=== PATIENT | male | born 1945 | race Caucasian/White ===

== ENCOUNTER → 2017-03-01 | Outpatient (CLI) | payer MEDICARE, BC ==
--- NOTE | 2017-03-01 10:22 | XR ---
EXAMINATION TYPE: XR chest 2V DATE OF EXAM: 03/01/2017 COMPARISON: NONE TECHNIQUE: PA and lateral views submitted. HISTORY: Preop for knee replacement FINDINGS: The lungs are clear and there is no pneumothorax, pleural effusion, or focal pneumonia. Hypertrophi c and degenerative change of the spine. Arthropathy of the shoulders. Chronic deformity of the right clavicle. Bilateral pleural-based thickening. Subsegmental linear atelectasis noted. IMPRESSION: 1. No acute process.
== END | disposition home or self-care (01) ==
LOC: RADXRMAIN 09:49
PROVIDERS: ATTEND Family Medicine
DX: R06.09 Other forms of dyspnea (principal); I10 Essential (primary) hypertension
CPT/HCPCS: 71020; 93005

== ENCOUNTER 2017-03-08 05:57 | Inpatient (IN) | payer MEDICARE, BC ==
[2017-03-04 14:18] VITALS: BMI 38.3
[~2017-03-08 05:57] MED LIST: DEXAMETHASONE SOD PHOSPHATE 10 MG/ML 1 ML VIAL IV ONE; HYDROmorphone 0.5 MG/0.5 ML SYRINGE IVP PRN; MIDAZOLAM 2 MG/2 ML VIAL IV PRN; ONDANSETRON 4 MG/2 ML VIAL IVP ONE
[2017-03-08] MEDS: LACTATED RINGERS 1,000 ML IV SCH ×3 (06:40→17:05)
[2017-03-08] MEDS ORDERED: LIDOCAINE 1% 20 ML VIAL (10MG/ML) FOR IV START INTRADERMA ONE (06:40)
[2017-03-08] MEDS ORDERED: MIDAZOLAM 2 MG/2 ML VIAL ONE (07:00)
[2017-03-08] MEDS ORDERED: LIDOCAINE 1% INJ 10MG/ML (20 ML MDV) ONE (07:00)
[2017-03-08] MEDS ORDERED: PROPOFOL 10 MG/ML 20 ML VIAL IV ONE (07:00)
[2017-03-08] MEDS ORDERED: fentaNYL (PF) 50 MCG/ML 2 ML AMP ONE (07:00)
[2017-03-08] MEDS ORDERED: SODIUM CHLORIDE 0.9% 150 ML with ceFAZolin 3,000 MG IV ONE ×2 (07:16)
[2017-03-08] MEDS ORDERED: ceFAZolin 3,000 MG in SODIUM CHLORIDE 0.9% IRRIGATIO 3,000 ML IRRIGATION ONE (07:34)
[2017-03-08] MEDS ORDERED: LACTATED RINGERS 1,000 ML IV ONE ×2 (07:47)
[2017-03-08] MEDS ORDERED: ONDANSETRON 4 MG/2 ML VIAL IVP PRN (09:41)
[2017-03-08] MEDS ORDERED: HYDROcodone/APAP 5-325MG 1 EACH TAB PO PRN (09:41)
[2017-03-08] MEDS ORDERED: NALOXONE 0.4 MG/ML 1 ML VIAL IV PRN (09:41)
[2017-03-08] MEDS ORDERED: TEMAZEPAM 15 MG CAP PO PRN (09:41)
[2017-03-08] MEDS ORDERED: NA PHOS,M-B/NA PHOS,DI-BA 133 ML ENEMA RECTAL PRN (09:41)
[2017-03-08] MEDS ORDERED: BISACODYL 10 MG SUPP RECTAL PRN (09:41)
[2017-03-08] MEDS ORDERED: HYDROmorphone 0.5 MG/0.5 ML SYRINGE IVP PRN ×3 (09:41)
[2017-03-08] MEDS ORDERED: MAGNESIUM HYDROXIDE 2,400 MG/10 ML CUP PO PRN (09:41)
[2017-03-08] MEDS ORDERED: hydrOXYzine PAMOATE 25 MG CAP PO PRN (09:41)
--- NOTE | 2017-03-08 10:22 | XR ---
EXAMINATION TYPE: XR knee limited RT DATE OF EXAM: 03/08/2017 CLINICAL HISTORY: Postoperative evaluation Two views of the right knee are submitted. Identified are changes of total knee arthroplasty with femoral and tibial components appearing well seated. Postsurgical soft tissue changes are noted. Alignment is anatomic.
[2017-03-08] MEDS: HYDROcodone/APAP 5-325MG 1 EACH TAB PO PRN ×3 (10:47→23:28)
[2017-03-08] MEDS: ceFAZolin 3 GM in SODIUM CHLORIDE 0.9% 100 ML IVPB SCH ×2 (15:24→23:28)
[2017-03-08] MEDS ORDERED: WARFARIN 5 MG TAB PO ONE (18:00)
[2017-03-08] MEDS: SENNOSIDES-DOCUSATE SODIUM 1 EACH TAB PO SCH (20:42)
--- NOTE | 2017-03-08 21:34 | CONS ---
CONSULTATION DATE OF CONSULTATION: March 08, 2017. REASON FOR CONSULTATION: Medical management requested by Dr. Ham. CONSULTATION: This is a 71-year-old patient of Dr. Shukla. Chronic stable medical conditions include hypertension, osteoarthritis. The patient has undergone a right total knee arthroplasty. Having some pain there. No nausea, vomiting. Denies any cardiac history. Lying in bed. at the bedside. Did tolerate some lunch. REVIEW OF SYSTEMS: CONSTITUTIONAL: None. HEENT none. Respiratory none. Cardiovascular none. Gastrointestinal none. Genitourinary: None. Musculoskeletal pain in different joints. Dermatological and hematologic, lymphatic none. Psychiatry none. Neurological none. PAST HISTORY: Of hypertension, osteoarthritis, macular degeneration, necrotizing infection of the left leg over 20 years ago. PAST SURGICAL HISTORY: Bariatric surgery, left clavicle fracture fixed with pins, screws, gastric bypass, right shoulder surgery. 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 The patient stopped smoking 17 years ago. He lives alone. The patient started smoking at age of 14, stopped smoking in 2002. smoked a pack a day. FAMILY HISTORY: None. HOME MEDICATIONS: Hyzaar 100/25 1 tab p.o. daily, Motrin 400 mg q.6h p.r.n., aspirin 81 mg a day. ALLERGIES: None. PHYSICAL EXAMINATION: Temperature 97.7, pulse 70 respiration 16, blood pressure 120/49, pulse ox 95% on room air. General appearance: Well built, BMI 38.4, lying in bed, not in distress. Eyes pupils equal. Conjunctivae normal. HEENT: Oral cavity normal. Neck JVD not raised. Mass not palpable. Respiratory effort lungs are clear. Cardiovascular first and second sounds no edema. ABDOMEN: Soft, nontender. Liver and spleen not palpable. Lymphatics: No lymph nodes palpable in the neck and axillae. Psychiatry alert x3. Mood and affect normal. Neurological pupils equal. Cranial nerves grossly intact. Power and sensation grossly intact. EXTREMITIES: Right knee in a dressing. INVESTIGATIONS: ASSESSMENT: 1. Right total knee arthroplasty. 2. Obesity; BMI 38.4. 3. Essential hypertension. 4. Primary osteoarthritis. PLAN: Home medications were resumed. The patient on Coumadin for DVT prophylaxis per Dr. Ham. Care was discussed with the patient and family at the bedside. Questions were answered. Thank you Dr. Ham. Copy to Dr. Shukla. MMODL / IJN: [id number] /
[2017-03-09] MEDS: LACTATED RINGERS 1,000 ML IV SCH ×3 (05:38→17:17)
[2017-03-09] MEDS: HYDROcodone/APAP 5-325MG 1 EACH TAB PO PRN ×4 (06:00→22:43)
[2017-03-09 06:56] LABS: Basophils % (A) 0 %; CH 27.5; CHCM 32.1; Eosinophils # (A) 0.1 k/uL (0-0.7); Eosinophils % (A) 1 %; HCT 36.3 % (39.0-53.0); HDW 2.61; HGB 11.3 gm/dL (13.0-17.5); Luc # (Auto) 0.16; Luc % (Auto) 1; Lymphocytes # (A) 1.1 k/uL (1.0-4.8); Lymphocytes % (A) 9 %; MCH 26.8 pg (25.0-35.0); MCHC 31.3 g/dL (31.0-37.0); MCV 85.9 fL (80.0-100.0); Mean Platelet Volume 7.9; Monocytes % (A) 9 %; Neutrophils # (A) 9.4 k/uL (1.3-7.7); Neutrophils % (A) 80 %; RBC 4.23 m/uL (4.30-5.90); WBC 11.8 k/uL (3.8-10.6); WBC (Perox) 11.95
[2017-03-09 07:05] LABS: INR 1.3 (<1.2)
[2017-03-09 07:06] LABS: Prothrombin Time 12.7 sec (9.0-12.0)
[2017-03-09] MEDS: LOSARTAN-HCTZ 50-12.5 MG 1 EACH TAB PO SCH (08:01)
--- NOTE | 2017-03-09 08:35 | P.PN ---
Subjective Progress Note Date: 03/09/17 Principal diagnosis: Status post right total knee arthroplasty This is a 71 year-old male post right total knee arthroplasty. This is post-op day 1. The patient was evaluated at the bedside today. The patient denies nausea, vomiting, abdominal pain, shortness of breath, and chest pain this morning. He states his pain is controlled at this time. The patient has not been up with physical therapy. Objective - Vital Signs Vital signs: Vital Signs Temp 98.7 F 03/09/17 07:00 Pulse 97 03/09/17 07:00 Resp 18 03/09/17 07:00 BP 161/76 03/09/17 07:00 Pulse Ox 94 L 03/09/17 07:00 Intake & Output 03/08/17 03/09/17 03/09/17 18:59 06:59 18:59 Intake Total 1971 1440 240 Output Total 200 1350 Balance 1771 90 240 Intake: IV 1551 Intake, IV Titration 960 Amount Lactated Ringers 1,000 ml 800 @ 100 mls/hr IV .Q10H [facility] Rx#:[id number] Lactated Ringers 1,000 ml 160 @ 20 mls/hr IV .Q24H [facility] Rx#:[id number] Oral 420 240 Other 480 Output: Urine 150 1350 Uretheral ([place]) 1350 Estimated Blood Loss 50 Other: Voiding Method Indwelling Catheter Indwelling Catheter - Exam The patient does not appear in acute distress. Alert and orientated x3. Dressing is clean dry and intact. Incision appears fine with no erythema or active drainage. Calf is soft and nontender. Good foot and ankle motion without difficulty. Sensation and circulatory status is intact. - Labs CBC & Chem 7: 03/09/17 06:30 Labs: Abnormal Lab Results - Last 24 Hours (Table) 03/09/17 03/09/17 Range/Units 06:30 06:30 WBC 11.8 H (3.8-10.6) k/uL RBC 4.23 L (4.30-5.90) m/uL Hgb 11.3 L (13.0-17.5) gm/dL Hct 36.3 L (39.0-53.0) % Neutrophils # 9.4 H (1.3-7.7) k/uL PT 12.7 H (9.0-12.0) sec INR 1.3 H (<1.2) Assessment and Plan (1) Primary localized osteoarthritis of right knee Current Visit: Yes Status: Acute Code(s): M17.11 - UNILATERAL PRIMARY OSTEOARTHRITIS, RIGHT KNEE SNOMED Code(s): 540601624 (2) Status post total left knee replacement Current Visit: Yes Status: Acute Code(s): Z96.652 - PRESENCE OF LEFT ARTIFICIAL KNEE JOINT SNOMED Code(s): 3668990893255 Plan: 1. Continue pain control 2. Anticoagulation with Coumadin per protocol 3. Continue physical therapy, CPM and ambulation 4. Anticipate discharge home later today or tomorrow with home care.
[2017-03-09] MEDS: MULTIVITAMINS, THERA 1 EACH TAB PO SCH (17:39)
[2017-03-09] MEDS ORDERED: WARFARIN 7.5 MG TAB PO ONE (18:00)
--- NOTE | 2017-03-09 19:08 | P.PN ---
Progress Note - Text Progress Note Date: 03/09/17 DATE OF SERVICE: 03/09/2017 PRESENTING COMPLAINT: Osteoarthritis of the right knee HISTORY OF PRESENT ILLNESS: 71-year-old male status post right total knee arthroplasty. INTERVAL HISTORY: 03/09/2017: Patient seen in follow-up today complains of right knee pain, agreeable to work with physical therapy. Tolerating his diet 8 between 50 and 75% of his breakfast, ambulatory with a walker and assistance. Last BM prior to admission REVIEW OF SYSTEMS: Done for constitutional ,cardiovascular, GI, pulmonary with relevant findings as above. CURRENT MEDICATIONS [place], Dulcolax, Hyzaar 50 /12.5 mg 2 tablets by mouth daily, Vistaril 25 mg by mouth every 4 hours when necessary, Restoril 15 mg by mouth at bedtime. PHYSICAL EXAM VITAL SIGNS: Temperature 98.7, pulse 97, respiratory rate 18, blood pressure 161/76, oxygen saturation 94% on room air. GENERAL APPEARANCE:. Lying in bed, not in distress. EYES: Pupils equal. Conjunctiva normal. NECK: JVD not raised. Mass not palpable. RESPIRATORY: Respiratory effort normal. Lungs clear to auscultation. CARDIOVASCULAR: First and second sounds normal. No edema. ABDOMEN: Soft. Liver and spleen not palpable. No tenderness. No mass palpable. PSYCHIATRY: Alert and oriented x3. Mood and affect normal. MUSCULOSKELETAL: Right knee surgical dressing in place no drainage noted mild swelling noted. INVESTIGATIONS: White blood cell count 11.8, hemoglobin 11.3, INR 1.3. ASSESSMENT: -Right total knee arthroplasty. -Leukocytosis, likely reactive to surgery. -Obesity BMI 38.4. -Essential hypertension. -Primary osteoarthritis of multiple joints bilateral. PLAN: Continue Coumadin for DVT prophylaxis, pain medications per orthopedic surgery, continue to work with PT and OT for gait training and strengthening. We will continue to monitor closely, plan of care discussed with the patient at the bedside he is in agreement. INTERVENTION SPECIALIST statement: Patient was seen and examined by nurse practitioner Alcira Lea and all elements of the case discussed with attending Dr. Brannon
[2017-03-09] MEDS: SENNOSIDES-DOCUSATE SODIUM 1 EACH TAB PO SCH (19:59)
--- NOTE | 2017-03-10 04:41 | PN ---
PROGRESS NOTE DATE OF SERVICE: 03/09/17. ATTENDING NOTE: This patient is seen and examined by me. I discussed with my nurse practitioner, Ms. Lea. The patient is status post right knee surgery, comfortable, tolerating a diet. No new issues. No chest pain or shortness of breath. PHYSICAL EXAMINATION: On examination, afebrile, pulse 79, respiratory rate 18, blood pressure 158/75. ASSESSMENT: 1. Right total knee arthroplasty. 2. Essential hypertension. PLAN: Patient is stable. Continue medication and treatment plan. MMODL / IJN: [id number] /
[2017-03-10] MEDS: HYDROcodone/APAP 5-325MG 1 EACH TAB PO PRN ×2 (06:18→14:04)
[2017-03-10 07:29] LABS: INR 1.4 (<1.2); Prothrombin Time 14.1 sec (9.0-12.0)
[2017-03-10] MEDS: LOSARTAN-HCTZ 50-12.5 MG 1 EACH TAB PO SCH (08:08)
[2017-03-10] MEDS: MULTIVITAMINS, THERA 1 EACH TAB PO SCH (08:08)
[2017-03-10 08:14] VITALS: BP 152/70; RESP 14; TEMP 98.4
--- NOTE | 2017-03-10 08:55 | P.DS ---
Providers Date of admission: 03/08/17 05:57 Expected date of discharge: 03/10/17 Attending physician: Kulwant Ham Consults: 03/08/17 09:41 Consult Physician Routine Consulting Provider: Alexis Brannon Consult Reason/Comments: medical management Do you want consulting provider notified?: Yes Primary care physician: Harshad Shukla - Discharge Diagnosis(es) (1) Primary localized osteoarthritis of right knee Current Visit: Yes Status: Acute (2) Status post total left knee replacement Current Visit: Yes Status: Acute Hospital Course: This is a pleasant 71-year-old male last seen in our office with complaints of right knee pain. Patient has known history of degenerative arthritis of the right knee and presented to discuss options. After discussion and consideration , patient elected to proceed with a total knee arthroplasty of the right knee. The patient was seen preoperatively and medically cleared for surgery by Dr. Shukla. The patient was admitted to [facility] and underwent right total knee arthroplasty on 03/08/[address] Ham. The procedure was performed without complications or sequelae. The patient has done well postoperatively. The patient was seen and evaluated at bedside today and denies any new complaints. Pain is reasonably controlled. Dressing is clean dry and intact. Incision looks fine with no erythema or active drainage. Calf is soft and nontender. The patient has full foot and ankle motion without difficulty. Patient's right lower extremity is neurovascular intact. Patient is orthopedically stable for discharge to home today. Pertinent Studies: Laboratory Tests 03/09/17 03/09/17 03/10/17 06:30 06:30 06:57 WBC 11.8 H RBC 4.23 L Hgb 11.3 L Hct 36.3 L PT 12.7 H 14.1 H INR 1.3 H 1.4 H Patient Condition at Discharge: Stable Plan - Discharge Summary Discharge Rx Participant: Yes New Discharge Prescriptions: New Aspirin 325 mg PO DAILY #30 tab HYDROcodone/APAP 5-325MG [[place] 5] 1 - 2 each PO Q4-6H PRN #90 tab PRN Reason: Pain Sennosides-Docusate Sodium [Senokot-S] 2 tab PO DAILY #30 tablet Warfarin [Coumadin] 2.5 mg PO DIRECTED #30 tab No Action Aspirin 81 mg PO DAILY Multivitamin [Men's Multi-Vitamin] 1 tab PO DAILY Ibuprofen [Motrin] 400 mg PO Q6HR PRN PRN Reason: Pain Losartan/Hydrochlorothiazide [Hyzaar 100-25 Tablet] 1 tab PO DAILY Discharge Medication List Aspirin 81 mg PO DAILY 12/26/13 [History] Multivitamin [Men's Multi-Vitamin] 1 tab PO DAILY 12/26/13 [History] Ibuprofen [Motrin] 400 mg PO Q6HR PRN 07/08/15 [History] Losartan/Hydrochlorothiazide [Hyzaar 100-25 Tablet] 1 tab PO DAILY 03/04/17 [ History] Aspirin 325 mg PO DAILY #30 tab 03/09/17 [Rx] HYDROcodone/APAP 5-325MG [[place] 5] 1 - 2 each PO Q4-6H PRN #90 tab 03/09/17 [Rx] Sennosides-Docusate Sodium [Senokot-S] 2 tab PO DAILY #30 tablet 03/09/17 [Rx] Warfarin [Coumadin] 2.5 mg PO DIRECTED #30 tab 03/09/17 [Rx] Follow up Appointment(s)/Referral(s): Kulwant Ham DO [Doctor of Osteopathic Medicine] - 03/23/17 8:50 am [facility], [NON-STAFF] - Harshad Shukla DO [Primary Care Provider] - 03/16/17 10:30 am Ambulatory/Diagnostic Orders: Continuous Passive Motion (CPM) Machine [DME.AMB1] Time Frame: 3 Weeks, Location : Determined By Patient Activity/Diet/Wound Care/Special Instructions: Weightbearing as tolerated with a walker Coumadin 2.5 mg 1 by mouth every other day for 7 days then take Aspirin 325mg daily for 1 month CPM 5-6 hours daily May shower in 3 days if no drainage from incision Keep incision clean and dry Call [facility] [phone] with questions or concerns CPM through [facility], please call when you arrive home [phone] Discharge Disposition: HOME WITH HOME HEALTH SERVICES
[2017-03-10 12:47] VITALS: PULSE 60
--- NOTE | 2017-03-10 19:12 | P.PN ---
Progress Note - Text Progress Note Date: 03/10/17 DATE OF SERVICE: 03/10/2017 PRESENTING COMPLAINT: Osteoarthritis of the right knee HISTORY OF PRESENT ILLNESS: 71-year-old male status post right total knee arthroplasty. INTERVAL HISTORY: 03/09/2017: Patient seen in follow-up today complains of right knee pain, agreeable to work with physical therapy. Tolerating his diet 8 between 50 and 75% of his breakfast, ambulatory with a walker and assistance. Last BM prior to admission REVIEW OF SYSTEMS: Done for constitutional ,cardiovascular, GI, pulmonary with relevant findings as above. CURRENT MEDICATIONS [place], Dulcolax, Hyzaar 50 /12.5 mg 2 tablets by mouth daily, Vistaril 25 mg by mouth every 4 hours when necessary, Restoril 15 mg by mouth at bedtime. PHYSICAL EXAM VITAL SIGNS: Temperature 98.4, pulse 91, respiratory rate 14, blood pressure 152/70, oxygen saturation 94% on room air GENERAL APPEARANCE:. Lying in bed, not in distress. EYES: Pupils equal. Conjunctiva normal. NECK: JVD not raised. Mass not palpable. RESPIRATORY: Respiratory effort normal. Lungs clear to auscultation. CARDIOVASCULAR: First and second sounds normal. No edema. ABDOMEN: Soft. Liver and spleen not palpable. No tenderness. No mass palpable. PSYCHIATRY: Alert and oriented x3. Mood and affect normal. MUSCULOSKELETAL: Right knee incision and ecchymotic edges well approximated, surgical dressing replaced no drainage noted mild swelling noted. INVESTIGATIONS: Labs: INR 1.4 ASSESSMENT: -Right total knee arthroplasty. -Leukocytosis, likely reactive to surgery. -Obesity BMI 38.4. -Essential hypertension. -Primary osteoarthritis of multiple joints bilateral. PLAN: Continue Coumadin for DVT prophylaxis, pain medications per orthopedic surgery, continue to work with PT and OT for gait training and strengthening. Patient will be discharging per orthopedic surgery today. VIOLIN MECHANIC statement: Patient was seen and examined by nurse practitioner Alcira Lea and all elements of the case discussed with attending Dr. Brannon
--- NOTE | 2017-03-11 05:36 | PN ---
PROGRESS NOTE DATE OF SERVICE: 03/10/2017 ATTENDING NOTE: This patient was seen and examined by me. I discussed with my nurse practitioner, Ms. Lea. The patient is status post right knee surgery, doing well, up and about with therapy, very keen to go home. No chest pain or short of breath. ON EXAM: Lungs are clear. CARDIOVASCULAR: First and second sounds normal. Afebrile, pulse 91, blood pressure 152/70. ASSESSMENT: 1. Status post right total knee arthroplasty. 2. Medical condition, stable. After discharge should follow with the family doctor. MMODL / IJN: [id number] /
--- NOTE | 2017-03-15 22:13 | OP ---
OPERATIVE REPORT DATE OF SERVICE: 03/08/17 SURGEON: Kulwant Ham Do SOAP GRINDER: Daisy Puga NP PREOPERATIVE DIAGNOSIS: Degenerative joint disease of the right knee. POSTOPERATIVE DIAGNOSIS: Degenerative joint disease of the right knee. PROCEDURE PERFORMED: Right total knee replacement arthroplasty utilizing Awa Press-Fit component. DESCRIPTION OF PROCEDURE: The patient was taken to the operative suite and placed in supine position. Spinal anesthesia was performed by the Department of Anesthesiology. Betadine prep was carried out over the right knee, mid thigh and mid calf. Sterile drapes were applied in the usual manner. Pneumatic tourniquet was inflated 350 mmHg. A medial parapatellar incision was developed. Medial retinaculum was incised. The patella was everted and dislocated laterally. The knee was brought into flexion and held in a leg pollard. The intramedullary cutting guide and jig was utilized in preparation for a size 10 right femoral component. Appropriate cuts were developed. Provisionary femoral component size 10 was impacted into position and alignment and stability noted. The tibial cutting guide was aligned and the wafer cut was performed. The menisci, both medial and lateral were excised. A size 7 tibial plate was then selected. The plate and 10 mm spacer was inserted and alignment and stability noted. The tibial tray was marked for position, held and appropriate peg holes were drilled in preparation for tibial tray. The patella was then shaped with a shelving planer and a size 38 patellar component was selected and appropriate peg holes initiated and trial component was prepared for a final component. Pulsavac and antibiotic solution was utilized in preparation for final component. There was a final size 7 trabecular metal three hole peg was inserted into the pre- drilled hole and impacted. The final size 10 femoral component was impacted into position. The final patellar component, a 38 component was placed and impacted. A final size 10 mm polyethylene tray was inserted into tibial plate and showed alignment. With the knee in slight flexion position, pneumatic tourniquet was deflated. The knee was irrigated with Pulsavac antibiotic solution. The superficial bleeding controlled with electrocauterizing. Medial retinaculum was approximated with #3 Vicryl suture in a horizontal mattress fashion. A #2 quill suture was utilized in reinforcing retinaculum. 2-0 Vicryl was utilized for the subcutaneous closure in an interrupted fashion. 3-0 quill suture was utilized and subcuticular closure. Dermabond was utilized to seal the wound. Betadine, Adaptic, sterile pressure dressing was applied. The patient was transferred to the recovery room in satisfactory postop condition. GROSS PATHOLOGY: There was evidence of tricompartment degenerative joint disease of the right knee with medial compartment varus valgus. MMNITISHL / IJN: [id number] / MTDD
--- NOTE | 2017-04-18 17:51 | PN ---
PROGRESS NOTE ADDENDUM TO PROGRESS NOTE: DATE OF SERVICE: 03/09/2017. ADDENDUM: On examination, lungs are clear. CARDIOVASCULAR: First and second sounds normal. PSYCH: Alert and oriented x3. MMODL / IJN: [id number] /
== END 2017-03-10 15:35 | disposition home health service (06) | DRG 470 ==
LOC: 2ORMAIN 05:57 → 3SUR 09:58
PROVIDERS: ADMIT Orthopaedic Surgery; ATTEND Orthopaedic Surgery
PROC: 0SRC06A Replacement of Right Knee Joint with Oxidized Zirconium on Polyethylene Synthetic Substitute, Uncemented, Open Approach (ICD-10-PCS; principal; 2017-03-08 07:00)
DX: M17.11 Unilateral primary osteoarthritis, right knee (principal); I10 Essential (primary) hypertension; H35.30 Unspecified macular degeneration; E66.9 Obesity, unspecified; Z98.84 Bariatric surgery status; Z87.891 Personal history of nicotine dependence; Z79.82 Long term (current) use of aspirin; Z79.1 Long term (current) use of non-steroidal anti-inflammatories (NSAID); Z68.38 Body mass index [BMI] 38.0-38.9, adult; Z79.899 Other long term (current) drug therapy; Z83.3 Family history of diabetes mellitus; Z82.49 Family history of ischemic heart disease and other diseases of the circulatory system; Z96.652 Presence of left artificial knee joint
CPT/HCPCS: 85025; 85610; 88300

== ENCOUNTER 2019-03-26 11:47 | Inpatient (IN) | payer MEDICARE, BC ==
[2019-03-26] MEDS ORDERED: ASPIRIN 81 MG PO STA (12:17)
[2019-03-26] MEDS ORDERED: DILTIAZEM DRIP BOLUS FROM BAG 1 MG SOLN IV ONE ×2 (12:17→14:35)
--- NOTE | 2019-03-26 12:30 | ED ---
Extremity Problem HPI - General Chief complaint: Extremity Problem,Nontraumatic Stated complaint: abnormal EKG Time Seen by Provider: 03/26/19 12:11 Source: patient, RN notes reviewed Mode of arrival: ambulatory Limitations: no limitations - History of Present Illness Initial comments: This is a 73-year-old male who was sent by his doctor for evaluation for tachycardia as well as left calf pain. Patient complaining of increased pain and swelling to left lower extremity he does not notice any palpitations he does have some exertional dyspnea no fevers chills nausea times sweats or other symptoms he does relate that in the remote past she did have a irregular heartbeat he does not recall what was done and apparently had resolved itself. No other modifying factors this time the patient is on Coumadin MD Complaint: extremity pain, extremity swelling, other - Related Data Home Medications Medication Instructions Recorded Confirmed Multivitamin [Men's Multi-Vitamin] 1 tab PO DAILY 12/26/13 03/26/19 Aspirin EC [Ecotrin Low Dose] 81 mg PO DAILY 03/26/19 03/26/19 Vit C/E/Zn/Coppr/Lutein/Zeaxan 1 cap PO DAILY 03/26/19 03/26/19 [Preservision Areds 2 Softgel] Allergies Allergy/AdvReac Type Severity Reaction Status Date / Time No Known Allergies Allergy Verified 03/26/19 14:09 Review of Systems ROS Statement: Those systems with pertinent positive or pertinent negative responses have been documented in the HPI. ROS Other: All systems not noted in ROS Statement are negative. Past Medical History Past Medical History: Eye Disorder, Hypertension, Osteoarthritis (OA) Additional Past Medical History / Comment(s): MACULAR DEGENERATION, streptococcal infection of the left leg with necrotizing infection and sepsis 20 years ago, left lower extremity cellulitis and ascending lymphangitis with chronic lymphedema History of Any Multi-Drug Resistant Organisms: Other MDRO Date of last positivie culture/infection: 1995 MDRO Source:: l leg Past Surgical History: Bariatric Surgery, Joint Replacement, Orthopedic Surgery Additional Past Surgical History / Comment(s): LEFT TOTAL KNEE, clavicle fracture fixed with pins and screws/ SCREW REMOVED RIGHT CLAVICLE. gastric bypass, RIGHT SHOULDER SURGERY Past Anesthesia/Blood Transfusion Reactions: No Reported Reaction Past Psychological History: No Psychological Hx Reported Smoking Status: Former smoker Past Alcohol Use History: Rare Past Drug Use History: None Reported - Past Family History Mother Family Medical History: No Reported History Father Family Medical History: Diabetes Mellitus General Exam - General Exam Comments Initial Comments: This is a well-developed well-nourished awake alert oriented times 3 male Limitations: no limitations General appearance: alert, in no apparent distress Head exam: Present: atraumatic, normocephalic, normal inspection Eye exam: Present: normal appearance, PERRL, EOMI. Absent: scleral icterus, conjunctival injection, periorbital swelling ENT exam: Present: normal exam, mucous membranes moist Neck exam: Present: normal inspection. Absent: tenderness, meningismus, lymphadenopathy Respiratory exam: Present: normal lung sounds bilaterally. Absent: respiratory distress, wheezes, rales, rhonchi, stridor Cardiovascular Exam: Present: tachycardia, irregular rhythm. Absent: systolic murmur, diastolic murmur, rubs, gallop, clicks GI/Abdominal exam: Present: soft, normal bowel sounds. Absent: distended, tenderness, guarding, rebound, rigid Extremities exam: Present: full ROM, tenderness, normal capillary refill, calf tenderness (Tenderness to the left calf with some peripheral edema.), other. Absent: pedal edema, joint swelling Back exam: Present: normal inspection Neurological exam: Present: alert, oriented X3, CN II-XII intact Psychiatric exam: Present: normal affect, normal mood Skin exam: Present: warm, dry, intact, normal color. Absent: rash Course Vital Signs 03/26/19 03/26/19 03/26/19 11:58 12:22 12:23 Temperature 97.8 F Pulse Rate 150 H 142 H Pulse Rate [ 145 H Supine Motor And Controls Tester] Respiratory 19 16 Rate Blood Pressure 145/79 117/94 O2 Sat by Pulse 98 100 Oximetry - Reevaluation(s) Reevaluation #1: 03/26/19 15:22 Patient did not initially respond to the Cardizem was given he did have have increased dosing. Reevaluation #2: 03/26/19 15:22 After repeat dosing the patient did have some improvement in his rate Medical Decision Making - Medical Decision Making I did discuss findings with the patient the ultrasound shows a nonocclusive DVT in the left leg. Patient does have atrial flutter with rapid ventricular response. Patient will be admitted with cardiology consultation the case was discussed with patient as well as with Dr. Rodriguez. The patient currently is not on any Coumadin he will be started on heparin - Lab Data Result diagrams: 03/26/19 12:12 03/26/19 12:12 Lab Results 03/26/19 03/26/19 03/26/19 Range/Units 12:12 12:12 12:12 WBC 8.9 (3.8-10.6) k/uL RBC 5.23 (4.30-5.90) m/uL Hgb 14.1 (13.0-17.5) gm/dL Hct 43.6 (39.0-53.0) % MCV 83.3 (80.0-100.0) fL MCH 27.0 (25.0-35.0) pg MCHC 32.4 (31.0-37.0) g/dL RDW 14.4 (11.5-15.5) % Plt Count 308 (150-450) k/uL Neutrophils % 63 % Lymphocytes % 23 % Monocytes % 7 % Eosinophils % 5 % Basophils % 1 % Neutrophils # 5.6 (1.3-7.7) k/uL Lymphocytes # 2.0 (1.0-4.8) k/uL Monocytes # 0.6 (0-1.0) k/uL Eosinophils # 0.4 (0-0.7) k/uL Basophils # 0.1 (0-0.2) k/uL PT 10.0 (9.0-12.0) sec INR 0.9 (<1.2) APTT 24.0 (22.0-30.0) sec D-Dimer 0.36 (<0.60) mg/L FEU Sodium 140 (137-145) mmol/L Potassium 4.8 (3.5-5.1) mmol/L Chloride 104 (98-107) mmol/L Carbon Dioxide 26 (22-30) mmol/L Anion Gap 10 mmol/L BUN 9 (9-20) mg/dL Creatinine 0.95 (0.66-1.25) mg/dL Est GFR (CKD-EPI)AfAm >90 (>60 ml/min/1.73 sqM) Est GFR (CKD-EPI)NonAf 78 (>60 ml/min/1.73 sqM) Glucose 101 H (74-99) mg/dL Calcium 9.3 (8.4-10.2) mg/dL Magnesium 2.1 (1.6-2.3) mg/dL Total Bilirubin 0.7 (0.2-1.3) mg/dL AST 23 (17-59) U/L ALT 27 (21-72) U/L Alkaline Phosphatase 61 (38-126) U/L Creatine Kinase 90 (55-170) U/L Troponin I (0.000-0.034) ng/mL Total Protein 7.4 (6.3-8.2) g/dL Albumin 4.4 (3.5-5.0) g/dL TSH 0.981 (0.465-4.680) mIU/L 03/26/19 Range/Units 12:12 WBC (3.8-10.6) k/uL RBC (4.30-5.90) m/uL Hgb (13.0-17.5) gm/dL Hct (39.0-53.0) % MCV (80.0-100.0) fL MCH (25.0-35.0) pg MCHC (31.0-37.0) g/dL RDW (11.5-15.5) % Plt Count (150-450) k/uL Neutrophils % % Lymphocytes % % Monocytes % % Eosinophils % % Basophils % % Neutrophils # (1.3-7.7) k/uL Lymphocytes # (1.0-4.8) k/uL Monocytes # (0-1.0) k/uL Eosinophils # (0-0.7) k/uL Basophils # (0-0.2) k/uL PT (9.0-12.0) sec INR (<1.2) APTT (22.0-30.0) sec D-Dimer (<0.60) mg/L FEU Sodium (137-145) mmol/L Potassium (3.5-5.1) mmol/L Chloride (98-107) mmol/L Carbon Dioxide (22-30) mmol/L Anion Gap mmol/L BUN (9-20) mg/dL Creatinine (0.66-1.25) mg/dL Est GFR (CKD-EPI)AfAm (>60 ml/min/1.73 sqM) Est GFR (CKD-EPI)NonAf (>60 ml/min/1.73 sqM) Glucose (74-99) mg/dL Calcium (8.4-10.2) mg/dL Magnesium (1.6-2.3) mg/dL Total Bilirubin (0.2-1.3) mg/dL AST (17-59) U/L ALT (21-72) U/L Alkaline Phosphatase (38-126) U/L Creatine Kinase (55-170) U/L Troponin I 0.034 (0.000-0.034) ng/mL Total Protein (6.3-8.2) g/dL Albumin (3.5-5.0) g/dL TSH (0.465-4.680) mIU/L - EKG Data -: EKG Interpreted by Me EKG Comments: Atrial flutter with a variable AV block QRS 102 QT since QTC 334/518. With that submitted from the office which showed a tachycardia of unclear etiology was also compared with an EKG dated 03/01/2017 which showed sinus rhythm with PACs - Radiology Data Radiology results: report reviewed (I did review the imaging and report no acute findings x-ray there is evidence of a nonocclusive DVT in the left leg.), image reviewed Critical Care Time Critical Care Time: Yes Critical Care Time: 42 minutes of critical care time which includes initial presentation with history physical labs x-rays multiple reevaluation the patient response to therapy discuss with the patient regarding findings discussed with the main physician admission orders and documentation of the above Disposition Clinical Impression: Atrial flutter, Tachycardia, DVT (deep venous thrombosis) Disposition: ADMITTED IP TO THIS [facility] Condition: Fair Referrals: Harshad Shukla DO [Primary Care Provider] - 1-2 days
[2019-03-26 12:46] LABS: Basophils # (A) 0.1 k/uL (0-0.2); Basophils % (A) 1 %; Eosinophils # (A) 0.4 k/uL (0-0.7); Eosinophils % (A) 5 %; HCT 43.6 % (39.0-53.0); HGB 14.1 gm/dL (13.0-17.5); Lymphocytes % (A) 23 %; MCHC 32.4 g/dL (31.0-37.0); MCV 83.3 fL (80.0-100.0); Mean Platelet Volume 7.1; Monocytes # (A) 0.6 k/uL (0-1.0); Monocytes % (A) 7 %; Neutrophils # (A) 5.6 k/uL (1.3-7.7); Neutrophils % (A) 63 %; Platelet Count 308 k/uL (150-450); RBC 5.23 m/uL (4.30-5.90); RDW 14.4 % (11.5-15.5); WBC 8.9 k/uL (3.8-10.6)
[2019-03-26] MEDS: DILTIAZEM 125 MG in SODIUM CHLORIDE 0.9% 100 ML IV SCH ×2 (12:49→23:37)
[2019-03-26 13:06] LABS: D-Dimer 0.36 mg/L FEU (<0.60); INR 0.9 (<1.2)
--- NOTE | 2019-03-26 13:06 | XR ---
EXAMINATION TYPE: XR chest 2V DATE OF EXAM: 03/26/2019 COMPARISON: 03/01/2017 HISTORY: Dysrhythmia. Lower extremity swelling. TECHNIQUE: Frontal and lateral views of the chest are obtained. FINDINGS: There is no focal air space opacity, pleural effusion, or pneumothorax seen. The cardiac silhouette size is upper limits of normal. The osseous structures are intact. Bridging anterior ost eophytes are seen of the thoracic spine. IMPRESSION: No acute cardiopulmonary process.
[2019-03-26 13:13] LABS: ALT 27 U/L (21-72); AST 23 U/L (17-59); African American GFR (CKD) >90 (>60 ml/min/1.73 sqM); Albumin 4.4 g/dL (3.5-5.0); Alkaline Phosphatase 61 U/L (38-126); Anion Gap 10 mmol/L; Blood Urea Nitrogen 9 mg/dL (9-20); Calcium 9.3 mg/dL (8.4-10.2); Carbon Dioxide 26 mmol/L (22-30); Chloride 104 mmol/L (98-107); Creatine Kinase 90 U/L (55-170); Glucose 101 mg/dL (74-99); Magnesium 2.1 mg/dL (1.6-2.3); Potassium 4.8 mmol/L (3.5-5.1); Sodium 140 mmol/L (137-145); Total Bilirubin 0.7 mg/dL (0.2-1.3); Total Protein 7.4 g/dL (6.3-8.2)
--- NOTE | 2019-03-26 14:11 | US ---
EXAMINATION TYPE: US venous doppler duplex LE LT DATE OF EXAM: 03/26/2019 1:55 PM COMPARISON: NONE CLINICAL HISTORY: Left leg pain with a flutter. Prior enlarged lymph node was resected per patient. L eft lower leg swelling x 1 week; elevated heart rate. SIDE PERFORMED: Left TECHNIQUE: The lower extremity deep venous system is examined utilizing real time linear array sonog isaiah with graded compression, Doppler sonography and color-flow sonography. VESSELS IMAGED: Common Femoral Vein Deep Femoral Vein Greater Saphenous Vein * Femoral Vein/ Dual Femoral Vein noted mid Popliteal Vein Small Saphenous Vein * Proximal Calf Veins (* superficial vessels) Enlarged lymph node seen in left groin = 5.5 x 1.4 x 1.8 cm. Left Leg: Possible non occluding DVT in smaller of 2 calf veins left upper calf, as minimal color fl ow is seen and vein compresses to wall echoes, otherwise, is negative for DVT more superiorly. IMPRESSION: 1. Nonocclusive DVT below the knee. 2. Adenopathy left inguinal region.
[2019-03-26] MEDS ORDERED: NALOXONE 0.4 MG/ML 1 ML VIAL IV PRN (15:26)
[2019-03-26] MEDS ORDERED: HEPARIN SODIUM,PORCINE 5,000 UNIT/ML 1 ML VIAL IV PRN (15:29)
[2019-03-26] MEDS ORDERED: HEPARIN SODIUM,PORCINE 5,000 UNIT/ML 1 ML VIAL IV ONE (15:29)
[2019-03-26] MEDS ORDERED: HEPARIN SOD,PORK IN 0.45% NACL 25,000 UNIT in 0.45% NACL 1 250ML.BAG IV SCH (15:30)
[2019-03-26] MEDS: SODIUM CHLORIDE 0.9% 1,000 ML IV SCH (15:59)
[2019-03-26] MEDS ORDERED: INFLUENZA VACCINE (6 MOS+) 60 MCG/0.5 ML SYRINGE IM ONE (16:18)
[2019-03-27 05:42] LABS: Basophils # (A) 0.1 k/uL (0-0.2); Basophils % (A) 1 %; Eosinophils # (A) 0.5 k/uL (0-0.7); Eosinophils % (A) 7 %; HCT 37.8 % (39.0-53.0); HGB 12.3 gm/dL (13.0-17.5); Lymphocytes # (A) 1.6 k/uL (1.0-4.8); Lymphocytes % (A) 24 %; MCH 27.6 pg (25.0-35.0); MCHC 32.6 g/dL (31.0-37.0); MCV 84.6 fL (80.0-100.0); Mean Platelet Volume 6.6; Monocytes # (A) 0.6 k/uL (0-1.0); Monocytes % (A) 9 %; Neutrophils # (A) 3.7 k/uL (1.3-7.7); Neutrophils % (A) 55 %; Platelet Count 259 k/uL (150-450); RBC 4.47 m/uL (4.30-5.90); RDW 14.1 % (11.5-15.5); WBC 6.7 k/uL (3.8-10.6)
[2019-03-27] MEDS ORDERED: ASPIRIN 81 MG PO SCH (09:00)
[2019-03-27] MEDS: VIT A,C & E-LUTEIN-MINERALS 1 EACH TAB PO SCH (09:03)
[2019-03-27] MEDS: MULTIVITAMINS, THERA 1 EACH TAB PO SCH (09:03)
--- NOTE | 2019-03-27 10:21 | P.HPIM ---
History of Present Illness This is a pleasant 73 years old male with past medical history of hypertension, osteoarthritis, left leg lymphedema and cellulitis, gastric bypass surgery, necrotizing fasciitis, coronary artery disease status post CABG. Patient was complaining of from left leg swelling and tingling about 2 weeks, he went to see his PCP Dr. Shukla and her vital check was noticed to be tachycardic and he was sent to the hospital. Patient denies chest pain or dyspnea. No nausea vomiting. No change in urine or bowel habits. No fever. Vitas looks stable, however on the presentation his heart rate was 150. Labs show an unremarkable CBC, BMP and liver enzymes. Troponin is 0.03. EKG showing atrial fibrillation's with heart rate of 145. No significant ST-T changes and QTC is 5.8 Doppler showing nonoccluding DVT on the left side, with a large lymph nodes and the groin about 5.5 cm. (patient states that he has enlarged lymph nodes in his left groin mass was taken off about 20-25% ago as per patient no further workup needed after that) Chest x-ray showing no acute cardiopulmonary process, per Radiologist. In the emergency room patient was started on heparin drip and Cardizem drip at 10 mg per hour. Also she is on aspirin. Review of Systems CONSTITUTIONAL: No fever, no malaise, no fatigue. HEENT: No recent visual problems or hearing problems. Denied any sore throat. CARDIOVASCULAR: No orthopnea, PND, no palpitations, no syncope. PULMONARY: No shortness of breath, no cough, no hemoptysis. GASTROINTESTINAL: No diarrhea, no nausea, no vomiting, no abdominal pain. Normoactive bowel sounds. NEUROLOGICAL: No headaches, no weakness, no numbness. HEMATOLOGICAL: Denies any bleeding or petechiae. GENITOURINARY: Denies any burning micturition, frequency, or urgency. MUSCULOSKELETAL/RHEUMATOLOGICAL: Denies any joint pain, swelling, or any muscle pain. ENDOCRINE: Denies any polyuria or polydipsia. 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 History of Any Multi-Drug Resistant Organisms: Other MDRO Date of last positivie culture/infection: 1995 MDRO Source:: l leg Past Surgical History: Bariatric Surgery, Coronary Bypass/CABG, Joint Replacement, Orthopedic Surgery Additional Past Surgical History / Comment(s): Gastric bypass, bilateral total knee arhtroplasties, R clavicle fracture with screw which was removed when he had R shoulder dislocation/surgery, L groin lymph node removed d/t lymphadenopathy then surgery for L groin hematoma, colonoscopy. Past Anesthesia/Blood Transfusion Reactions: No Reported Reaction Smoking Status: Former smoker - Past Family History Mother Family Medical History: Diabetes Mellitus Father Family Medical History: Diabetes Mellitus Medications and Allergies Home Medications Medication Instructions Recorded Confirmed Type Multivitamin [Men's Multi-Vitamin] 1 tab PO DAILY 12/26/13 03/26/19 History Aspirin EC [Ecotrin Low Dose] 81 mg PO DAILY 03/26/19 03/26/19 History Vit C/E/Zn/Coppr/Lutein/Zeaxan 1 cap PO DAILY 03/26/19 03/26/19 History [Preservision Areds 2 Softgel] Allergies Allergy/AdvReac Type Severity Reaction Status Date / Time No Known Allergies Allergy Verified 03/26/19 14:09 Physical Exam Vitals: Vital Signs Temp Pulse Pulse Pulse Resp BP BP 03/27/19 08:00 98.1 F 77 18 145/92 03/27/19 04:00 97.7 F 72 16 131/63 03/26/19 23:15 98.0 F 63 16 149/82 03/26/19 20:00 97.9 F 76 18 126/69 03/26/19 16:02 20 03/26/19 16:01 20 03/26/19 16:00 97.5 F L 85 20 155/81 03/26/19 15:41 97.6 F 100 20 129/87 03/26/19 12:23 145 H 03/26/19 12:22 142 H 16 117/94 03/26/19 11:58 97.8 F 150 H 19 145/79 Pulse Ox 03/27/19 08:00 98 03/27/19 04:00 99 03/26/19 23:15 98 03/26/19 20:00 99 03/26/19 16:02 03/26/19 16:01 03/26/19 16:00 98 03/26/19 15:41 99 03/26/19 12:23 03/26/19 12:22 100 03/26/19 11:58 98 Intake and Output 03/26/19 03/27/19 03/27/19 22:59 06:59 14:59 Intake Total 220.498 0 Balance 220.498 0 Intake: Intake, IV Titration 220.498 Amount Diltiazem 125 mg In 54 Sodium Chloride 0.9% 100 ml @ 10 MG/HR 10 mls/hr IV .[id number] [facility] Rx#: [id number] Heparin Sod,Pork in 0.45% 166.498 NaCl 25,000 unit In 0.45 % NaCl 1 250ml.bag @ 7.9 UNITS/KG/HR 10.033 mls/hr IV .Q24H [facility] Rx#: [id number] Oral 0 Other: Voiding Method Toilet Toilet # Voids 2 1 Weight 126.4 kg GENERAL: The patient is alert and oriented x3, not in any acute distress. Well developed, well nourished. HEENT: Pupils are round and equally reacting to light. EOMI. No scleral icterus. No conjunctival pallor. Normocephalic, atraumatic. No pharyngeal erythema. No thyromegaly. CARDIOVASCULAR: S1 and S2 present. No murmurs, rubs, or gallops. PULMONARY: Chest is clear to auscultation, no wheezing or crackles. -ABDOMEN: Soft, nontender, nondistended, normoactive bowel sounds. No palpable organomegaly. Scar in the left groin from previous lymph node removal about 25% ago as per patient. MUSCULOSKELETAL: No joint swelling or deformity. -EXTREMITIES: No cyanosis, clubbing,. Left leg is swollen, warm and indurated NEUROLOGICAL: Gross neurological examination did not reveal any focal deficits. SKIN: No rashes. No petechiae Results CBC & Chem 7: 03/27/19 05:01 03/26/19 12:12 Labs: Abnormal Lab Results - Last 24 Hours (Table) 03/26/19 03/26/19 03/27/19 Range/Units 12:12 22:13 05:01 Hgb 12.3 L (13.0-17.5) gm/dL Hct 37.8 L (39.0-53.0) % APTT 32.2 H (22.0-30.0) sec Glucose 101 H (74-99) mg/dL 03/27/19 Range/Units 05:01 Hgb (13.0-17.5) gm/dL Hct (39.0-53.0) % APTT 40.9 H (22.0-30.0) sec Glucose (74-99) mg/dL Thrombosis Risk Factor Assmnt - Choose All That Apply Any of the Below Risk Factors Present?: Yes Each Factor Represents 1 point: Obesity (BMI >25) Other Risk Factors: Yes Each Risk Factor Represents 3 Points: Age 75 years or older, History of DVT/PE Other congenital or acquired thrombophilia - If yes, enter type in comment: No Thrombosis Risk Factor Assessment Total Risk Factor Score: 7 Thrombosis Risk Factor Assessment Level: High Risk Assessment and Plan Assessment: A. fib with RVR acute left DVT Acute left nonobstructive DVT left groin lymphadenopathy Prolonged QT interval History of coronary artery disease status post CABG Hypertension Primary osteoarthritis Chronic left leg lymphedema Status post Bariatric and gastric bypass surgery History of necrotizing fasciitis Exit smoker Plan: This is a pleasant 73 years old male who presents with A. fib and RVR and left DVT follow-up recommendation by composition roll maker and cutter already evaluated the patient. Continue with heparin drip and Cardizem drip and switched to oral medication when appropriate. We'll consult heavy lift rigger for DVT and left groin lymphadenopathy. Labs and medication were reviewed.. Continue same treatment. Continue with symptomatic treatment. Resume home medication. Monitor lytes and vitals. DVT and GI prophylaxis. Further recommendations of the clinical course of the patient DVT prophylaxis: heparin GI Prophylaxis: Pepcid PT/OT: Pending Prognosis is guarded
--- NOTE | 2019-03-27 10:28 | P.CRDCN ---
History of Present Illness Consult date: 03/27/19 Requesting physician: Gene Rodriguez Consult reason: atrial flutter Chief complaint: Left lower extremity edema History of present illness: This is a pleasant 73-year-old gentleman with no prior documented history of hypertension, no diabetes, no hyperlipidemia, no prior CVA, no hist ory of congestive heart failure, he is a nonsmoker, rarely drinks alcohol. He does have a history of necrotizing fasciitis several years ago the left lower extremity. Patient has noticed recently some swelling in that left leg, and for this reason went to see his primary care doctor he checked his heart rate and blood pressure while in the office, noted his heart rate to be significantly elevated and the patient was referred to come to the hospital for admission. He also states that 15 years ago or so he may have been told to have an irregular heartbeat, he even more monitor at that time, but was not placed on any blood thinners. EKG on presentation here showed atrial flutter with rapid ventricular response, nonspecific ST-T wave changes. Venous duplex study was also performed which revealed a nonocclusive DVT below the knee on the left leg. Adenopathy of the left inguinal region. Chest x-ray did not reveal any acute cardiopulmonary process. Blood pressure 144/90 with a heart rate in the 70s, 98% on room air. White blood cell count 6.7, hemoglobin 12.3, platelet count 259. D-dimer 0.3. Sodium 140, potassium 4.8, BUN 9 and creatinine 0.9. Troponin 0.034. TSH 0.981. 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 History of Any Multi-Drug Resistant Organisms: Other MDRO Date of last positivie culture/infection: 1995 MDRO Source:: l leg Past Surgical History: Bariatric Surgery, Coronary Bypass/CABG, Joint Replacement, Orthopedic Surgery Additional Past Surgical History / Comment(s): Gastric bypass, bilateral total knee arhtroplasties, R clavicle fracture with screw which was removed when he had R shoulder dislocation/surgery, L groin lymph node removed d/t ly mphadenopathy then surgery for L groin hematoma, colonoscopy. Past Anesthesia/Blood Transfusion Reactions: No Reported Reaction Smoking Status: Former smoker - Past Family History Mother Family Medical History: Diabetes Mellitus Father Family Medical History: Diabetes Mellitus Medications and Allergies Home Medications Medication Instructions Recorded Confirmed Type Multivitamin [Men's Multi-Vitamin] 1 tab PO DAILY 12/26/13 03/26/19 History Aspirin EC [Ecotrin Low Dose] 81 mg PO DAILY 03/26/19 03/26/19 History Vit C/E/Zn/Coppr/Lutein/Zeaxan 1 cap PO DAILY 03/26/19 03/26/19 History [Preservision Areds 2 Softgel] Allergies Allergy/AdvReac Type Severity Reaction Status Date / Time No Known Allergies Allergy Verified 03/26/19 14:09 Physical Exam Vitals: Vital Signs Temp Pulse Pulse Pulse Resp BP BP 03/27/19 08:00 98.1 F 77 18 145/92 03/27/19 04:00 97.7 F 72 16 131/63 03/26/19 23:15 98.0 F 63 16 149/82 03/26/19 20:00 97.9 F 76 18 126/69 03/26/19 16:02 20 03/26/19 16:01 20 03/26/19 16:00 97.5 F L 85 20 155/81 03/26/19 15:41 97.6 F 100 20 129/87 03/26/19 12:23 145 H 03/26/19 12:22 142 H 16 117/94 03/26/19 11:58 97.8 F 150 H 19 145/79 Pulse Ox 03/27/19 08:00 98 03/27/19 04:00 99 03/26/19 23:15 98 03/26/19 20:00 99 03/26/19 16:02 03/26/19 16:01 03/26/19 16:00 98 03/26/19 15:41 99 03/26/19 12:23 03/26/19 12:22 100 03/26/19 11:58 98 Intake and Output 03/26/19 03/27/19 03/27/19 22:59 06:59 14:59 Intake Total 220.498 0 Balance 220.498 0 Intake: Intake, IV Titration 220.498 Amount Diltiazem 125 mg In 54 Sodium Chloride 0.9% 100 ml @ 10 MG/HR 10 mls/hr IV .[id number] [facility] Rx#: [id number] Heparin Sod,Pork in 0.45% 166.498 NaCl 25,000 unit In 0.45 % NaCl 1 250ml.bag @ 7.9 UNITS/KG/HR 10.033 mls/hr IV .Q24H [facility] Rx#: [id number] Oral 0 Other: Voiding Method Toilet Toilet # Voids 2 1 Weight 126.4 kg PHYSICAL EXAMINATION: GENERAL: 73-year-old gentleman in no acute distress at the time of my examination HEENT: Head is atraumatic, normocephalic. Pupils equal, round. Sclera anicteric. Conjunctiva are clear. Mucous membranes of the mouth are moist. Neck is supple. There is no elevated jugular venous pressure. No carotid bruit is heard. HEART EXAMINATION: S1 and S2 irregularly irregular CHEST EXAMINATION: Lungs are clear to auscultation and precussion. No chest wall tenderness is noted on palpation or with deep breathing. ABDOMEN: Soft, nontender. Bowel sounds are heard. No organomegaly noted. EXTREMITIES: 2+ peripheral pulses with 1-2+ edema of the left lower extremity with evidence of erythema and 2 open ulcerated areas. NEUROLOGIC patient is awake, alert and oriented 3. . Results 03/27/19 05:01 03/26/19 12:12 Cardiac Enzymes 03/26/19 03/26/19 Range/Units 12:12 12:12 AST 23 (17-59) U/L Troponin I 0.034 (0.000-0.034) ng/mL Coagulation 03/26/19 03/26/19 03/27/19 Range/Units 12:12 22:13 05:01 PT 10.0 (9.0-12.0) sec APTT 24.0 32.2 H 40.9 H (22.0-30.0) sec CBC 03/26/19 03/27/19 Range/Units 12:12 05:01 WBC 8.9 6.7 (3.8-10.6) k/uL RBC 5.23 4.47 (4.30-5.90) m/uL Hgb 14.1 12.3 L (13.0-17.5) gm/dL Hct 43.6 37.8 L (39.0-53.0) % Plt Count 308 259 (150-450) k/uL Comprehensive Metabolic Panel 03/26/19 Range/Units 12:12 Sodium 140 (137-145) mmol/L Potassium 4.8 (3.5-5.1) mmol/L Chloride 104 (98-107) mmol/L Carbon Dioxide 26 (22-30) mmol/L BUN 9 (9-20) mg/dL Creatinine 0.95 (0.66-1.25) mg/dL Glucose 101 H (74-99) mg/dL Calcium 9.3 (8.4-10.2) mg/dL AST 23 (17-59) U/L ALT 27 (21-72) U/L Alkaline Phosphatase 61 (38-126) U/L Total Protein 7.4 (6.3-8.2) g/dL Albumin 4.4 (3.5-5.0) g/dL Current Medications Generic Name Dose Route Start Last Admin Trade Name Freq PRN Reason Stop Dose Admin Aspirin 81 mg 03/27/19 09:00 03/27/19 09:03 Aspirin PO 81 mg DAILY TOMASA Administration Heparin Sodium (Porcine) 0 unit 03/26/19 15:29 Heparin IV PER PROTOCOL PRN Low PTT Protocol Diltiazem HCl 125 mg/ Sodium 125 mls @ 10 mls/hr 03/26/19 12:30 03/26/19 23:37 Chloride IV 5 mg/hr .[id number] TOMASA 5 mls/hr Administration 10 MG/HR Sodium Chloride 1,000 mls @ 20 mls/hr 03/26/19 15:30 03/26/19 15:59 Saline 0.9% IV 20 mls/hr .Q24H [facility]A Administration Heparin Sodium/Sodium Chloride 250 mls @ 10.033 mls/hr 03/26/19 15:30 03/27/19 05:59 25,000 unit/ Sodium Chloride IV 12.9 units/kg/hr .Q24H TOMASA 16.384 mls/hr Titration Protocol 7.9 UNITS/KG/HR Multivitamins 1 each 03/27/19 09:00 03/27/19 09:03 Theragran PO 1 each DAILY [facility]OMASA Administration Multivitamins/Minerals 1 each 03/27/19 09:00 03/27/19 09:03 Ivite PO 1 each DAILY [facility]OMASA Administration Naloxone HCl 0.2 mg 03/26/19 15:26 Narcan IV Q2M PRN Opioid Reversal Intake and Output 03/26/19 03/27/19 03/27/19 22:59 06:59 14:59 Intake Total 220.498 0 Balance 220.498 0 Intake: Intake, IV Titration 220.498 Amount Diltiazem 125 mg In 54 Sodium Chloride 0.9% 100 ml @ 10 MG/HR 10 mls/hr IV .[id number] [facility] Rx#: [id number] Heparin Sod,Pork in 0.45% 166.498 NaCl 25,000 unit In 0.45 % NaCl 1 250ml.bag @ 7.9 UNITS/KG/HR 10.033 mls/hr IV .Q24H [facility] Rx#: [id number] Oral 0 Other: Voiding Method Toilet Toilet # Voids 2 1 Weight 126.4 kg 03/27/19 05:01 03/26/19 12:12 EKG Interpretations (text) EKG shows atrial flutter with rapid ventricular response Assessment and Plan Plan: Assessment and plan #1 atrial flutter, atypical, with rapid ventricular response, currently in normal sinus rhythm #2 left lower extremity edema and redness, venous duplex study shows a nonocclusive DVT below the knee #3 history of necrotizing fasciitis several years ago Plan TSH level is normal. We will obtain an echocardiogram with Doppler study. Discontinue Cardizem drip. We will also check to see if the patient has coverage for [employer], he has been educated regarding the importance of anticoagulation for stroke prevention. Further recommendations to follow. DNP note has been reviewed, I agree with a documented findings and plan of care. Patient was seen and examined.
[2019-03-27] MEDS: APIXABAN 5 MG TAB PO SCH ×2 (11:24→21:38)
--- NOTE | 2019-03-27 12:40 | CT ---
EXAMINATION TYPE: CT angio chest DATE OF EXAM: 03/27/2019 COMPARISON: NONE HISTORY: arrythmia, DVT. Concern for pulmonary embolus. CT DLP: 1053.8 mGycm. Automated Exposure Control for Dose Reduction was Utilized. CONTRAST: CTA scan of the thorax is performed with IV Contrast, patient injected with 100 mL of Isovue 300, pul monary embolism protocol. MIP Images are created on CT scanner and reviewed. FINDINGS: LUNGS: Punctate calcified benign granuloma in the anterior right upper lobe on image 90. Additional s cattered subcentimeter benign granulomas are seen. The lungs are grossly clear, there is no concernin g parenchymal mass or nodule identified. Minimal bibasilar subsegmental atelectasis. There is no ple ural effusion or pneumothorax seen. The tracheobronchial tree is patent. MEDIASTINUM: There is suboptimal enhancement of the pulmonary artery and its branches, there is no ce ntral pulmonary embolism. There are no greater than 1 cm hilar or mediastinal lymph nodes. No card iomegaly or pericardial effusion is seen. Moderate coronary calcifications. OTHER: Diffuse thickening of the distal esophagus is seen with small hiatal hernia and partial gastre ctomy change. There is mild symmetric retroareolar gynecomastia present. Extensive and advanced degen erative change of the shoulders with osseous remodeling. Moderate multilevel degenerative disc diseas e of the spine. IMPRESSION: 1. Suboptimal enhancement of the main pulmonary artery with no central pulmonary embolus seen. Equivo ken evaluation of the subsegmental branches. 2. Diffuse thickening of the distal esophagus and small hiatal hernia. Esophagitis one of the most co mmon considerations for circumferential mucosal thickening. 3. Moderate coronary calcifications, marker of coronary artery disease.
--- NOTE | 2019-03-27 15:39 | ECHOF ---
Referral Reason:atrial flutter MEASUREMENTS -------- HEIGHT: 180.3 cm WEIGHT: 126.1 kg BP: IVSd: 1.8 cm (0.6 - 1.1) LVIDd: 4.6 cm (3.9 - 5.3) LVPWd: 1.7 cm (0.6 - 1.1) IVSs: 2.3 cm LVIDs: 3.5 cm LVPWs: 1.7 cm RVIDd: 2.4 cm (< 3.3) LAESV Index (A-L): 31.36 ml/m Ao Diam: 3.2 cm (2.0 - 3.7) LA Diam: 4.5 cm (2.7 - 3.8) AV Cusp: 1.8 cm (1.5 - 2.6) EPSS: 1.0 cm MV E Manny: 0.73 m/s MV DecT: 176 ms MV A Manny: 0.72 m/s MV E/A Ratio: 1.01 RAP: 5.00 mmHg RVSP: 20.86 mmHg MV EF SLOPE: 91.49 mm/s (70 - 150) MV EXCURSION: 19.13 mm (> 18.000) TAPSE: 24.73 mm FINDINGS -------- The rhythm appears to be atrial flutter. This was a technically difficult study with suboptimal views. The left ventricular size is normal. There is severe concentric left ventricular hypertrophy. Ove rall left ventricular systolic function is mild-moderately impaired with, an EF between 40 - 45 %. Basal inferoseptal LV wall motion is hypokinetic. Mid inferoseptal LV wall motion is hypokinetic. Mid to basal inferiorlateral is hypokinetic The right ventricle is normal in size. The right ventricular systolic function is normal. LA is midly dilated 29-33ml/m2. The right atrial size is normal. 5.0mg of Lumason was utilized for enhancement of images The aortic valve is trileaflet and appears structurally normal. The mitral valve is normal. The mitral valve leaflets are mildly thickened. Mild mitral regurgita tion is present. The tricuspid valve appears structurally normal. Mild tricuspid regurgitation present. Right vent ricular systolic pressure is normal at < 35 mmHg. There is no pulmonic regurgitation present. The aortic root size is normal. IVC Not well visulized. There is no pericardial effusion. CONCLUSIONS -------- 1. The rhythm appears to be atrial flutter. 2. This was a technically difficult study with suboptimal views. 3. The left ventricular size is normal. 4. There is severe concentric left ventricular hypertrophy. 5. Overall left ventricular systolic function is mild-moderately impaired with, an EF between 40 - 45 %. 6. Basal inferoseptal LV wall motion is hypokinetic. 7. Mid inferoseptal LV wall motion is hypokinetic. 8. Mid to basal inferiorlateral is hypokinetic 9. The right ventricle is normal in size. 10. The right ventricular systolic function is normal. 11. LA is midly dilated 29-33ml/m2. 12. The right atrial size is normal. 13. 5.0mg of Lumason was utilized for enhancement of images 14. The aortic valve is trileaflet and appears structurally normal. 15. The mitral valve is normal. 16. The mitral valve leaflets are mildly thickened. 17. Mild mitral regurgitation is present. 18. The tricuspid valve appears structurally normal. 19. Mild tricuspid regurgitation present. 20. Right ventricular systolic pressure is normal at < 35 mmHg. 21. There is no pulmonic regurgitation present. 22. The aortic root size is normal. 23. IVC Not well visulized. 24. There is no pericardial effusion. FOOD SERVICE ATTENDANT: Milla Ramirez RDCS
--- NOTE | 2019-03-27 17:44 | P.CONS ---
History of Present Illness - Reason for Consult Consult date: 03/27/19 LLE DVT, unprovoked, lymphadenopathy Requesting physician: Cristobal E Sheet - Chief Complaint LLE swelling - History of Present Illness Mr. Bledsoe is a very pleasant 73-year-old male who has a very active lifestyle, continues to work, does quite a bit of traveling riding motorcycles, though none recently. Patient noticed over the last 1-2 weeks increased swelli ng in his left lower extremity. Had some mild swelling before but, this was worse, he was seen by his PCP who recommended that he be evaluated due to swelling and an irregular heart rate. On admission patient was found to be in atrial fibrillation with rapid ventricular rate, he was found to have a left lower extremity DVT, CT of the chest was negative for pulmonary embolism. When asked patient has no family history of blood disorders, clots, cancers, he has no personal history of DVT or cancer. He was diagnosed with necrotizing fasciitis in the left lower extremity 25 years ago that "wiped out lymph system". Patient had lymph node removed from the left groin 15 years ago, this was benign. Patient has had bilateral knee replacements, gastric bypass in 2002, and cholecystectomy. Patient was not able to identify any provoking factors for this blood clot including recent travel, injury, immobility, steroid or hormone usage. Patient states he feels fine otherwise, no complaints, he previously took no medications other than an aspirin and a vitamin, he does know that he is going to have medications for arrhythmia and blood clot. 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 History of Any Multi-Drug Resistant Organisms: Other MDRO Year Discovered:: 1995 MDRO Source:: l leg Past Surgical History: Bariatric Surgery, Coronary Bypass/CABG, Joint Replacement, Orthopedic Surgery Additional Past Surgical History / Comment(s): Gastric bypass, bilateral total knee arhtroplasties, R clavicle fracture with screw which was removed when he had R shoulder dislocation/surgery, L groin lymph node removed d/t lymphadenopathy then surgery for L groin hematoma, colonoscopy. Past Anesthesia/Blood Transfusion Reactions: No Reported Reaction Past Psychological History: No Psychological Hx Reported Smoking Status: Former smoker Past Alcohol Use History: Unable to Obtain Past Drug Use History: None Reported - Past Family History Mother Family Medical History: Diabetes Mellitus Father Family Medical History: Diabetes Mellitus Medications and Allergies Home Medications Medication Instructions Recorded Confirmed Type Multivitamin [Men's Multi-Vitamin] 1 tab PO DAILY 12/26/13 03/26/19 History Aspirin EC [Ecotrin Low Dose] 81 mg PO DAILY 03/26/19 03/26/19 History Vit C/E/Zn/Coppr/Lutein/Zeaxan 1 cap PO DAILY 03/26/19 03/26/19 History [Preservision Areds 2 Softgel] Allergies Allergy/AdvReac Type Severity Reaction Status Date / Time No Known Allergies Allergy Verified 03/26/19 14:09 Physical Exam Vitals: Vital Signs Temp Pulse Resp BP Pulse Ox 03/27/19 11:29 97.6 F 82 18 127/86 98 03/27/19 08:00 98.1 F 77 18 145/92 98 03/27/19 04:00 97.7 F 72 16 131/63 99 03/26/19 23:15 98.0 F 63 16 149/82 98 03/26/19 20:00 97.9 F 76 18 126/69 99 Intake and Output 03/27/19 03/27/19 03/27/19 06:59 14:59 22:59 Intake Total 220.498 240 Balance 220.498 240 Intake: Intake, IV Titration 220.498 Amount Diltiazem 125 mg In 54 Sodium Chloride 0.9% 100 ml @ 10 MG/HR 10 mls/hr IV .[id number] [facility] Rx#: [id number] Heparin Sod,Pork in 0.45% 166.498 NaCl 25,000 unit In 0.45 % NaCl 1 250ml.bag @ 7.9 UNITS/KG/HR 10.033 mls/hr IV .Q24H [facility] Rx#: [id number] Oral 240 Other: Voiding Method Toilet # Voids 2 1 Weight 126.4 kg - Constitutional General appearance: cooperative, no acute distress, obese - EENT Eyes: anicteric sclerae, EOMI ENT: hearing grossly normal, normal oropharynx - Neck left groin palpate rubbery scar tissue Neck: no lymphadenopathy - Respiratory Respiratory: bilateral: CTA - Cardiovascular Rhythm: regular Heart sounds: normal: S1, S2 Abnormal Heart Sounds: no systolic murmur, no diastolic murmur, no rub, no S3 Gallop, no S4 Gallop, no click, no other leg Peripheral Edema: right: None, bilateral: 2+ - Gastrointestinal General gastrointestinal: no absent bowel sounds, no decreased bowel sounds, no distended, no hepatomegaly, no hyperactive bowel sounds, normal bowel sounds, no organomegaly, no rigid, no scaphoid, soft, no splenomegaly, no tenderness, no umbilical hernia, no ventral hernia - Integumentary LLE posterior calf redness, scars on the lateral calf - Neurologic Neurologic: CNII-XII intact - Musculoskeletal Bilateral knee scars from replacements Musculoskeletal: strength equal bilaterally - Psychiatric Psychiatric: A&O x's 3, appropriate affect, intact judgment & insight Results CBC & Chem 7: 03/27/19 05:01 03/26/19 12:12 Labs: Abnormal Lab Results - Last 24 Hours (Table) 03/26/19 03/27/19 03/27/19 Range/Units 22:13 05:01 05:01 Hgb 12.3 L (13.0-17.5) gm/dL Hct 37.8 L (39.0-53.0) % APTT 32.2 H 40.9 H (22.0-30.0) sec CT scan - chest: report reviewed Venous US: report reviewed Assessment and Plan (1) DVT (deep venous thrombosis) Narrative/Plan: Unprovoked DVT, CT of the chest ordered, no pulmonary embolism. Recommendation at this time is for patient to be on a minimum 6 months anticoagulation, recommend Doppler to reevaluate prior to discontinuing anticoagulation. Patient is current on prostate cancer screening but, he is not sure of the last time he had colonoscopy, he is also not had an EGD since the 70s (this was done due to gastrointestinal complaints, ended up being he needed his gallbladder removed). Would recommend following up on these screening exams in about 3 months time as patient has a new blood clot and holding anticoagulation is not recommended at this time. Patient verbalized understanding. Will review the case with Dr. Bains to see if there are any further examinations he would like done. Patient was educated on bleeding precautions, ensuring that he has medical alert bracelet and to consider compression stockings that are tolerable to wear (he still does not wear any of his scripted compression stockings as they cause pain and are difficult to get on) Current Visit: Yes Status: Acute Priority: High Code(s): I82.409 - ACUTE EMBOLISM AND THOMBOS UNSP DEEP VN UNSP LOWER EXTREMITY SNOMED Code(s): 273289654
[2019-03-28 06:19] LABS: Basophils # (A) 0.1 k/uL (0-0.2); Basophils % (A) 1 %; Eosinophils # (A) 0.4 k/uL (0-0.7); Eosinophils % (A) 8 %; HCT 36.8 % (39.0-53.0); HGB 11.8 gm/dL (13.0-17.5); Lymphocytes # (A) 1.1 k/uL (1.0-4.8); Lymphocytes % (A) 23 %; MCH 27.1 pg (25.0-35.0); MCHC 32.1 g/dL (31.0-37.0); MCV 84.3 fL (80.0-100.0); Mean Platelet Volume 7.4; Monocytes # (A) 0.4 k/uL (0-1.0); Monocytes % (A) 9 %; Neutrophils # (A) 2.8 k/uL (1.3-7.7); Neutrophils % (A) 57 %; Platelet Count 226 k/uL (150-450); RBC 4.37 m/uL (4.30-5.90); RDW 14.4 % (11.5-15.5); WBC 4.8 k/uL (3.8-10.6)
[2019-03-28] MEDS: APIXABAN 5 MG TAB PO SCH ×2 (09:01→21:28)
[2019-03-28] MEDS: MULTIVITAMINS, THERA 1 EACH TAB PO SCH (09:01)
[2019-03-28] MEDS: VIT A,C & E-LUTEIN-MINERALS 1 EACH TAB PO SCH (09:01)
[2019-03-28] MEDS: SODIUM CHLORIDE 0.9% 1,000 ML IV SCH ×2 (09:04→17:17)
--- NOTE | 2019-03-28 09:55 | P.PN ---
Subjective Progress Note Date: 03/28/19 Principal diagnosis: LLE swelling In f/u pt has no c/o, the tightness and tingling in his LLE is better, no bleeding to report. No other c/o Objective - Vital Signs Vital signs: Vital Signs Temp 98 F 03/28/19 08:00 Pulse 77 03/28/19 08:00 Resp 18 03/28/19 08:00 BP 154/89 03/28/19 08:00 Pulse Ox 97 03/28/19 08:00 Intake & Output 03/27/19 03/28/19 03/28/19 18:59 06:59 18:59 Intake Total 240 480 Balance 240 480 Weight 126.6 kg Intake: Oral 240 480 Other: Voiding Method Toilet # Voids 1 2 2 - Constitutional General appearance: Present: cooperative, no acute distress, obese - EENT Eyes: Present: anicteric sclerae, EOMI ENT: Present: hearing grossly normal - Neck Details: lt groin 1-1.5 cm node palpated, does not feel pathologic Neck: Present: lymphadenopathy - Respiratory Details: respirations are even and unlabored - Peripheral edema leg Peripheral Edema: right: None, left: 1+ - Gastrointestinal General gastrointestinal: Present: soft - Genitourinary Male genitourinary: left inguinal lymphadenopathy - Integumentary Integumentary Comment(s): LLE lateral calf bronzing of the skin - Neurologic Neurologic: Present: CNII-XII intact - Musculoskeletal Musculoskeletal: Present: strength equal bilaterally - Psychiatric Psychiatric: Present: A&O x's 3, appropriate affect, intact judgment & insight - Labs CBC & Chem 7: 03/28/19 05:04 03/26/19 12:12 Labs: Abnormal Lab Results - Last 24 Hours (Table) 03/28/19 Range/Units 05:04 Hgb 11.8 L (13.0-17.5) gm/dL Hct 36.8 L (39.0-53.0) % Assessment and Plan (1) DVT (deep venous thrombosis) Narrative/Plan: Possible calf vein DVT reported, Dr. Bains has requested repeat doppler to see if the diagnosis of DVT can be more definitive. If definitely/highly suspicious for clot 3 months anticoagulation was recommended but, since pt is going to be travelling for about 5 months (driving, motorcycle) it was felt that staying on anticoagulation until back home was not unreasonable. Pt verbalized understanding. Provoking risk factor for DVT is chronic lymphedema from Hx of necrotizing fascitis. Patient previously was educated on bleeding precautions, ensuring that he has medical alert bracelet and to consider compression stockings Current Visit: Yes Status: Acute Priority: High Code(s): I82.409 - ACUTE EMBOLISM AND THOMBOS UNSP DEEP VN UNSP LOWER EXTREMITY SNOMED Code(s): 053641087 (2) Lymphadenopathy Narrative/Plan: Lt groin, Dr. Bains has requested dedicated US of the left groin for complete evaluation. Current Visit: Yes Status: Acute Priority: Medium Code(s): R59.1 - GENERALIZED ENLARGED LYMPH NODES SNOMED Code(s): 07650757 Plan: Doctor attests: I performed a history and physical examination of this patient, developed impression and plan of care, discussed with dictator. I agree with dictators note, documented as a scribe.
[2019-03-28 10:39] LABS: Cholesterol 182 mg/dL (<200); HDL Cholesterol 35 mg/dL (40-60); LDL Cholesterol,Calculated 110 mg/dL (0-99); Triglycerides 183 mg/dL (<150)
--- NOTE | 2019-03-28 11:19 | US ---
EXAMINATION TYPE: US groin LT DATE OF EXAM: 03/28/2019 COMPARISON: Prior ultrasound 12/26/2013 CLINICAL HISTORY: Lt groin node evaluation. reassess enlarged lymph node, h/o enlarged node removal f rom left groin 30 years ago, swelling in leg ever since, recent study showed enlarged node, 5.0cm, an d doctor ordered second look since he felt smaller node on palpation Left groin enlarged node = 4.8 x 1.8 x 1.8cm, fatty hilum seen with central vascularity noted. 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
--- NOTE | 2019-03-28 11:21 | US ---
EXAMINATION TYPE: US venous doppler duplex LE LT DATE OF EXAM: 03/28/2019 10:29 AM COMPARISON: Prior ultrasound 03/26/2019 CLINICAL HISTORY: Probable/suspicious for DVT . reassess possible calf vein thrombosis on patient wit h chronic left leg swelling due to removal of enlarged left groin node in SIDE PERFORMED: Left TECHNIQUE: The lower extremity deep venous system is examined utilizing real time linear array sonog isaiah with graded compression, doppler sonography and color-flow sonography. VESSELS IMAGED: External Iliac Vein (EIV) Common Femoral Vein Deep Femoral Vein Greater Saphenous Vein * Femoral Vein Popliteal Vein Small Saphenous Vein * Proximal Calf Veins (* superficial vessels) Left Leg: On today's assessment, no obvious signs of DVT seen throughout leg, additional imaging don e at prx calf v's down through mid calf vein level and including PTV's There is normal flow, compressibility, vascular waveforms. IMPRESSION: No evident deep venous arthrosis in the visualized veins of the left lower extremity. Fol low-up as indicated.
[2019-03-28 12:06] LABS: Glucose,Whole Blood 96 mg/dL (75-99)
--- NOTE | 2019-03-28 14:23 | P.PN ---
Subjective Progress Note Date: 03/28/19 This is a pleasant 73-year-old gentleman with no prior documented history of hypertension, no diabetes, no hyperlipidemia, no prior CVA, no history of congestive heart failure, he is a nonsmoker, rarely drinks alcohol. He does have a history of necrotizing fasciitis several years ago the left lower extremity. Patient has noticed recently some swelling in that left leg, and for this reason went to see his primary care doctor he checked his heart rate and blood pressure while in the office, noted his heart rate to be significantly elevated and the patient was referred to come to the hospital for admission. He also states that 15 years ago or so he may have been told to have an irregular heartbeat, he even more monitor at that time, but was not placed on any blood thinners. EKG on presentation here showed atrial flutter with rapid ventricular response, nonspecific ST-T wave changes. Venous duplex study was also performed which revealed a nonocclusive DVT below the knee on the left leg. Adenopathy of the left inguinal region. Chest x-ray did not reveal any acute cardiopulmonary process. Blood pressure 144/90 with a heart rate in the 70s, 98% on room air. White blood cell count 6.7, hemoglobin 12.3, platelet count 259. D-dimer 0.3. Sodium 140, potassium 4.8, BUN 9 and creatinine 0.9. Troponin 0.034. TSH 0.981. 03/28/2019 Patient was seen and examined this morning, currently in a normal sinus rhythm. Echocardiogram with Doppler study was performed which revealed an ejection fraction of 40-45%, basal inferior septal and mid inferior septal hypokinesia noted. Patient overall feels well today. I did have a lengthy discussion with the patient regarding the need for cardiac catheterization, based on this fact that his LV function is reduced. The reduction in LV function could be secondary to his rapid atrial flutter on admission here, however we need to rule out any underlying coronary artery patient from our perspective may be able to be discharged home today, we will schedule an outpatient cardiac catheterization within the next 7-10 days. Blood pressure 140/70 with a heart rate in the 70s, 96% on room air. Objective - Vital Signs Vital signs: Vital Signs Temp 98 F 03/28/19 08:00 Pulse 77 03/28/19 08:00 Resp 18 03/28/19 08:00 BP 154/89 03/28/19 08:00 Pulse Ox 97 03/28/19 08:00 Intake & Output 03/27/19 03/28/19 03/28/19 18:59 06:59 18:59 Intake Total 240 480 Balance 240 480 Weight 126.6 kg Intake: Oral 240 480 Other: Voiding Method Toilet # Voids 1 2 2 - Exam PHYSICAL EXAMINATION: GENERAL: 73-year-old gentleman in no acute distress at the time of my examination HEENT: Head is atraumatic, normocephalic. Pupils equal, round. Sclera anicteric. Conjunctiva are clear. Mucous membranes of the mouth are moist. Neck is supple. There is no elevated jugular venous pressure. No carotid bruit is heard. HEART EXAMINATION: S1 and S2 normal CHEST EXAMINATION: Lungs are clear to auscultation and precussion. No chest wall tenderness is noted on palpation or with deep breathing. ABDOMEN: Soft, nontender. Bowel sounds are heard. No organomegaly noted. EXTREMITIES: 2+ peripheral pulses with 1-2+ edema of the left lower extremity with evidence of erythema and 2 open ulcerated areas. NEUROLOGIC patient is awake, alert and oriented 3. . - Labs CBC & Chem 7: 03/28/19 05:04 03/26/19 12:12 Labs: Abnormal Lab Results - Last 24 Hours (Table) 03/28/19 03/28/19 Range/Units 05:04 05:04 Hgb 11.8 L (13.0-17.5) gm/dL Hct 36.8 L (39.0-53.0) % Triglycerides 183 H (<150) mg/dL LDL Cholesterol, Calc 110 H (0-99) mg/dL HDL Cholesterol 35 L (40-60) mg/dL Assessment and Plan Plan: Assessment and plan #1 atrial flutter, atypical, with rapid ventricular response, currently in normal sinus rhythm #2 left lower extremity edema and redness, venous duplex study shows a nonocclusive DVT below the knee #3 history of necrotizing fasciitis several years ago Plan TSH level is normal. Echocardiogram with Doppler study revealed an ejection fraction of 40-45%. We will add a small dose of beta anais to the patient's medication regime. He may be able to be discharged home today from our perspective, outpatient cardiac catheterization will be scheduled within the next 7-10 days. Follow-up appointment with Dr. Ortega. DNP note has been reviewed, I agree with a documented findings and plan of care. Patient was seen and examined.
[2019-03-28] MEDS: METOPROLOL TARTRATE 25 MG TAB PO SCH ×2 (17:17→21:29)
--- NOTE | 2019-03-28 19:05 | P.PN ---
Progress Note - Text Progress Note Date: 03/28/19 Interval history: This very pleasant 73-year-old patient, of Dr. Ashlee Shukla was sent in from our office for elevated heart rate. Found to be in atrial flutter with a rapid ventricular rate. Reported back to sinus rhythm. Patient also had some discomfort in the left. Initial Doppler ultrasound showed nonocclusive DVT. Repeat ultrasound was negative for DVT. Patient has left groin adenopathy. Today-patient has remained in sinus rhythm. Breathing is stable. No palpitation. No calf pain. Earlier senior wind energy consultant Dr. Dwyer for evaluation of left groin lymphadenopathy. Review of systems: Was done for constitutional, cardiovascular, GI, pulmonary. relevant finding as above Active Medications Apixaban (Eliquis) 5 mg PO BID [facility] Last Admin: 03/28/19 09:01 Dose: 5 mg Documented by: Sodium Chloride (Saline 0.9%) 1,000 mls @ 20 mls/hr IV .Q24H [facility] Last Admin: 03/28/19 17:17 Dose: Not Given Documented by: Metoprolol Tartrate (Lopressor) 25 mg PO BID [facility] Last Admin: 03/28/19 17:17 Dose: Not Given Documented by: Multivitamins (Theragran) 1 each PO DAILY [facility] Last Admin: 03/28/19 09:01 Dose: 1 each Documented by: Multivitamins/Minerals (Ivite) 1 each PO DAILY [facility] Last Admin: 03/28/19 09:01 Dose: 1 each Documented by: Naloxone HCl (Narcan) 0.2 mg IV Q2M PRN PRN Reason: Opioid Reversal On examination: VITAL SIGNS: 98.4, 74, 18, 154/82, 98% room air GENERAL APPEARANCE: Sitting up in a chair, comfortable. HEENT: Normal external appearance of nose and ear. Oral cavity normal EYES: Pupils equal. Conjunctiva normal. NECK: JVD not raised. Mass not palpable. RESPIRATORY: Respiratory effort normal. Lungs clear to auscultation. CARDIOVASCULAR: First and second sounds normal. No edema. ABDOMEN: Soft. Liver and spleen not palpable. No tenderness. No mass palpable. PSYCHIATRY: Alert and oriented x3. Mood and affect normal. INVESTIGATIONS, reviewed in the clinical context: White count 4.8 hemoglobin 11.8 platelets 226 Doppler ultrasound-negative for DVT Chest CTA-negative for PE 2-D echocardiogram-EF 40-45%, with some wall motion abnormality EKG tracing personally reviewed by me shows atrial flutter with a rapid ventricular rate from 03/26/2019 Left groin ultrasound-lymph nodes enlarged, 4.8 cm, 1.8 cm common 0.8 cm. Assessment: -Paroxysmal atrial flutter with a rapid ventricular rate, now in sinus rhythm. Started on eliquis -Chronic congestive heart failure from systolic dysfunction EF 40-45%, with wall motion abnormality, for outpatient cardiac catheterization by cardiology -Hypertensive heart disease -Essential hypertension -Primary osteoarthritis -History of gastric bypass surgery Plan: Dr. Dwyer was consulted from general surgery regarding the left groin lymph node. Patient will have outpatient cardiac catheterization. He has been started on eliquis. Hopefully discharge tomorrow. After being seen by surgery.
[2019-03-29 06:31] LABS: Basophils # (A) 0.1 k/uL (0-0.2); Basophils % (A) 1 %; Eosinophils # (A) 0.4 k/uL (0-0.7); Eosinophils % (A) 7 %; HCT 39.4 % (39.0-53.0); HGB 12.3 gm/dL (13.0-17.5); Lymphocytes # (A) 1.3 k/uL (1.0-4.8); Lymphocytes % (A) 21 %; MCH 26.3 pg (25.0-35.0); MCHC 31.2 g/dL (31.0-37.0); MCV 84.4 fL (80.0-100.0); Mean Platelet Volume 7.3; Monocytes # (A) 0.5 k/uL (0-1.0); Monocytes % (A) 8 %; Neutrophils # (A) 3.5 k/uL (1.3-7.7); Neutrophils % (A) 60 %; Platelet Count 244 k/uL (150-450); RBC 4.67 m/uL (4.30-5.90); RDW 14.3 % (11.5-15.5); WBC 5.9 k/uL (3.8-10.6)
[2019-03-29 09:07] LABS: African American GFR (CKD) >90 (>60 ml/min/1.73 sqM); Anion Gap 7 mmol/L; Blood Urea Nitrogen 12 mg/dL (9-20); Carbon Dioxide 27 mmol/L (22-30); Chloride 104 mmol/L (98-107); Glucose 87 mg/dL (74-99); Magnesium 2.1 mg/dL (1.6-2.3); Potassium 4.3 mmol/L (3.5-5.1); Sodium 138 mmol/L (137-145)
[2019-03-29] MEDS: APIXABAN 5 MG TAB PO SCH (09:08)
[2019-03-29] MEDS: METOPROLOL TARTRATE 25 MG TAB PO SCH (09:08)
[2019-03-29] MEDS: MULTIVITAMINS, THERA 1 EACH TAB PO SCH (09:08)
[2019-03-29] MEDS: VIT A,C & E-LUTEIN-MINERALS 1 EACH TAB PO SCH (09:09)
[2019-03-29] MEDS ORDERED: IOPAMIDOL CONTRAST (ORAL USE) VIAL PO PRN (09:56)
[2019-03-29 11:09] LABS: ALT 26 U/L (21-72); AST 25 U/L (17-59); African American GFR (CKD) >90 (>60 ml/min/1.73 sqM); Albumin 4.1 g/dL (3.5-5.0); Alkaline Phosphatase 52 U/L (38-126); Anion Gap 8 mmol/L; Blood Urea Nitrogen 11 mg/dL (9-20); Calcium 9.5 mg/dL (8.4-10.2); Carbon Dioxide 27 mmol/L (22-30); Chloride 104 mmol/L (98-107); Glucose 83 mg/dL (74-99); Magnesium 2.2 mg/dL (1.6-2.3); Phosphorus 3.8 mg/dL (2.5-4.5); Potassium 4.6 mmol/L (3.5-5.1); Sodium 139 mmol/L (137-145); Total Bilirubin 0.6 mg/dL (0.2-1.3); Total Protein 6.9 g/dL (6.3-8.2)
--- NOTE | 2019-03-29 11:21 | P.PN ---
Subjective Progress Note Date: 03/29/19 Principal diagnosis: LLE swelling, lt inguinal adenopathy In f/u today pt feels well, LLE swelling is stable/improved, he is ambulatory, tolerating eliquis, no bleeding to report, no other physical c/o. Objective - Vital Signs Vital signs: Vital Signs Temp 98.2 F 03/29/19 08:03 Pulse 88 03/29/19 08:03 Resp 16 03/29/19 08:03 BP 140/67 03/29/19 08:03 Pulse Ox 96 03/29/19 08:03 Intake & Output 03/28/19 03/29/19 03/29/19 18:59 06:59 18:59 Intake Total 720 480 Output Total 200 Balance 520 480 Weight 124.1 kg Intake: Oral 720 480 Output: Urine 200 Other: Voiding Method Toilet Toilet # Voids 1 1 - Constitutional General appearance: Present: cooperative, no acute distress, obese - EENT Eyes: Present: anicteric sclerae, EOMI ENT: Present: hearing grossly normal - Respiratory Details: respirations even and unlabored - Peripheral edema leg Peripheral Edema: right: Trace, left: 1+ - Gastrointestinal General gastrointestinal: Present: soft - Integumentary Integumentary Comment(s): LLE skin changes c/w venous insufficiency - Neurologic Neurologic: Present: CNII-XII intact - Musculoskeletal Musculoskeletal: Present: strength equal bilaterally - Psychiatric Psychiatric: Present: A&O x's 3, appropriate affect, intact judgment & insight - Labs CBC & Chem 7: 03/29/19 05:30 03/29/19 10:40 Labs: Abnormal Lab Results - Last 24 Hours (Table) 03/29/19 Range/Units 05:30 Hgb 12.3 L (13.0-17.5) gm/dL - Imaging and Cardiology Venous US: report reviewed Assessment and Plan (1) DVT (deep venous thrombosis) Narrative/Plan: Repeat doppler report reviewed. No DVT on the LLE. Reviewed with pt that he has provoking risk factor for DVT-chronic lymphedema from Hx of necrotizing fascitis. Pt educated on compression stockings to minimize swelling, russell mmended lymphedema clinic f/u. Case discussed with Cardiology DNP, pt needs to be on anticoagulation for arrhythmia so, bleeding precautions reinforced. Current Visit: Yes Status: Acute Priority: High Code(s): I82.409 - ACUTE EMBOLISM AND THOMBOS UNSP DEEP VN UNSP LOWER EXTREMITY SNOMED Code(s): 864724937 (2) Lymphadenopathy Narrative/Plan: Lt groin, dedicated US of the left groin showing enlarged LN, pending surgical evaluation for recommendations. Current Visit: Yes Status: Acute Priority: Medium Code(s): R59.1 - GENERALIZED ENLARGED LYMPH NODES SNOMED Code(s): 76725674 Plan: Doctor attests: I performed a history and physical examination of this patient, developed impression and plan of care, discussed with dictator. I agree with dictators note, documented as a scribe.
[2019-03-29 11:44] VITALS: BP 145/97; PULSE 63; RESP 18; TEMP 97.9
--- NOTE | 2019-03-29 13:21 | CT ---
EXAMINATION TYPE: CT abdomen pelvis w con DATE OF EXAM: 03/29/2019 COMPARISON: NONE HISTORY: 73-year-old male upper Abdominal discomfort TECHNIQUE: Contiguous axial scanning of the abdomen and pelvis following administration of 100 ml Iso livier 300 IV contrast. Delayed images through the kidneys and coronal/sagittal reconstructions perform ed. CT DLP: 2362.1 mGycm Automated exposure control for dose reduction was used. FINDINGS: Heart normal size without pericardial effusion. Tiny 2 mm pulmonary nodule partially visualized major right base. No pleural effusion. Small hiatal hernia. Post surgical changes of Chuy-en-Y gastric bypass. No focal liver lesion or biliary ductal dilatation. Portal venous system is patent. Gallbladder surgically absent. Adrenal glands, kidneys, spleen, and pancreas appear within normal limits. Moderate vascular calcifications infrarenal abdominal aorta and iliac arteries. No dilated small bowel, free fluid, or free air. A few scattered nonenlarged mesenteric lymph nodes measure up to 6 mm. Redundant sigmoid colon. No pericolonic inflammatory change. No secondary findings of acute appendicitis in the right lower quadrant. Appendix not well seen. Mild circumferential bladder wall thickening. Prostate gland enlargement 5.4 cm wide. There is scarri ng in the left inguinal region with some asymmetrically prominent left inguinal lymph nodes measuring up to 1.5 cm. Bones: Degenerative changes at the hips and SI joints. Multilevel degenerative changes throughout the lumbar spine. Grade 1 retrolisthesis at L1-L2. IMPRESSION: 1. POSITIVE FOR BLADDER WALL THICKENING COULD REFLECT CHRONIC BLADDER WALL HYPERTROPHY OR CYSTITIS. C LINICALLY CORRELATE. 2. SCARRING ALONG THE LEFT INGUINAL REGION WITH SOME ASYMMETRICALLY BORDERLINE ENLARGED 1.5 CM. CORRE LATE WITH PHYSICAL EXAM FINDINGS. LYMPH NODES MAY BE REACTIVE OR POSTINFLAMMATORY. IF ANY GROWTH IS N OTED, ULTRASOUND CAN BE USED TO REASSESS AND CONSIDER TISSUE SAMPLING. 3. STATUS POST CHUY-EN-Y GASTRIC BYPASS WITH A SMALL HIATAL HERNIA.
--- NOTE | 2019-03-29 13:59 | P.GSCN ---
<Melissa Solomon A - Last Filed: 03/29/19 13:55> History of Present Illness Consult date: 03/29/19 Reason for Consult: Left groin lymphadenopathy Requesting physician: Ramandeep Wray History of present illness: CHIEF COMPLAINT: Left groin lymphadenopathy HISTORY OF PRESENT ILLNESS: 73-year-old male with has a history of necrotizing fasciitis to his left leg in 1995. Patient states since that time he has dealt with swelling of his left leg and enlarged lymph node of his left groin. He underwent lymph node biopsy in March [address] Arcos. Pathology was negative at that time. He states he was following with a vascular surgeon who has since retired. Patient also reports a history of gastric bypass surgery in 2002. He states he has not followed with a bariatric surgeon in many years. P ana does report occasional difficulty swallowing and feeling as though food gets stuck. PAST MEDICAL HISTORY: See list. PAST SURGICAL HISTORY: See list. MEDICATIONS: See list. ALLERGIES: See list. SOCIAL HISTORY: No illicit drug use. REVIEW OF SYSTEMS: CONSTITUTIONAL: Denies fever or chills. HEENT: Denies blurred vision, vision changes, or eye pain. Denies hemoptysis ENDOCRINE: Denies heat or cold intolerance. CARDIOVASCULAR: Denies chest pain or pressure. RESPIRATORY: No shortness of breath. GASTROINTESTINAL: Denies abdominal pain. Denies nausea or vomiting. NEURO: Denies history of seizures. PSYCH: No depression or suicidal ideation HEMATOLOGIC: Denies bleeding disorders. LYMPHATIC: Reports swelling of left lower extremity and enlarged lymph nodes of left groin. GENITOURINARY: Denies any blood in urine or increased urinary frequency. MUSCULOSKELETAL: Denies myalgias. Denies joint swelling. Denies decreased range of motion beyond patients baseline. SKIN: Denies pruitis. Denies rash. PHYSICAL EXAM: VITAL SIGNS: Reviewed GENERAL: Well-developed in no acute distress. HEENT: No sclera icterus. Extraocular movements grossly intact. Moist buccal mucosa. Head is atraumatic, normocephalic. Hears conversational speech. No nasal drainage. NECK: Supple without lymphadenopathy. CHEST: Non-labored respirations and equal bilateral excursions. CARDIOVASCULAR: Regular rate with regular rhythm. Palpable 2+ radial pulses. ABDOMEN: Soft. Nondistended. Nontender. EXTREMITIES: Left groin lymphadenopathy with 1+ edema to left lower extremity MUSCULOSKELETAL: No clubbing or cyanosis NEUROLOGIC: No focal or lateralizing signs. Cranial nerves II through XII grossly intact. PSYCH: Appropriate affect. Alert and oriented to person, place and time. SKIN: Well perfused. Good skin turgor. LABORATORY DATA: Most recent laboratory data reveals white count 5.9. Hemoglobin 12.3. Platelet count 244. Sodium 139. Potassium 4.6. BUN 11. Creatinine 0.85. IMAGIN. Venous Doppler: Negative for DVT of left lower extremity. 2. Groin ultrasound: Chronically enlarged left groin lymph node shows fatty hilus has a prior exam dated 2013 ASSESSMENT: 1. Chronic left groin lymphadenopathy 2. Chronic lymphedema of left lower extremity 3. History of necrotizing fasciitis 4. History of gastric bypass 5. Dysphagia PLAN: 1. No surgical intervention recommended for left groin lymphadenopathy 2. Dr. John would like vascular surgery consulted for evaluation and recommendations of chronic left lower extremity lymphedema 3. Patient with history of gastric bypass and does not follow with bariatric surgeon. Patient agreeable to follow with Dr. John outpatient regarding his bariatric surgery. Patient complains of occasional dysphagia. Will consult bariatric dietitian. Will obtain CT abdomen and pelvis with IV and oral contrast for baseline records. Will obtain full set of bariatric labs. Patient may follow up in the bariatric center with Dr. John. Nurse practitioner note has been reviewed by physician. Signing provider agrees with the documented findings, assessment, and plan of care. 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 History of Any Multi-Drug Resistant Organisms: Other MDRO Year Discovered:: 1995 MDRO Source:: l leg Past Surgical History: Bariatric Surgery, Joint Replacement, Orthopedic Surgery Additional Past Surgical History / Comment(s): Gastric bypass, bilateral total knee arhtroplasties, R clavicle fracture with screw which was removed when he had R shoulder dislocation/surgery, L groin lymph node removed d/t lymphadenopathy then surgery for L groin hematoma, colonoscopy. Past Anesthesia/Blood Transfusion Reactions: No Reported Reaction Past Psychological History: No Psychological Hx Reported Additional Psychological History / Comment(s): Pt resides alone. He is independent. He enjoys motorcycle riding [place] to [facility]. Smoking Status: Former smoker Past Alcohol Use History: Unable to Obtain Additional Past Alcohol Use History / Comment(s): QUIT SMOKING IN 2002 STARTED AT AGE 14/ SMOKED 1PPD Past Drug Use History: None Reported - Past Family History Mother Family Medical History: Diabetes Mellitus Father Family Medical History: Diabetes Mellitus Medications and Allergies Home Medications Medication Instructions Recorded Confirmed Type Multivitamin [Men's Multi-Vitamin] 1 tab PO DAILY 12/26/13 03/26/19 History Vit C/E/Zn/Coppr/Lutein/Zeaxan 1 cap PO DAILY 03/26/19 03/26/19 History [Preservision Areds 2 Softgel] Apixaban [Eliquis] 5 mg PO BID #60 tab 03/29/19 Rx Metoprolol Tartrate [Lopressor] 25 mg PO BID #60 tab 03/29/19 Rx Allergies Allergy/AdvReac Type Severity Reaction Status Date / Time No Known Allergies Allergy Verified 03/26/19 14:09 Surgical - Exam Vital Signs Temp Pulse Resp BP Pulse Ox 97.8 F 150 H 19 145/79 98 03/26/19 11:58 03/26/19 11:58 03/26/19 11:58 03/26/19 11:58 03/26/19 11:58 Results - Labs 03/29/19 05:30 03/29/19 10:40 Abnormal Lab Results - Last 24 Hours (Table) 03/29/19 Range/Units 05:30 Hgb 12.3 L (13.0-17.5) gm/dL Diabetes panel 03/29/19 03/29/19 Range/Units 05:30 10:40 Sodium 138 139 (137-145) mmol/L Potassium 4.3 4.6 (3.5-5.1) mmol/L Chloride 104 104 (98-107) mmol/L Carbon Dioxide 27 27 (22-30) mmol/L BUN 12 11 (9-20) mg/dL Creatinine 0.85 0.85 (0.66-1.25) mg/dL Glucose 87 83 (74-99) mg/dL Calcium 9.0 9.5 (8.4-10.2) mg/dL AST 25 (17-59) U/L ALT 26 (21-72) U/L Alkaline Phosphatase 52 (38-126) U/L Total Protein 6.9 (6.3-8.2) g/dL Albumin 4.1 (3.5-5.0) g/dL Calcium panel 03/29/19 03/29/19 Range/Units 05:30 10:40 Calcium 9.0 9.5 (8.4-10.2) mg/dL Phosphorus 3.8 (2.5-4.5) mg/dL Albumin 4.1 (3.5-5.0) g/dL Pituitary panel 03/29/19 03/29/19 Range/Units 05:30 10:40 Sodium 138 139 (137-145) mmol/L Potassium 4.3 4.6 (3.5-5.1) mmol/L Chloride 104 104 (98-107) mmol/L Carbon Dioxide 27 27 (22-30) mmol/L BUN 12 11 (9-20) mg/dL Creatinine 0.85 0.85 (0.66-1.25) mg/dL Glucose 87 83 (74-99) mg/dL Calcium 9.0 9.5 (8.4-10.2) mg/dL Adrenal panel 03/29/19 03/29/19 Range/Units 05:30 10:40 Sodium 138 139 (137-145) mmol/L Potassium 4.3 4.6 (3.5-5.1) mmol/L Chloride 104 104 (98-107) mmol/L Carbon Dioxide 27 27 (22-30) mmol/L BUN 12 11 (9-20) mg/dL Creatinine 0.85 0.85 (0.66-1.25) mg/dL Glucose 87 83 (74-99) mg/dL Calcium 9.0 9.5 (8.4-10.2) mg/dL Total Bilirubin 0.6 (0.2-1.3) mg/dL AST 25 (17-59) U/L ALT 26 (21-72) U/L Alkaline Phosphatase 52 (38-126) U/L Total Protein 6.9 (6.3-8.2) g/dL Albumin 4.1 (3.5-5.0) g/dL <Annabella John N - Last Filed: 03/29/19 19:00> History of Present Illness History of present illness: Patient seen and evaluated. Previous medical records including operative report from 2014 reviewed in detail as well as old pathology report. Patient does confirm past history of necrotizing fasciitis over 20+ years ago as a cause of chronic lymphedema of the left lower leg. Most recent lymph node biopsy of the bilateral groin also confirms benign lymphadenopathy. Patient has not followed up with vascular surgeon regarding any new treatments for lymphedema of the leg. Otherwise, patient confirms prior history of super morbid obesity, highes weight at least 465 pounds. He has maintained over 150+ pound weight loss. He does complain of dysphagia as well as epigastric abdominal pain. Recommend CT of the abdomen and pelvis as a result. Also recommend for bariatric labs for malnutrition. Recommend consultation to vascular surgery regarding left lower extremity lymphedema. No surgical intervention of lymph node resection of the leg advised as caries highest risk of lymphangitis for previously biopsied area. Recommend follow-up in the office as he has history of gastric bypass without any recent follow-up in over 10+ years. Surgical - Exam Vital Signs Temp Pulse Resp BP Pulse Ox 97.8 F 150 H 19 145/79 98 03/26/19 11:58 03/26/19 11:58 03/26/19 11:58 03/26/19 11:58 03/26/19 11:58 Results - Labs 03/29/19 05:30 03/29/19 10:40 Abnormal Lab Results - Last 24 Hours (Table) 03/29/19 03/29/19 Range/Units 05:30 10:40 Hgb 12.3 L (13.0-17.5) gm/dL Iron 56 L (65-175) ug/dL % Saturation 14.32 L (15.00-50.00) Ferritin 13.0 L (22.0-322.0) ng/mL Vitamin D 25-Hydroxy 20.3 L (30.0-100.0) ng/mL Diabetes panel 03/29/19 03/29/19 03/29/19 Range/Units 05:30 05:30 10:40 Sodium 138 139 (137-145) mmol/L Potassium 4.3 4.6 (3.5-5.1) mmol/L Chloride 104 104 (98-107) mmol/L Carbon Dioxide 27 27 (22-30) mmol/L BUN 12 11 (9-20) mg/dL Creatinine 0.85 0.85 (0.66-1.25) mg/dL Glucose 87 83 (74-99) mg/dL Hemoglobin A1c 5.5 (4.0-6.0) % Calcium 9.0 9.5 (8.4-10.2) mg/dL AST 25 (17-59) U/L ALT 26 (21-72) U/L Alkaline Phosphatase 52 (38-126) U/L Total Protein 6.9 (6.3-8.2) g/dL Albumin 4.1 (3.5-5.0) g/dL Calcium panel 03/29/19 03/29/19 Range/Units 05:30 10:40 Calcium 9.0 9.5 (8.4-10.2) mg/dL Phosphorus 3.8 (2.5-4.5) mg/dL Albumin 4.1 (3.5-5.0) g/dL Pituitary panel 03/29/19 03/29/19 Range/Units 05:30 10:40 Sodium 138 139 (137-145) mmol/L Potassium 4.3 4.6 (3.5-5.1) mmol/L Chloride 104 104 (98-107) mmol/L Carbon Dioxide 27 27 (22-30) mmol/L BUN 12 11 (9-20) mg/dL Creatinine 0.85 0.85 (0.66-1.25) mg/dL Glucose 87 83 (74-99) mg/dL Calcium 9.0 9.5 (8.4-10.2) mg/dL Adrenal panel 03/29/19 03/29/19 Range/Units 05:30 10:40 Sodium 138 139 (137-145) mmol/L Potassium 4.3 4.6 (3.5-5.1) mmol/L Chloride 104 104 (98-107) mmol/L Carbon Dioxide 27 27 (22-30) mmol/L BUN 12 11 (9-20) mg/dL Creatinine 0.85 0.85 (0.66-1.25) mg/dL Glucose 87 83 (74-99) mg/dL Calcium 9.0 9.5 (8.4-10.2) mg/dL Total Bilirubin 0.6 (0.2-1.3) mg/dL AST 25 (17-59) U/L ALT 26 (21-72) U/L Alkaline Phosphatase 52 (38-126) U/L Total Protein 6.9 (6.3-8.2) g/dL Albumin 4.1 (3.5-5.0) g/dL
--- NOTE | 2019-03-29 14:06 | P.GSCN ---
<Sigrid Sal - Last Filed: 03/29/19 13:53> History of Present Illness Consult date: 03/29/19 Reason for Consult: Left lower extremity edema Left lower extremity DVT History of present illness: The patient 73-year-old male with past medical history including hypertension, osteoarthritis, left leg lymphedema, and cellulitis, gastric bypass surgery, necrotizing fasciitis 25 years ago, coronary artery disease status post CABG. Patient presented to his PCP Dr. Shukla outpatient with complaints of left lower extremity changes including feeling tingly, with increased swelling for approximately 2 weeks. He was sent to the emergency room by Dr. Shukla for tachycardia in the office. Patient denies any chest pain or dyspnea. Patient denies any pain in the left lower extremity, no redness or increased warmth to touch, or fevers. Labs have been unremarkable, on admission d-dimer 0.36, PT 10, INR 0.9, PTT 32.2. On admission EKG did show atrial fibrillation with heart rate in the 140s and 150s, he was started on heparin drip and Cardizem drip in the emergency room, he has since had a normalized heartrate. We were asked to see this patient regarding left lower extremity swelling. Patient had a venous Doppler of the left lower extremity on 03/26/19 which showed a possible non-occlusive DVT with minimal color flow and pain compression. Repeat venous Doppler on 03/28/2019 showed a negative DVT with normal flow, compressibility, and vascular waveforms. Ultrasound of the groin shows a left groin enlarged lymph node measuring 4.8 x 1.[address] angiogram was negative for PE. Patient was started on Eliquis 5 mg twice a day on 03/27/2019 Review of Systems 14 point review of systems performed. Pertinent positives and negatives per the HPI. 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 History of Any Multi-Drug Resistant Organisms: Other MDRO Year Discovered:: 1995 MDRO Source:: l leg Past Surgical History: Bariatric Surgery, Joint Replacement, Orthopedic Surgery Additional Past Surgical History / Comment(s): Gastric bypass, bilateral total knee arhtroplasties, R clavicle fracture with screw which was removed when he had R shoulder dislocation/surgery, L groin lymph node removed d/t lymphadenopa thy then surgery for L groin hematoma, colonoscopy. Past Anesthesia/Blood Transfusion Reactions: No Reported Reaction Past Psychological History: No Psychological Hx Reported Additional Psychological History / Comment(s): Pt resides alone. He is independent. He enjoys motorcycle riding [place] [facility]. Smoking Status: Former smoker Past Alcohol Use History: Unable to Obtain Additional Past Alcohol Use History / Comment(s): QUIT SMOKING IN 2002 STARTED AT AGE 14/ SMOKED 1PPD Past Drug Use History: None Reported - Past Family History Mother Family Medical History: Diabetes Mellitus Father Family Medical History: Diabetes Mellitus Medications and Allergies Home Medications Medication Instructions Recorded Confirmed Type Multivitamin [Men's Multi-Vitamin] 1 tab PO DAILY 12/26/13 03/26/19 History Vit C/E/Zn/Coppr/Lutein/Zeaxan 1 cap PO DAILY 03/26/19 03/26/19 History [Preservision Areds 2 Softgel] Apixaban [Eliquis] 5 mg PO BID #60 tab 03/29/19 Rx Metoprolol Tartrate [Lopressor] 25 mg PO BID #60 tab 03/29/19 Rx Allergies Allergy/AdvReac Type Severity Reaction Status Date / Time No Known Allergies Allergy Verified 03/26/19 14:09 Surgical - Exam Vital Signs Temp Pulse Resp BP Pulse Ox 97.8 F 150 H 19 145/79 98 03/26/19 11:58 03/26/19 11:58 03/26/19 11:58 03/26/19 11:58 03/26/19 11:58 General appearance: The patient is alert, oriented, in no acute distress. HET: Head is normocephalic and atraumatic. Pupils are equal and reactive. Oropharynx is clear without lesions. Neck: Supple without lymphadenopathy. Trachea midline. Heart: S1 S2. Regular rate and rhythm. Lungs: No crackles or wheezes are heard. Abdomen: Soft, nontender, nondistended with bowel sounds. No peritoneal signs. No palpable organomegaly or masses. Extremities: Normal skin color and turgor. No cyanosis, rash, ulceration, or clubbing. Bilateral lower extremities warm to the touch no redness. Left lower extremity with +1 pitting edema. Bilateral palpable femoral, popliteal, TP and DP pulses. Left lower extremity with evidence of old wounds and new wounds healing. Neurological: No focal deficits. Strength and sensation are grossly intact. - General General appearance: The patient is alert, oriented, in no acute distress. HET: Head is normocephalic and atraumatic. Pupils are equal and reactive. Oropharynx is clear without lesions. Neck: Supple without lymphadenopathy. Trachea midline. Heart: S1 S2. Regular rate and rhythm. Lungs: No crackles or wheezes are heard. Abdomen: Soft, nontender, nondistended with bowel sounds. No peritoneal signs. No palpable organomegaly or masses. Extremities: Normal skin color and turgor. Bilateral lower extremities warm to the touch, no redness, or ulcerations. Left lower anterior and posterior extremity with scar tissue well-healed. Right extremity with no edema left lower extremity +1 pitting edema. Positive bilateral femoral, popliteal, DP and TP pulses present. Negative Homans. Bilateral sensory and motor intact with adequate capillary refill. Neurological: No focal deficits. Strength and sensation are grossly intact. Results Venous Dopplers of the left lower extremity reviewed. Repeat venous Doppler of left lower extremity shows negative for DVT, with normal flow, compressibility and vascular waveform. CT angiogram negative for PE. Left groin ultrasound positive for enlarged lymph node entering for 0.8 x 1.8 x 1.8 cm, unchanged from 2014. - Labs 03/29/19 05:30 03/29/19 10:40 Abnormal Lab Results - Last 24 Hours (Table) 03/29/19 Range/Units 05:30 Hgb 12.3 L (13.0-17.5) gm/dL Diabetes panel 03/29/19 03/29/19 Range/Units 05:30 10:40 Sodium 138 139 (137-145) mmol/L Potassium 4.3 4.6 (3.5-5.1) mmol/L Chloride 104 104 (98-107) mmol/L Carbon Dioxide 27 27 (22-30) mmol/L BUN 12 11 (9-20) mg/dL Creatinine 0.85 0.85 (0.66-1.25) mg/dL Glucose 87 83 (74-99) mg/dL Calcium 9.0 9.5 (8.4-10.2) mg/dL AST 25 (17-59) U/L ALT 26 (21-72) U/L Alkaline Phosphatase 52 (38-126) U/L Total Protein 6.9 (6.3-8.2) g/dL Albumin 4.1 (3.5-5.0) g/dL Calcium panel 03/29/19 03/29/19 Range/Units 05:30 10:40 Calcium 9.0 9.5 (8.4-10.2) mg/dL Phosphorus 3.8 (2.5-4.5) mg/dL Albumin 4.1 (3.5-5.0) g/dL Pituitary panel 03/29/19 03/29/19 Range/Units 05:30 10:40 Sodium 138 139 (137-145) mmol/L Potassium 4.3 4.6 (3.5-5.1) mmol/L Chloride 104 104 (98-107) mmol/L Carbon Dioxide 27 27 (22-30) mmol/L BUN 12 11 (9-20) mg/dL Creatinine 0.85 0.85 (0.66-1.25) mg/dL Glucose 87 83 (74-99) mg/dL Calcium 9.0 9.5 (8.4-10.2) mg/dL Adrenal panel 03/29/19 03/29/19 Range/Units 05:30 10:40 Sodium 138 139 (137-145) mmol/L Potassium 4.3 4.6 (3.5-5.1) mmol/L Chloride 104 104 (98-107) mmol/L Carbon Dioxide 27 27 (22-30) mmol/L BUN 12 11 (9-20) mg/dL Creatinine 0.85 0.85 (0.66-1.25) mg/dL Glucose 87 83 (74-99) mg/dL Calcium 9.0 9.5 (8.4-10.2) mg/dL Total Bilirubin 0.6 (0.2-1.3) mg/dL AST 25 (17-59) U/L ALT 26 (21-72) U/L Alkaline Phosphatase 52 (38-126) U/L Total Protein 6.9 (6.3-8.2) g/dL Albumin 4.1 (3.5-5.0) g/dL Assessment and Plan Assessment: #1 left lower extremity edema #2 atrial flutter, atypical, with rapid ventricular response, currently in normal sinus rhythm on Eliquis #3 history of left lower extremity necrotizing infection #4 left groin enlarged lymph node - stable Plan: Left lower extremity venous Doppler shows negative DVT. Recommend compression stockings and elevation of the left lower extremity. Follow-up in outpatient setting. No planned vascular surgery intervention at this time. Thank you for this kind referral and the opportunity to participate in the care of your patient. This consultation was discussed with Dr. Saldana. The impression and plan of care have been directed as dictated. <Molly Saldana - Last Filed: 03/30/19 10:34> Surgical - Exam Vital Signs Temp Pulse Resp BP Pulse Ox 97.8 F 150 H 19 145/79 98 03/26/19 11:58 03/26/19 11:58 03/26/19 11:58 03/26/19 11:58 03/26/19 11:58 Results - Labs 03/29/19 05:30 03/29/19 10:40 Abnormal Lab Results - Last 24 Hours (Table) 03/29/19 Range/Units 10:40 Iron 56 L (65-175) ug/dL % Saturation 14.32 L (15.00-50.00) Ferritin 13.0 L (22.0-322.0) ng/mL Vitamin D 25-Hydroxy 20.3 L (30.0-100.0) ng/mL Diabetes panel 03/29/19 03/29/19 Range/Units 05:30 10:40 Sodium 139 (137-145) mmol/L Potassium 4.6 (3.5-5.1) mmol/L Chloride 104 (98-107) mmol/L Carbon Dioxide 27 (22-30) mmol/L BUN 11 (9-20) mg/dL Creatinine 0.85 (0.66-1.25) mg/dL Glucose 83 (74-99) mg/dL Hemoglobin A1c 5.5 (4.0-6.0) % Calcium 9.5 (8.4-10.2) mg/dL AST 25 (17-59) U/L ALT 26 (21-72) U/L Alkaline Phosphatase 52 (38-126) U/L Total Protein 6.9 (6.3-8.2) g/dL Albumin 4.1 (3.5-5.0) g/dL Calcium panel 03/29/19 Range/Units 10:40 Calcium 9.5 (8.4-10.2) mg/dL Phosphorus 3.8 (2.5-4.5) mg/dL Albumin 4.1 (3.5-5.0) g/dL Pituitary panel 03/29/19 Range/Units 10:40 Sodium 139 (137-145) mmol/L Potassium 4.6 (3.5-5.1) mmol/L Chloride 104 (98-107) mmol/L Carbon Dioxide 27 (22-30) mmol/L BUN 11 (9-20) mg/dL Creatinine 0.85 (0.66-1.25) mg/dL Glucose 83 (74-99) mg/dL Calcium 9.5 (8.4-10.2) mg/dL Adrenal panel 03/29/19 Range/Units 10:40 Sodium 139 (137-145) mmol/L Potassium 4.6 (3.5-5.1) mmol/L Chloride 104 (98-107) mmol/L Carbon Dioxide 27 (22-30) mmol/L BUN 11 (9-20) mg/dL Creatinine 0.85 (0.66-1.25) mg/dL Glucose 83 (74-99) mg/dL Calcium 9.5 (8.4-10.2) mg/dL Total Bilirubin 0.6 (0.2-1.3) mg/dL AST 25 (17-59) U/L ALT 26 (21-72) U/L Alkaline Phosphatase 52 (38-126) U/L Total Protein 6.9 (6.3-8.2) g/dL Albumin 4.1 (3.5-5.0) g/dL Assessment and Plan Plan: The patient was seen and examined with [employer]. Agree with above findings as well as assessment and plan. Follow up with [facility] outpatient regarding possible reflux studies and venous treatment. Obtain compression stockings. Continue anticoagulation per Card[facility].
[2019-03-29] MEDS: SODIUM CHLORIDE 0.9% 1,000 ML IV SCH (15:23)
[2019-03-29 15:27] VITALS: BMI 38.1
--- NOTE | 2019-03-29 15:33 | P.PN ---
Subjective Progress Note Date: 03/29/19 This is a pleasant 73-year-old gentleman with no prior documented history of hypertension, no diabetes, no hyperlipidemia, no prior CVA, no history of congestive heart failure, he is a nonsmoker, rarely drinks alcohol. He does have a history of necrotizing fasciitis several years ago the left lower extremity. Patient has noticed recently some swelling in that left leg, and for this reason went to see his primary care doctor he checked his heart rate and blood pressure while in the office, noted his heart rate to be significantly elevated and the patient was referred to come to the hospital for admission. He also states that 15 years ago or so he may have been told to have an irregular heartbeat, he even more monitor at that time, but was not placed on any blood thinners. EKG on presentation here showed atrial flutter with rapid ventricular response, nonspecific ST-T wave changes. Venous duplex study was also performed which revealed a nonocclusive DVT below the knee on the left leg. Adenopathy of the left inguinal region. Chest x-ray did not reveal any acute cardiopulmonary process. Blood pressure 144/90 with a heart rate in the 70s, 98% on room air. White blood cell count 6.7, hemoglobin 12.3, platelet count 259. D-dimer 0.3. Sodium 140, potassium 4.8, BUN 9 and creatinine 0.9. Troponin 0.034. TSH 0.981. 03/28/2019 Patient was seen and examined this morning, currently in a normal sinus rhythm. Echocardiogram with Doppler study was performed which revealed an ejection fraction of 40-45%, basal inferior septal and mid inferior septal hypokinesia noted. Patient overall feels well today. I did have a lengthy discussion with the patient regarding the need for cardiac catheterization, based on this fact that his LV function is reduced. The reduction in LV function could be secondary to his rapid atrial flutter on admission here, however we need to rule out any underlying coronary artery patient from our perspective may be able to be discharged home today, we will schedule an outpatient cardiac catheterization within the next 7-10 days. Blood pressure 140/70 with a heart rate in the 70s, 96% on room air. 03/29/2019 Patient was seen and examined today, continues to be in a normal sinus rhythm. Anticipating discharge home today. Blood pressure 140/90 with a heart rate in the 60s, 98% on room air. Sodium 139, potassium 4.6, BUN 11 and creatinine 0.8. Objective - Vital Signs Vital signs: Vital Signs Temp 97.9 F 03/29/19 11:43 Pulse 63 03/29/19 11:43 Resp 18 03/29/19 11:43 BP 145/97 03/29/19 11:43 Pulse Ox 98 03/29/19 11:43 Intake & Output 03/28/19 03/29/19 03/29/19 18:59 06:59 18:59 Intake Total 720 480 Output Total 200 Balance 520 480 Weight 124.1 kg 124.1 kg Intake: Oral 720 480 Output: Urine 200 Other: Voiding Method Toilet Toilet # Voids 1 1 2 - Exam PHYSICAL EXAMINATION: GENERAL: 73-year-old gentleman in no acute distress at the time of my examination HEENT: Head is atraumatic, normocephalic. Pupils equal, round. Sclera ani cteric. Conjunctiva are clear. Mucous membranes of the mouth are moist. Neck is supple. There is no elevated jugular venous pressure. No carotid bruit is heard. HEART EXAMINATION: S1 and S2 normal CHEST EXAMINATION: Lungs are clear to auscultation and precussion. No chest wall tenderness is noted on palpation or with deep breathing. ABDOMEN: Soft, nontender. Bowel sounds are heard. No organomegaly noted. EXTREMITIES: 2+ peripheral pulses with 1-2+ edema of the left lower extremity wi th evidence of erythema and 2 open ulcerated areas. NEUROLOGIC patient is awake, alert and oriented 3. . - Labs CBC & Chem 7: 03/29/19 05:30 03/29/19 10:40 Labs: Abnormal Lab Results - Last 24 Hours (Table) 03/29/19 Range/Units 05:30 Hgb 12.3 L (13.0-17.5) gm/dL Assessment and Plan Plan: Assessment and plan #1 atrial flutter, atypical, with rapid ventricular response, currently in normal sinus rhythm #2 left lower extremity edema and redness, venous duplex study shows a nonocclusive DVT below the knee #3 history of necrotizing fasciitis several years ago Plan From cardiology's perspective, patient may be able to be discharged home today. Follow-up appointment in the office post discharge. Patient will be scheduled for cardiac catheterization within the next 7-10 days. DNP note has been reviewed, I agree with a documented findings and plan of care. Patient was seen and examined.
[2019-03-29] MEDS ORDERED: INFLUENZA VACCINE (6 MOS+) 60 MCG/0.5 ML SYRINGE IM ONE (15:44)
[2019-03-29 17:03] LABS: % Iron Saturation 14.32 (15.00-50.00); Folate, Serum 18.9 ng/mL; Iron 56 ug/dL (65-175); Total Iron Binding Capacity 391 ug/dL (228-460)
[2019-03-29 17:54] LABS: Hemoglobin A1C 5.5 % (4.0-6.0)
[2019-03-30 12:34] LABS: Zinc, Serum 92 ug/dL (60-130)
--- NOTE | 2019-03-30 19:40 | P.DS ---
Providers Date of admission: 03/26/19 15:27 Expected date of discharge: 03/29/19 Attending physician: Alexis Brannon Consults: 03/26/19 15:28 Consult Physician Routine Consulting Provider: Arnold Bullock Consult Reason/Comments: Rapid atrial flutter Do you want consulting provider notified?: Yes 03/27/19 10:11 Consult Physician Urgent Consulting Provider: Roberto Bains Consult Reason/Comments: Left DVT and left groin lymphadenopathy Do you want consulting provider notified?: Yes 03/28/19 12:38 Consult Physician Routine Consulting Provider: Annabella John Consult Reason/Comments: left groin lymphadenopathy opinion re Bx or excision Do you want consulting provider notified?: Yes 03/29/19 09:55 Consult Physician Routine Consulting Provider: Molly Saldana Consult Reason/Comments: Per Dr. John, left lower extremity lymphedema Do you want consulting provider notified?: Yes Primary care physician: Harshad Shukla [facility] Course: Interval history: This very pleasant 73-year-old patient, of Dr. Ashlee Shukla was sent in from her office for elevated heart rate. Found to be in atrial flutter with a rapid ventricular rate. went back to sinus rhythm. Patient also had some discomfort in the leftleg. Initial Doppler ultrasound showed nonocclusive DVT. Repeat ultrasound was negative for DVT. Patient has left groin adenopathy.seen by Dr. Dwyer. Not for any further intervention. results of 2-D echo and left groin ultrasound noted below..computed tomography scan of the abdomen results noted. Nothing specific. consultation: Dr. Dwyer from general surgery Dr. Saldana from vascular surgery Dr. Bains from oncology [facility] On examination: VITAL SIGNS: 97.9, 68, 18, 145/97, 98% room air GENERAL APPEARANCE: Sitting up in a chair, comfortable. HEENT: Normal external appearance of nose and ear. Oral cavity normal EYES: Pupils equal. Conjunctiva normal. NECK: JVD not raised. Mass not palpable. RESPIRATORY: Respiratory effort normal. Lungs clear to auscultation. CARDIOVASCULAR: First and second sounds normal. No edema. ABDOMEN: Soft. Liver and spleen not palpable. No tenderness. No mass palpable. PSYCHIATRY: Alert and oriented x3. Mood and affect normal. INVESTIGATIONS, reviewed in the clinical context: white count 45.9 hemoglobin 12.3 progression 4.6 creatinine 0.85 Previous testing Doppler ultrasound-negative for DVT Chest CTA-negative for PE 2-D echocardiogram-EF 40-45%, with some wall motion abnormality EKG tracing personally reviewed by me shows atrial flutter with a rapid ventricular rate from 03/26/2019 Left groin ultrasound-lymph nodes enlarged, 4.8 cm, 1.8 cm common 0.8 cm. computed tomography scan of the abdomen. No specific findings. Assessment: -Paroxysmal atrial flutter with a rapid ventricular rate, now in sinus rhythm. Started on eliquis -Chronic congestive heart failure from systolic dysfunction EF 40-45%, with wall motion abnormality, for outpatient cardiac catheterization by cardiology -Hypertensive heart disease -Essential hypertension -Primary osteoarthritis -History of gastric bypass surgery -Left groin adenopathy. disposition: Home Patient Condition at Discharge: Stable Plan - Discharge Summary Discharge Rx Participant: No New Discharge Prescriptions: New Apixaban [Eliquis] 5 mg PO BID #60 tab Metoprolol Tartrate [Lopressor] 25 mg PO BID #60 tab Continue Multivitamin [Men's Multi-Vitamin] 1 tab PO DAILY Vit C/E/Zn/Coppr/Lutein/Zeaxan [Preservision Areds 2 Softgel] 1 cap PO DAILY Discontinued Aspirin EC [Ecotrin Low Dose] 81 mg PO DAILY Discharge Medication List Multivitamin [Men's Multi-Vitamin] 1 tab PO DAILY 12/26/13 [History] Vit C/E/Zn/Coppr/Lutein/Zeaxan [Preservision Areds 2 Softgel] 1 cap PO DAILY 03/26/19 [History] Apixaban [Eliquis] 5 mg PO BID #60 tab 03/29/19 [Rx] Metoprolol Tartrate [Lopressor] 25 mg PO BID #60 tab 03/29/19 [Rx] Follow up Appointment(s)/Referral(s): Arnold Bullock MD [STAFF PHYSICIAN] - 1 Week (Please follow up with Dr. Bullock after your heart catheterization.) Molly Saldana DO [STAFF PHYSICIAN] - 04/11/19 10:30 am ([facility] [address] [place] [address], [address] [place] [address] Office number: [phone] ) Harshad Shukla DO [Primary Care Provider] - 04/03/19 3:15 pm [facility] [NON-STAFF] - 04/11/19 3:20 pm () Patient Instructions/Handouts: Atrial Flutter (DC), Left Heart Catheterization (PRE), Deep Vein Thrombosis (DC), Safe Use of Anticoagulants (DC) Activity/Diet/Wound Care/Special Instructions: pts 30 day copay for eliquis is $25. pts 1st 30 day supply is filled in [facility] pharmacy. Discharge Disposition: HOME SELF-CARE
[2019-03-31 13:55] LABS: Vit B1(Thiamine) 64 ug/L (38-122)
[2019-04-02 06:23] LABS: Vitamin A 63 ug/dL (38-106)
[2019-04-02 18:10] LABS: Selenium 128 mcg/L (63-160)
== END 2019-03-29 16:28 | disposition home or self-care (01) | DRG 309 ==
LOC: EC 11:47 → 3SCARD 15:27
PROVIDERS: ADMIT Hospitalist; ATTEND Hospitalist
DX: I48.4 Atypical atrial flutter (principal); I50.22 Chronic systolic (congestive) heart failure; I11.0 Hypertensive heart disease with heart failure; H35.30 Unspecified macular degeneration; Z96.653 Presence of artificial knee joint, bilateral; M19.91 Primary osteoarthritis, unspecified site; R59.0 Localized enlarged lymph nodes; R13.10 Dysphagia, unspecified; E66.9 Obesity, unspecified; I08.1 Rheumatic disorders of both mitral and tricuspid valves; I25.10 Atherosclerotic heart disease of native coronary artery without angina pectoris; Z98.890 Other specified postprocedural states; Z98.84 Bariatric surgery status; Z83.3 Family history of diabetes mellitus; Z95.1 Presence of aortocoronary bypass graft; Z79.01 Long term (current) use of anticoagulants; Z79.82 Long term (current) use of aspirin; Z86.19 Personal history of other infectious and parasitic diseases; Z87.01 Personal history of pneumonia (recurrent); Z86.2 Personal history of diseases of the blood and blood-forming organs and certain disorders involving the immune mechanism; Z87.39 Personal history of other diseases of the musculoskeletal system and connective tissue; Z90.49 Acquired absence of other specified parts of digestive tract; Z79.899 Other long term (current) drug therapy; Z68.38 Body mass index [BMI] 38.0-38.9, adult; Z87.891 Personal history of nicotine dependence
CPT/HCPCS: 36415; 71046; 71275; 74177; 80048; 80053; 80061; 82306; 82525; 82550; 82607; 82728; 82746; 83036; 83540; 83550; 83735; 83970; 84100; 84134; 84255; 84425; 84443; 84484; 84590; 84630; 85025; 85379; 85610; 85730; 90686; 93005; 93306; 96365; 96366; 96375; 96376; 99291

== ENCOUNTER → 2019-04-11 | Outpatient (CLI) | payer MEDICARE, BC ==
--- NOTE | 2019-04-11 16:14 | P.HPBAR ---
Bariatric H&P - History & Physicial H&P Date: 04/11/19 History & Physicial: Visit/CC: Patient initial contact: Initial weight: Initial weight in pounds: Height: Initial BMI: Last weight: Current weight: Current weight in pounds: Current BMI: [place] body weight (based on NIH guidelines): Excess body weight loss: The patient is a 73 year-old M who presents for Bariatric Assessment. DATE OF SERVICE: 04/11/2019 REASON FOR CONSULTATION: Initial bariatric evaluation. HISTORY OF PRESENT ILLNESS: Boy Bledsoe is a 73-year-old male status post open gastric bypass, 2002. He has been lost to follow up for over 10 years. He has dysphagia to tough meat and breads. He has troubles with low energy. He was recently hospitalized for atrial fibrillation with rapid ventricular response including lymphocele of the left leg. He presents for the first time bariatric assessment. His highest weight was 425 pounds. He reports he will be leaving for [place]. At height of 5 feet 7 inches, ideal body weight is 158 pounds. His highest weigh was 425 pounds, BMI 66.7. He comes in 285 pounds, BMI 44.7. He is 127 pounds overweight. PAST MEDICAL HISTORY: 1. Morbid obesity due to excess calories 2. Body mass index of 66.7, initial 3. Atrial fibrillation 4. Hypertensive heart disease 5. Lymphedema 6. Macular degeneration 7. Necrotizing fasciitis 8. Osteoarthritis bilateral knees 9. Iron deficiency anemia. PAST SURGICAL HISTORY: 1. Bilateral knee arthroplasty 2. Gastric bypass 3. Colonoscopy 4. Necrotizing fasciitis, left leg 5. Left leg groin exploration, lymphadenectomy HOME MEDICATIONS: Home Medications Medication Instructions Recorded Confirmed Multivitamin [Men's Multi-Vitamin] 1 tab PO DAILY 12/26/13 04/11/19 Vit C/E/Zn/Coppr/Lutein/Zeaxan 1 cap PO DAILY 03/26/19 04/11/19 [Preservision Areds 2 Softgel] Previous Rx's Medication Instructions Recorded Apixaban [Eliquis] 5 mg PO BID #60 tab 03/29/19 Metoprolol Tartrate [Lopressor] 25 mg PO BID #60 tab 03/29/19 Ergocalciferol [Vitamin D2 50,000 unit PO Q7D #30 cap 04/11/19 (DRISDOL)] Ferrous Sulfate [Feosol] 325 mg PO TID #120 tab 04/11/19 ALLERGIES: Allergies Allergy/AdvReac Type Severity Reaction Status Date / Time No Known Allergies Allergy Verified 04/11/19 17:10 SOCIAL HISTORY: Past tobacco use. FAMILY HISTORY: No family history of ulcerative colitis disease or Crohn's disease. Family history of morbid obesity. No lupus in the family. No reports of stomach or esophageal cancer. REVIEW OF ORGAN SYSTEMS: CONSTITUTIONAL: At height of 5 feet 7 inches, ideal body weight is 158 pounds. His highest weigh was 425 pounds, BMI 66.7. He comes in 285 pounds, BMI 44.7. He is 127 pounds overweight. HEENT: Denies any active troubles with vision or hearing. Has troubles with swallowing. ENDOCRINE: Past diabetes. No hypothyroidism. CARDIOVASCULAR: Past reports of palpitations or heart attacks or chest pain. Has atrial fibrillation RESPIRATORY: Has daytime somnolence now improved. No asthma. GASTROINTESTINAL: Denies any bright red blood per rectum. No diarrhea. No constipation. MUSCULOSKELETAL: Has lower back pain and joint pain. Has osteoarthritis of the knees. History of bilateral lower extremity edema. NEURO: No headaches. No seizure disorders. PSYCH: No depression. No suicidal ideation. RHEUMATOLOGIC: No lupus. No rheumatoid arthritis. HEMATOLOGIC: Denies any abnormal bleeding or bruising. No personal history of DVTs. On anticoagulant. SKIN: No rash. No skin cancer. PHYSICAL EXAM: VITAL SIGNS: Height 5 foot 7 inches, weight 285 pounds. BMI 44.7 Vital Signs Temp 97.6 F 04/11/19 16:26 Pulse 66 04/11/19 16:26 Resp 16 04/11/19 16:26 BP 139/84 04/11/19 16:26 Pulse Ox GENERAL: Well-developed in no acute distress. HEENT: No scleral icterus. Extraocular movements grossly intact. Hears conversational speech. No nasal drainage. NECK: Supple without lymphadenopathy. CHEST: Nonlabored respirations with equal bilateral excursions. CARDIOVASCULAR: Regular rate and regular rhythm. Distal 2+ pulses. ABDOMEN: Obese, soft, nontender, nondistended. MUSCULOSKELETAL: No clubbing, cyanosis. NEURO: No focal or lateralizing signs. Cranial nerves 2 through 12 grossly within normal limits. PSYCH: Appropriate affect. Alert and oriented to person, place and time. SKIN: Good skin turgor. Well perfused. LABS: Reviewed. Hgb low. Iron low. Vitamin D low. ASSESSMENT: 1. Morbid obesity due to excess calories 2. Body mass index of 66.7, initial 3. Atrial fibrillation 4. Hypertensive heart disease 5. Lymphedema 6. Macular degeneration 7. Necrotizing fasciitis 8. Osteoarthritis bilateral knees 9. Iron deficiency anemia. 10. Dysphagia 11. Vitamin D deficiency PLAN: 1. Recommend iron infusion for iron deficiency anemia. 2. Follow up after return September 2019 from [place]. 3. Will need upper endoscopy for dysphagia. 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 History of Any Multi-Drug Resistant Organisms: Other MDRO Year Discovered:: 1995 MDRO Source:: l leg Past Surgical History: Bariatric Surgery, Joint Replacement, Orthopedic Surgery Additional Past Surgical History / Comment(s): Gastric bypass, bilateral total knee arhtroplasties, R clavicle fracture with screw which was removed when he had R shoulder dislocation/surgery, L groin lymph node removed d/t lymphadenopathy then surgery for L groin hematoma, colonoscopy. Past Anesthesia/Blood Transfusion Reactions: No Reported Reaction Past Psychological History: No Psychological Hx Reported Additional Psychological History / Comment(s): Pt resides alone. He is independent. He enjoys motorcycle riding [place] to [facility]. Smoking Status: Former smoker Past Alcohol Use History: Unable to Obtain Additional Past Alcohol Use History / Comment(s): QUIT SMOKING IN 2002 STARTED AT AGE 14/ SMOKED 1PPD Past Drug Use History: None Reported - Past Family History Mother Family Medical History: Diabetes Mellitus Father Family Medical History: Diabetes Mellitus Bariatric Checklist Checklist: Plan: Checklist: EGD: 1. Hiatal hernia: 2. H. Pylori: HgbA1c: Vitamin D: Smoking: Former smoker Primary care physician referral: Psychiatry clearance: Cardiology clearance: Sleep study: Diet journal: VTE risk score: VTE risk level: Rehab needs at discharge:
[2019-04-11 16:32] VITALS: BP 139/84; PULSE 66; RESP 16; TEMP 97.6; BMI 44.6
== END ==
LOC: BARWHC3 15:37
PROVIDERS: ATTEND Surgery Plastic and Reconstructive Surgery
DX: R13.10 Dysphagia, unspecified (principal); Z87.891 Personal history of nicotine dependence
CPT/HCPCS: 99211

== ENCOUNTER 2019-11-23 17:33 | Inpatient (IN) | payer MEDICARE, BC ==
[2019-11-23] MEDS ORDERED: SODIUM CHLORIDE 0.9% 1,000 ML IV STA (17:45)
[2019-11-23] MEDS ORDERED: DILTIAZEM DRIP BOLUS FROM BAG 1 MG SOLN IV ONE (17:48)
--- NOTE | 2019-11-23 17:48 | ED ---
Syncope HPI - General Stated Complaint: Syncope Time Seen by Provider: 11/23/19 17:38 Source: RN notes reviewed, old records reviewed - History of Present Illness Initial Comments: This is a 74-year-old male DF for evaluation patient comes in for syncopal event A. fib with RVR and chest pain presented by EMS. Patient does admit to continued chest pain. Patient also complains of a syncopal episode today. No recent travel history or sick contacts currently denying chest pain MD Complaint: loss of consciousness, collapsed -: minutes(s) Prodromal Symptoms: none -: second(s) Witnessed: yes - by bystander Injuries Sustained Associated with Event: None Current Symptoms: none, back to baseline History: previous syncopal episode, history of CAD Context: at rest Treatments Prior to Arrival: none - Related Data Home Medications Medication Instructions Recorded Confirmed Multivitamin [Men's Multi-Vitamin] 1 tab PO DAILY 12/26/13 11/23/19 Aspirin EC [Ecotrin Low Dose] 81 mg PO DAILY 11/23/19 11/23/19 Allergies Allergy/AdvReac Type Severity Reaction Status Date / Time No Known Allergies Allergy Verified 11/23/19 19:16 Review of Systems ROS Statement: Those systems with pertinent positive or pertinent negative responses have been documented in the HPI. ROS Other: All systems not noted in ROS Statement are negative. 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 History of Any Multi-Drug Resistant Organisms: Other MDRO Date of last positivie culture/infection: 1995 MDRO Source:: l leg Past Surgical History: Bariatric Surgery, Joint Replacement, Orthopedic Surgery Additional Past Surgical History / Comment(s): Gastric bypass, bilateral total knee arhtroplasties, R clavicle fracture with screw which was removed when he had R shoulder dislocation/surgery, L groin lymph node removed d/t lymphadenopathy then surgery for L groin hematoma, colonoscopy. Past Anesthesia/Blood Transfusion Reactions: No Reported Reaction Past Psychological History: No Psychological Hx Reported Additional Psychological History / Comment(s): Pt resides alone. He is independent. [place] Smoking Status: Former smoker Past Alcohol Use History: Unable to Obtain Additional Past Alcohol Use History / Comment(s): QUIT SMOKING IN 2002 STARTED AT AGE 14/ SMOKED 1PPD Past Drug Use History: None Reported - Past Family History Mother Family Medical History: Diabetes Mellitus Father Family Medical History: Diabetes Mellitus General Exam General appearance: alert, in no apparent distress, anxious Head exam: Present: atraumatic, normocephalic, normal inspection Eye exam: Present: normal appearance, PERRL, EOMI. Absent: scleral icterus, conjunctival injection, periorbital swelling ENT exam: Present: normal exam, mucous membranes moist Neck exam: Present: normal inspection. Absent: tenderness, meningismus, lymphadenopathy Respiratory exam: Present: normal lung sounds bilaterally. Absent: respiratory distress, wheezes, rales, rhonchi, stridor Cardiovascular Exam: Present: tachycardia, irregular rhythm, normal heart sounds. Absent: systolic murmur, diastolic murmur, rubs, gallop, clicks GI/Abdominal exam: Present: soft, normal bowel sounds. Absent: distended, tenderness, guarding, rebound, rigid Extremities exam: Present: normal inspection, full ROM, normal capillary refill. Absent: tenderness, pedal edema, joint swelling, calf tenderness Back exam: Present: normal inspection Neurological exam: Present: alert, oriented X3, CN II-XII intact Psychiatric exam: Present: normal affect, normal mood Skin exam: Present: warm, dry, intact, normal color. Absent: rash Course Vital Signs 11/23/19 11/23/19 11/23/19 17:49 18:00 19:03 Temperature 98 F Pulse Rate 112 H 111 H 89 Respiratory 18 18 18 Rate Blood Pressure 124/80 146/70 145/85 O2 Sat by Pulse 97 96 97 Oximetry - Reevaluation(s) Reevaluation #1: 11/23/19 19:42 medical records reviewed Reevaluation #2: 11/23/19 19:42 No recurrent chest pain EKG Findings - EKG Comments: EKG Findings:: EKG is A. fib with RVR 112 QRS 116 QTC 494 Medical Decision Making - Medical Decision Making 74 male recurrent syncope A. fib with RVR chest pain. Mildly elevated troponin patient does have anticoagulation secondary to fibrillation but [place] for cardiac observation rate control trending of cardiac enzymes - Lab Data Result diagrams: 11/23/19 17:51 11/23/19 17:51 Lab Results 11/23/19 11/23/19 11/23/19 Range/Units 17:51 17:51 17:51 WBC 7.9 (3.8-10.6) k/uL RBC 4.81 (4.30-5.90) m/uL Hgb 14.4 (13.0-17.5) gm/dL Hct 43.9 (39.0-53.0) % MCV 91.3 (80.0-100.0) fL MCH 29.9 (25.0-35.0) pg MCHC 32.7 (31.0-37.0) g/dL RDW 14.1 (11.5-15.5) % Plt Count 270 (150-450) k/uL Neutrophils % 63 % Lymphocytes % 23 % Monocytes % 8 % Eosinophils % 4 % Basophils % 1 % Neutrophils # 5.0 (1.3-7.7) k/uL Lymphocytes # 1.8 (1.0-4.8) k/uL Monocytes # 0.6 (0-1.0) k/uL Eosinophils # 0.3 (0-0.7) k/uL Basophils # 0.1 (0-0.2) k/uL PT 10.2 (9.0-12.0) sec INR 1.0 (<1.2) APTT 20.7 L (22.0-30.0) sec Sodium 136 L (137-145) mmol/L Potassium 3.6 (3.5-5.1) mmol/L Chloride 105 (98-107) mmol/L Carbon Dioxide 23 (22-30) mmol/L Anion Gap 8 mmol/L BUN 11 (9-20) mg/dL Creatinine 0.93 (0.66-1.25) mg/dL Est GFR (CKD-EPI)AfAm >90 (>60 ml/min/1.73 sqM) Est GFR (CKD-EPI)NonAf 80 (>60 ml/min/1.73 sqM) Glucose 105 H (74-99) mg/dL Plasma Lactic Acid Chance (0.7-2.0) mmol/L Calcium 8.5 (8.4-10.2) mg/dL Phosphorus 3.2 (2.5-4.5) mg/dL Magnesium 2.2 (1.6-2.3) mg/dL Total Bilirubin 0.5 (0.2-1.3) mg/dL AST 17 (17-59) U/L ALT 11 (4-49) U/L Alkaline Phosphatase 63 (38-126) U/L Troponin I (0.000-0.034) ng/mL Total Protein 6.1 L (6.3-8.2) g/dL Albumin 3.9 (3.5-5.0) g/dL 11/23/19 11/23/19 Range/Units 17:51 17:51 WBC (3.8-10.6) k/uL RBC (4.30-5.90) m/uL Hgb (13.0-17.5) gm/dL Hct (39.0-53.0) % MCV (80.0-100.0) fL MCH (25.0-35.0) pg MCHC (31.0-37.0) g/dL RDW (11.5-15.5) % Plt Count (150-450) k/uL Neutrophils % % Lymphocytes % % Monocytes % % Eosinophils % % Basophils % % Neutrophils # (1.3-7.7) k/uL Lymphocytes # (1.0-4.8) k/uL Monocytes # (0-1.0) k/uL Eosinophils # (0-0.7) k/uL Basophils # (0-0.2) k/uL PT (9.0-12.0) sec INR (<1.2) APTT (22.0-30.0) sec Sodium (137-145) mmol/L Potassium (3.5-5.1) mmol/L Chloride (98-107) mmol/L Carbon Dioxide (22-30) mmol/L Anion Gap mmol/L BUN (9-20) mg/dL Creatinine (0.66-1.25) mg/dL Est GFR (CKD-EPI)AfAm (>60 ml/min/1.73 sqM) Est GFR (CKD-EPI)NonAf (>60 ml/min/1.73 sqM) Glucose (74-99) mg/dL Plasma Lactic Acid Chance 1.8 (0.7-2.0) mmol/L Calcium (8.4-10.2) mg/dL Phosphorus (2.5-4.5) mg/dL Magnesium (1.6-2.3) mg/dL Total Bilirubin (0.2-1.3) mg/dL AST (17-59) U/L ALT (4-49) U/L Alkaline Phosphatase (38-126) U/L Troponin I 0.018 (0.000-0.034) ng/mL Total Protein (6.3-8.2) g/dL Albumin (3.5-5.0) g/dL - Radiology Data Radiology results: report reviewed (Chest x-rays negative for acute disease), image reviewed Critical Care Time Critical Care Time: Yes Total Critical Care Time: 31 Disposition Clinical Impression: Vasovagal syncope, Dehydration, Chest pain Disposition: ADMITTED IP TO THIS [facility] Condition: Fair Is patient prescribed a controlled substance at d/c from ED?: No Referrals: Harshad Shukla DO [Primary Care Provider] - 1-2 days
[2019-11-23] MEDS ORDERED: DILTIAZEM 125 MG in SODIUM CHLORIDE 0.9% 100 ML IV SCH (18:00)
[2019-11-23 18:13] LABS: ALT 11 U/L (4-49); AST 17 U/L (17-59); African American GFR (CKD) >90 (>60 ml/min/1.73 sqM); Albumin 3.9 g/dL (3.5-5.0); Alkaline Phosphatase 63 U/L (38-126); Anion Gap 8 mmol/L; Blood Urea Nitrogen 11 mg/dL (9-20); Calcium 8.5 mg/dL (8.4-10.2); Carbon Dioxide 23 mmol/L (22-30); Chloride 105 mmol/L (98-107); Glucose 105 mg/dL (74-99); Magnesium 2.2 mg/dL (1.6-2.3); Non-African American GFR(CKD) 80 (>60 ml/min/1.73 sqM); Phosphorus 3.2 mg/dL (2.5-4.5); Potassium 3.6 mmol/L (3.5-5.1); Sodium 136 mmol/L (137-145); Total Bilirubin 0.5 mg/dL (0.2-1.3); Total Protein 6.1 g/dL (6.3-8.2)
[2019-11-23 18:20] LABS: Prothrombin Time 10.2 sec (9.0-12.0)
[2019-11-23 18:22] LABS: Basophils # (A) 0.1 k/uL (0-0.2); Basophils % (A) 1 %; Eosinophils # (A) 0.3 k/uL (0-0.7); Eosinophils % (A) 4 %; HCT 43.9 % (39.0-53.0); HGB 14.4 gm/dL (13.0-17.5); Lymphocytes # (A) 1.8 k/uL (1.0-4.8); Lymphocytes % (A) 23 %; MCH 29.9 pg (25.0-35.0); MCHC 32.7 g/dL (31.0-37.0); MCV 91.3 fL (80.0-100.0); Mean Platelet Volume 8.2; Monocytes # (A) 0.6 k/uL (0-1.0); Monocytes % (A) 8 %; Neutrophils % (A) 63 %; Platelet Count 270 k/uL (150-450); RBC 4.81 m/uL (4.30-5.90); RDW 14.1 % (11.5-15.5); WBC 7.9 k/uL (3.8-10.6)
--- NOTE | 2019-11-23 18:23 | XR ---
EXAMINATION TYPE: XR chest 2V DATE OF EXAM: 11/23/2019 COMPARISON: Prior chest 03/26/2019 HISTORY: Weakness, syncopal episodes TECHNIQUE: Frontal and lateral views of the chest are obtained. FINDINGS: There is no focal air space opacity, pleural effusion, or pneumothorax seen. The cardiac silhouette size is stable. The osseous structures are intact, there is stable expansion of the righ t clavicle, sclerotic density involving the left shoulder. Aorta is dense. IMPRESSION: No acute cardiopulmonary process.
[2019-11-23 18:25] LABS: Partial Thromboplastin Time 20.7 sec (22.0-30.0)
[2019-11-23] MEDS ORDERED: NITROGLYCERIN SL TABS 0.4 MG TAB SUBLINGUAL PRN (19:39)
[2019-11-23] MEDS ORDERED: ASPIRIN 81 MG PO STA (19:39)
[2019-11-24 04:03] LABS: Appearance,Urine Clear (Clear); Bilirubin,Urine Negative (Negative); Blood,Urine Negative (Negative); Color,Urine Yellow; Glucose,Urine (UA) Negative (Negative); Ketones,Urine Negative (Negative); Leukocyte Esterase,Urine Negative (Negative); Nitrite,Urine Negative (Negative); PH, Urine 5.5 (5.0-8.0); Protein,Urine Negative (Negative); Specific Gravity,Urine 1.014 (1.001-1.035); Urobilinogen,Urine <2.0 mg/dL (<2.0)
[2019-11-24 05:52] LABS: Cholesterol 197 mg/dL (<200); HDL Cholesterol 39 mg/dL (40-60); LDL Cholesterol,Calculated 128 mg/dL (0-99); Triglycerides 151 mg/dL (<150)
--- NOTE | 2019-11-24 08:32 | P.CRDCN ---
History of Present Illness Consult date: 11/24/19 Consult reason: sycope History of present illness: History of present illness: This is a 74-year-old male patient of with past medical history of hypertension, left lower extremity DVT and atrial fibrillation diagnosed in March 2019, chronic left lower extremity edema, history of gastric bypass surgery, macular degeneration, remote history of tobacco use quit in 2002 with a one pack per day greater than 50 year history. Patient gives history that yesterday he was standing on a stool in the garage helping a friend to work on a low he was only supervising. He developed a tingling sensation all over his body and then he had a recent episode of feeling disoriented and sweating and thought he was going to pass out. He may have passed out for 2-3 seconds at most. His friend was with him during the entire episode. EMS was called and the patient was placed on the ground and then brought into the hospital for further evaluation. Patient states over his entire lifetime he has had 4 similar episodes the last one [place] 7 [place]. Symptoms lasted for about 2-3 minutes and then he had about a 20 minute period where he wasn't quite himself and then he was back to normal. He had a previous episode at his father's . Patient had hospitalization March 2019 which time rafi bailey was diagnosed with new-onset atrial flutter and was placed on Pradaxa and Lopressor 25 mg twice daily. Patient was also diagnosed with left lower extremity DVT at that time and after 6 months completed course of Pradaxa and ended up discontinuing both Pradaxa and metoprolol. Patient was a smoker one pack per day and quit 20 years ago. He denies any alcohol use. EKG was atrial fibrillation at a rate of 112. Chest x-ray showed no acute cardiopulmonary process. Troponin 0.018, 0.023 and 0.071. Urinalysis negative. Cholesterol 197, triglycerides 151, LDL 120, HDL 39. Otherwise lab work was unremarkable. Patient has been placed on a Cardizem drip 5 mg per hour. He remains in atrial fibrillation rate controlled. Patient states he has had no further episodes and has been up to the bathroom and ambulating in his room. No lightheadedness or dizziness. No chest pain and no shortness of breath. During his hospitalization March 2019, patient was advised to undergo heart catheteri zation at that time due to wall motion abnormality which has not been done and patient will be scheduled for tomorrow. Review Of Systems: At the time of evaluation: Constitutional: No fever, no chills. No weakness, fatigue or lethargy. EENT: No headache. No blurred vision or double vision, no loss of vision. No loss of Hearing, no dizziness. No nasal drainage or congestion. No epistaxis. No sore throat. Lungs: No shortness of breath, cough, no sputum production. No wheezing. Cardiovascular: No chest pain, no lower extremity edema. No palpitations. No paroxysmal nocturnal dyspnea. No orthopnea. No lightheadedness or dizziness. No syncopal episodes. Abdominal: No abdominal pain. No nausea, vomiting. No diarrhea. No constipation. No bloody or tarry stools. No loss of appetite. Genitourinary: No dysuria, increased frequency, urgency. No urinary retention. Musculoskeletal: No myalgias. No muscle weakness, no gait dysfunction, no frequent falls. No back pain. No neck pain. Integumentary: No wounds, no lesions. No rash or pruritus. No unusual bruising. Neurologic: No aphasia. No facial droop. No change in mentation. No head injury. No headache. No paralysis. No paresthesia. Psychiatric: No depression. No anxiety. No mood swings. Endocrine: No abnormal blood sugars. No weight change. No excessive sweating or thirst. No weight change. Physical examination: Gen: This is a 74-year-old male. He is resting bed appears to be comfortable and in no acute distress. VS: Afebrile, heart rate 81, blood pressure 140/74, pulse ox 96% on room air. HEENT: Head is atraumatic, normocephalic. Pupils equal, round. Sclerae is anicteric. NECK: Supple. No JVD. No lymphadenopathy. No thyromegaly. LUNGS: Clear to auscultation. No wheezes or rhonchi. No intercostal retractions. HEART: Regular rate and rhythm. No murmur. ABDOMEN: Soft. Bowel sounds are present. No masses. No tenderness. EXTREMITIES: No pedal edema. No calf tenderness. NEUROLOGICAL: Patient is awake, alert and oriented x3. Cranial nerves 2 through 12 are grossly intact. Assessment: Syncopal episode possibly related to atrial fibrillation Atrial fibrillation, persistent Chronic left lower extremity edema with previous left lower extremity DVT Wall motion abnormality on previous echocardiogram History of gastric bypass surgery Macular degeneration Remote history of tobacco use Plan: Discontinue Cardizem drip and start Toprol-XL 50 mg daily Start heparin drip per protocol Obtain 2-D echocardiogram and Doppler study to assess cardiac structure and function Check TSH and free T4 Schedule patient for heart catheterization on Tuesday with Dr. Goldberg Further recommendations to follow based upon clinical course Thank you kindly for this consultation Nurse practitioner note has been reviewed, I agree with documented findings and plan of care. Patient was seen and examined. Past Medical History Past Medical History: Atrial Fibrillation, Eye Disorder, Hypertension, Osteoarthritis (OA), Pneumonia, Syncope Additional Past Medical History / Comment(s): 1995 streptococcal infection L leg with necrotizing fascitis/sepsis with lower leg cellulitis and ascending lymphangitis, chronic L leg lymphedema, past htn but pt states was taken off meds about a year ago, pneumonia with pleurisy, anemia after gastric bypass surgery, mild macular degeneration bilateral eyes. History of Any Multi-Drug Resistant Organisms: Other MDRO Date of last positivie culture/infection: 1995 MDRO Source:: l leg Past Surgical History: Bariatric Surgery, Joint Replacement, Orthopedic Surgery Additional Past Surgical History / Comment(s): Gastric bypass, bilateral total knee arhtroplasties, R clavicle fracture with screw which was removed when he had R shoulder dislocation/surgery, L groin lymph node removed d/t lymphadenopathy then surgery for L groin hematoma, colonoscopy. Past Anesthesia/Blood Transfusion Reactions: No Reported Reaction Past Psychological History: No Psychological Hx Reported Additional Psychological History / Comment(s): Pt resides alone. He is independent. He enjoys motorcycle riding [place] to [facility]. Smoking Status: Former smoker Past Alcohol Use History: Unable to Obtain Additional Past Alcohol Use History / Comment(s): QUIT SMOKING IN 2002 STARTED AT AGE 14/ SMOKED 1PPD Past Drug Use History: None Reported - Past Family History Mother Family Medical History: Diabetes Mellitus Father Family Medical History: Diabetes Mellitus Medications and Allergies Home Medications Medication Instructions Recorded Confirmed Type Multivitamin [Men's Multi-Vitamin] 1 tab PO DAILY 12/26/13 11/23/19 History Aspirin EC [Ecotrin Low Dose] 81 mg PO DAILY 11/23/19 11/23/19 History Allergies Allergy/AdvReac Type Severity Reaction Status Date / Time No Known Allergies Allergy Verified 11/23/19 19:16 Physical Exam Vitals: Vital Signs Temp Pulse Pulse Resp BP BP Pulse Ox 11/24/19 04:00 98 F 81 18 140/74 96 11/23/19 21:30 97.8 F 68 16 169/82 98 11/23/19 20:59 97.8 F 98 18 125/91 97 11/23/19 19:03 89 18 145/85 97 11/23/19 18:00 111 H 18 146/70 96 11/23/19 17:49 98 F 112 H 18 124/80 97 Intake and Output 11/23/19 11/24/19 11/24/19 22:59 06:59 14:59 Intake Total 672 Output Total 1100 Balance 672 -1100 Intake: Oral 672 Output: Urine 1100 Other: Voiding Method Toilet Toilet # Voids 1 Weight 117.934 kg 120.2 kg Results 11/23/19 17:51 11/23/19 17:51 Cardiac Enzymes 11/23/19 11/23/19 11/23/19 Range/Units 17:51 17:51 20:51 AST 17 (17-59) U/L Troponin I 0.018 0.023 (0.000-0.034) ng/mL 11/23/19 Range/Units 23:49 AST (17-59) U/L Troponin I 0.017 (0.000-0.034) ng/mL Coagulation 11/23/19 Range/Units 17:51 PT 10.2 (9.0-12.0) sec APTT 20.7 L (22.0-30.0) sec Lipids 11/23/19 Range/Units 17:51 Triglycerides 151 H (<150) mg/dL Cholesterol 197 (<200) mg/dL HDL Cholesterol 39 L (40-60) mg/dL CBC 11/23/19 Range/Units 17:51 WBC 7.9 (3.8-10.6) k/uL RBC 4.81 (4.30-5.90) m/uL Hgb 14.4 (13.0-17.5) gm/dL Hct 43.9 (39.0-53.0) % Plt Count 270 (150-450) k/uL Comprehensive Metabolic Panel 11/23/19 Range/Units 17:51 Sodium 136 L (137-145) mmol/L Potassium 3.6 (3.5-5.1) mmol/L Chloride 105 (98-107) mmol/L Carbon Dioxide 23 (22-30) mmol/L BUN 11 (9-20) mg/dL Creatinine 0.93 (0.66-1.25) mg/dL Glucose 105 H (74-99) mg/dL Calcium 8.5 (8.4-10.2) mg/dL AST 17 (17-59) U/L ALT 11 (4-49) U/L Alkaline Phosphatase 63 (38-126) U/L Total Protein 6.1 L (6.3-8.2) g/dL Albumin 3.9 (3.5-5.0) g/dL Current Medications Generic Name Dose Route Start Last Admin Trade Name Freq PRN Reason Stop Dose Admin Aspirin 325 mg 11/24/19 09:00 Aspirin PO DAILY TOMASA Diltiazem HCl 125 mg/ Sodium 125 mls @ 5 mls/hr 11/23/19 18:00 11/23/19 18:17 Chloride IV 5 mg/hr .Q24H TOMASA 5 mls/hr Administration 5 MG/HR Nitroglycerin 0.4 mg 11/23/19 19:39 Nitrostat SUBLINGUAL Q5M PRN Chest Pain Intake and Output 11/23/19 11/24/19 11/24/19 22:59 06:59 14:59 Intake Total 672 Output Total 1100 Balance 672 -1100 Intake: Oral 672 Output: Urine 1100 Other: Voiding Method Toilet Toilet # Voids 1 Weight 117.934 kg 120.2 kg 11/23/19 17:51 11/23/19 17:51
[2019-11-24] MEDS ORDERED: ASPIRIN 325 MG TAB PO SCH (09:00)
[2019-11-24] MEDS ORDERED: ALPRAZolam 0.25 MG TAB PO PRN (09:54)
[2019-11-24] MEDS ORDERED: NITROGLYCERIN SL TABS 0.4 MG TAB SUBLINGUAL PRN (09:54)
[2019-11-24] MEDS ORDERED: ALPRAZolam 0.5 MG TAB PO PRN (09:54)
[2019-11-24] MEDS ORDERED: HEPARIN SODIUM,PORCINE 5,000 UNIT/ML 1 ML VIAL IV PRN (09:56)
[2019-11-24] MEDS ORDERED: HEPARIN SODIUM,PORCINE 5,000 UNIT/ML 1 ML VIAL IV ONE (09:56)
[2019-11-24] MEDS ORDERED: HEPARIN SOD,PORK IN 0.45% NACL 25,000 UNIT in 0.45% NACL 1 250ML.BAG IV SCH (10:00)
[2019-11-24] MEDS: METOPROLOL SUCCINATE (ER) 50 MG TAB.ER.24H PO SCH (10:35)
[2019-11-24 10:36] LABS: Basophils # (A) 0.1 k/uL (0-0.2); Basophils % (A) 1 %; Eosinophils # (A) 0.2 k/uL (0-0.7); Eosinophils % (A) 3 %; Lymphocytes # (A) 1.1 k/uL (1.0-4.8); Lymphocytes % (A) 16 %; MCH 30.9 pg (25.0-35.0); MCHC 33.3 g/dL (31.0-37.0); MCV 92.6 fL (80.0-100.0); Mean Platelet Volume 7.8; Monocytes # (A) 0.6 k/uL (0-1.0); Monocytes % (A) 9 %; Neutrophils # (A) 4.7 k/uL (1.3-7.7); Neutrophils % (A) 69 %; Platelet Count 231 k/uL (150-450); RBC 4.53 m/uL (4.30-5.90); RDW 14.3 % (11.5-15.5); WBC 6.7 k/uL (3.8-10.6)
[2019-11-24 10:54] LABS: Partial Thromboplastin Time 22.3 sec (22.0-30.0)
--- NOTE | 2019-11-24 13:50 | ECHOF ---
Referral Reason:LVF MEASUREMENTS -------- HEIGHT: 182.9 cm WEIGHT: 119.7 kg BP: 140/74 RVIDd: 4.5 cm (< 3.3) IVSd: 1.5 cm (0.6 - 1.1) LVIDd: 6.0 cm (3.9 - 5.3) LVPWd: 1.6 cm (0.6 - 1.1) IVSs: 1.9 cm LVIDs: 5.1 cm LVPWs: 1.7 cm LAESV Index (A-L): 35.32 ml/m Ao Diam: 3.5 cm (2.0 - 3.7) AV Cusp: 1.8 cm (1.5 - 2.6) MV EXCURSION: 20.195 mm (> 18.000) MV EF SLOPE: 84 mm/s (70 - 150) EPSS: 1.6 cm MV E Manny: 0.97 m/s MV DecT: 208 ms MV A Manny: 0.64 m/s MV E/A Ratio: 1.52 RAP: 5.00 mmHg RVSP: 14.41 mmHg FINDINGS -------- This was a technically difficult study with suboptimal apical views. The left ventricle is mildly dilated. There is moderate concentric left ventricular hypertrophy. Overall left ventricular systolic function is moderate-severely impaired with, an EF between 30 - 35 %. Mitral Doppler inflow pattern suggests diastolic filling abnormality 13.09. Basal lateral LV w all motion is hypokinetic. Mid lateral LV wall motion is hypokinetic. The right ventricle is moderately enlarged. LA is moderately dilated 34-39 ml/m2 The right atrial size is normal. 5.0mg of Lumason was utilized for enhancement of images Interatrial and interventricular septum intact. There is no evidence of aortic regurgitation. There is no evidence of aortic stenosis. Mild mitral regurgitation is present. Mild tricuspid regurgitation present. There is no evidence of pulmonary hypertension. The right v entricular systolic pressure, as measured by Doppler, is 14.41mmHg. There is no pulmonic regurgitation present. The aortic root size is normal. IVC Not well visulized. There is no pericardial effusion. CONCLUSIONS -------- 1. This was a technically difficult study with suboptimal apical views. 2. The left ventricle is mildly dilated. 3. There is moderate concentric left ventricular hypertrophy. 4. Overall left ventricular systolic function is moderate-severely impaired with, an EF between 30 - 35 %. 5. Mitral Doppler inflow pattern suggest diastolic filling abnormality 13.09. 6. Basal lateral LV wall motion is hypokinetic. 7. Mid lateral LV wall motion is hypokinetic. 8. The right ventricle is moderately enlarged. 9. LA is moderately dilated 34-39 ml/m2 10. The right atrial size is normal. 11. 5.0mg of Lumason was utilized for enhancement of images 12. Interatrial and interventricular septum intact. 13. There is no evidence of aortic regurgitation. 14. There is no evidence of aortic stenosis. 15. Mild mitral regurgitation is present. 16. Mild tricuspid regurgitation present. 17. There is no evidence of pulmonary hypertension. 18. The right ventricular systolic pressure, as measured by Doppler, is 14.41mmHg. 19. There is no pulmonic regurgitation present. 20. The aortic root size is normal. 21. IVC Not well visulized. 22. There is no pericardial effusion. DANCE STUDIO MANAGER: Dee Hidalgo RDCS
--- NOTE | 2019-11-24 15:50 | P.HPIM ---
History of Present Illness H&P Date: 11/24/19 Chief Complaint: Nearly passed out History of presenting complaint: This is a pleasant 74-year-old patient of Dr. Ashlee Shukla. Chronic stable medical conditions include hypertension, osteoarthritis, chronic left leg lymphedema, mild macular degeneration both the eyes. Patient had a prior gastric bypass surgery. Patient was indicated large lacunar chorda supervising a younger person. He felt a tingling sensation, all over and he nearly passed out. If that so was for a very short time for a few seconds. This was witnessed. EMS arrived. No chest pain. He just felt a bit funny things was shortly disorientated. Patient's shoulder. A. fib by the EMS with a rate up to 120s. Patient thinks is had to 3 episodes like this in the past COURSE of years. In the ER patient started and IV Cardizem. Review of systems: GEN.: Tired EYES: None HEENT: None NECK: None RESPIRATORY: None CARDIOVASCULAR: As above GASTROINTESTINAL: None GENITOURINARY: None MUSCULOSKELETAL: Some joint pains LYMPHATICS: None HEMATOLOGICAL: None PSYCHIATRY: None NEUROLOGICAL: Nonfocal] Past medical history to include: Atrial fibrillation, hypertension, osteoarthritis, left leg necrotizing fasciitis, chronic left leg lymphedema, mild macular degeneration Social history: Patient started to the smoke age of 14 to pack a day stopped in 2002. No significant alcohol history. Lives with a friend call Yossi Physical examination: VITAL SIGNS: 98, 112, 18, 124/80, 97% room air GENERAL: BMI 35.9, sitting up, awake. EYES: Pupils equal. Conjunctiva normal. HEENT: External appearance of nose and ears normal, oral cavity grossly normal. NECK: JVD not raised; masses not palpable. HEART: Heart sounds irregular, no edema. LUNGS: Respiratory rate normal; clear to auscultation. ABDOMEN: Soft, nontender, liver spleen not palpable, no masses palpable. PSYCH: Alert and oriented x3; mood and affect normal. NEUROLOGICAL: Cranial nerves grossly intact; no facial asymmetry, power and sensation grossly intact. LYMPHATICS: No lymph nodes palpable in the axilla and neck INVESTIGATIONS, reviewed in the clinical context: White count 7.9 hemoglobin 40.4 platelets 270 potassium 3.6 creatinine 0.93 Troponin I-0.018, 0.0-3, 0.017 LDL 128 TSH 2.5 UA-negative EKG tracing personally reviewed by me-atrial fibrillation with some PVCs and some nonspecific ST segment changes Chest x-ray film personally reviewed by me-cardiomegaly, lung tim clear 2-D echocardiogram-moderate concentric LVH, EF 30-35% Assessment -Paroxysmal atrial fibrillation with a rapid ventricular rate. She is patient's had asymptomatic A. fib for quite a while. And is paroxysmal. This time patient was symptomatic. Underlying coronary ischemia to be ruled out. -Obesity BMI 35.9 -Essential hypertension -Primary osteoarthritis -Gastric bypass surgery -Hypertensive heart disease -IV heparin monitoring Plan: Patient started on IV heparin. Home medications resumed. Care was discussed with the patient question were answered. Cardiology is planning for a cardiac catheterization tomorrow. Past Medical History Past Medical History: Atrial Fibrillation, Eye Disorder, Hypertension, Osteoarthritis (OA), Pneumonia, Syncope Additional Past Medical History / Comment(s): 1995 streptococcal infection L leg with necrotizing fascitis/sepsis with lower leg cellulitis and ascending lymphangitis, chronic L leg lymphedema, past htn but pt states was taken off meds about a year ago, pneumonia with pleurisy, anemia after gastric bypass surgery, mild macular degeneration bilateral eyes. History of Any Multi-Drug Resistant Organisms: Other MDRO Date of last positivie culture/infection: 1995 MDRO Source:: l leg Past Surgical History: Bariatric Surgery, Joint Replacement, Orthopedic Surgery Additional Past Surgical History / Comment(s): Gastric bypass, bilateral total knee arhtroplasties, R clavicle fracture with screw which was removed when he had R shoulder dislocation/surgery, L groin lymph node removed d/t lymphadenopathy then surgery for L groin hematoma, colonoscopy. Past Anesthesia/Blood Transfusion Reactions: No Reported Reaction Past Psychological History: No Psychological Hx Reported Additional Psychological History / Comment(s): Pt resides alone. He is independent. He enjoys motorcycle riding [place] to [facility]. Smoking Status: Former smoker Past Alcohol Use History: Unable to Obtain Additional Past Alcohol Use History / Comment(s): QUIT SMOKING IN 2002 STARTED AT AGE 14/ SMOKED 1PPD Past Drug Use History: None Reported - Past Family History Mother Family Medical History: Diabetes Mellitus Father Family Medical History: Diabetes Mellitus Medications and Allergies Home Medications Medication Instructions Recorded Confirmed Type Multivitamin [Men's Multi-Vitamin] 1 tab PO DAILY 12/26/13 11/23/19 History Aspirin EC [Ecotrin Low Dose] 81 mg PO DAILY 11/23/19 11/23/19 History Allergies Allergy/AdvReac Type Severity Reaction Status Date / Time No Known Allergies Allergy Verified 11/23/19 19:16 Physical Exam Vitals: Vital Signs Temp Pulse Pulse Resp BP BP Pulse Ox 11/24/19 08:00 98 F 75 17 139/90 98 11/24/19 04:00 98 F 81 18 140/74 96 11/23/19 21:30 97.8 F 68 16 169/82 98 11/23/19 20:59 97.8 F 98 18 125/91 97 11/23/19 19:03 89 18 145/85 97 11/23/19 18:00 111 H 18 146/70 96 11/23/19 17:49 98 F 112 H 18 124/80 97 Intake and Output 11/23/19 11/24/19 11/24/19 22:59 06:59 14:59 Intake Total 672 382.583 Output Total 1100 Balance 672 -1100 382.583 Intake: Intake, IV Titration 82.583 Amount Diltiazem 125 mg In 82.583 Sodium Chloride 0.9% 100 ml @ 5 MG/HR 5 mls/hr IV .Q24H [facility] Rx#:[id number] Oral 672 300 Output: Urine 1100 Other: Voiding Method Toilet Toilet Toilet # Voids 1 Weight 117.934 kg 120.2 kg Results CBC & Chem 7: 11/24/19 10:12 11/23/19 17:51 Labs: Abnormal Lab Results - Last 24 Hours (Table) 11/23/19 11/23/19 11/23/19 Range/Units 17:51 17:51 17:51 APTT 20.7 L (22.0-30.0) sec Sodium 136 L (137-145) mmol/L Glucose 105 H (74-99) mg/dL Total Protein 6.1 L (6.3-8.2) g/dL Triglycerides 151 H (<150) mg/dL LDL Cholesterol, Calc 128 H (0-99) mg/dL HDL Cholesterol 39 L (40-60) mg/dL
[2019-11-25] MEDS: METOPROLOL SUCCINATE (ER) 50 MG TAB.ER.24H PO SCH (05:29)
[2019-11-25] MEDS ORDERED: SODIUM CHLORIDE 0.9% 1,000 ML in EMPTY BAG 1 BAG IV ONE (06:00)
[2019-11-25] MEDS ORDERED: ATORVASTATIN 80 MG TAB PO ONE ×2 (06:00)
[2019-11-25] MEDS ORDERED: ASPIRIN 325 MG TAB PO ONE ×2 (06:00)
[2019-11-25 07:34] VITALS: PULSE 66
[2019-11-25 07:47] LABS: Basophils # (A) 0.1 k/uL (0-0.2); Basophils % (A) 1 %; Eosinophils # (A) 0.4 k/uL (0-0.7); Eosinophils % (A) 6 %; HCT 39.5 % (39.0-53.0); HGB 13.4 gm/dL (13.0-17.5); Lymphocytes # (A) 1.1 k/uL (1.0-4.8); Lymphocytes % (A) 18 %; MCH 31.4 pg (25.0-35.0); MCV 92.4 fL (80.0-100.0); Mean Platelet Volume 7.9; Monocytes # (A) 0.5 k/uL (0-1.0); Monocytes % (A) 8 %; Neutrophils # (A) 3.8 k/uL (1.3-7.7); Neutrophils % (A) 65 %; Platelet Count 215 k/uL (150-450); RBC 4.28 m/uL (4.30-5.90); RDW 14.2 % (11.5-15.5); WBC 5.8 k/uL (3.8-10.6)
[2019-11-25] MEDS ORDERED: LIDOCAINE 1% INJ 10MG/ML (20 ML MDV) ONE (10:04)
[2019-11-25] MEDS ORDERED: fentaNYL (PF) 50 MCG/ML 2 ML AMP ONE (10:04)
[2019-11-25] MEDS ORDERED: MIDAZOLAM 2 MG/2 ML VIAL IVP ONE (10:07)
[2019-11-25] MEDS ORDERED: LIDOCAINE 1% INJ 10MG/ML (20 ML MDV) SQ ONE (10:07)
[2019-11-25] MEDS ORDERED: fentaNYL (PF) 50 MCG/ML 2 ML AMP IVP ONE (10:07)
[2019-11-25] MEDS ORDERED: IV FLUID CONTINUATION 300 ML IV ONE (10:13)
--- NOTE | 2019-11-25 10:56 | CC ---
CARDIAC CATHETERIZATION REPORT INDICATION: Cardiomyopathy with abnormal echo showing wall motion abnormality and paroxysmal atrial fibrillation. PROCEDURE NOTE: After obtaining informed consent, left heart catheterization and coronary angiogram were performed via the right femoral artery using standard Herminia catheters. The patient tolerated the procedure well without any obvious immediate complication. A femoral angiogram was performed and decision was made for manual hemostasis because of the atherosclerotic plaque right at the site of entry into the femoral artery. The patient received moderate conscious sedation. Total sedation time was 14 minutes. FINDINGS: HEMODYNAMICS: Left ventricular end-diastolic pressure is 15-16 mm. There is no significant gradient across the aortic valve. LEFT VENTRICULOGRAM: Not performed. ANGIOGRAPHIC DATA: LEFT MAIN CORONARY ARTERY: Left main coronary artery appears calcified but is free of significant stenosis. Divides into left anterior descending coronary artery and circumflex coronary artery. LEFT ANTERIOR DESCENDING CORONARY ARTERY: LAD shows mild atherosclerotic plaque in its midportion. CIRCUMFLEX CORONARY ARTERY is a nondominant vessel and is free of significant disease. The ramus intermedius is free of significant stenosis. RIGHT CORONARY ARTERY: Right coronary artery is a large dominant vessel. There is mild atherosclerotic plaque in its midportion. CONCLUSION: Mild nonobstructive coronary artery disease in involving the right coronary artery and LAD. PLAN: Patient's management is going to be in the form of medical therapy and his cardiomyopathy is probably nonischemic in origin. MMODL / IJN: [id number] /
[2019-11-25] MEDS ORDERED: RX INFO: IV CONTRAST WAS GIVEN 1 EACH MISC MISCELLANE PRN (12:05)
--- NOTE | 2019-11-25 16:07 | P.PN ---
Progress Note - Text Progress Note Date: 11/25/19 Chief Complaint: Nearly passed out History of presenting complaint: This is a pleasant 74-year-old patient of Dr. Ashlee Shukla. Chronic stable medical conditions include hypertension, osteoarthritis, chronic left leg lymphedema, mild macular degeneration both the eyes. Patient had a prior gastric bypass surgery. 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 He felt a tingling sensation, all over and he nearly passed out. If that so was for a very short time for a few seconds. This was witnessed. EMS arrived. No chest pain. He just felt a bit funny things was shortly disorientated. Patient's shoulder. A. fib by the EMS with a rate up to 120s. Patient thinks is had to 3 episodes like this in the past COURSE of years. In the ER patient started and IV Cardizem. Today-underwent cardiac catheterization. 4 to have mild disease. Postprocedure and resting. Review of systems: Was done for constitutional, cardiovascular, GI, pulmonary. relevant finding as above Active Medications Alprazolam (Xanax) 0.25 mg PO Q6HR PRN PRN Reason: Mild Anxiety Alprazolam (Xanax) 0.5 mg PO Q6HR PRN PRN Reason: Moderate Anxiety Apixaban (Eliquis) 5 mg PO BID [facility] Aspirin (Aspirin) 325 mg PO DAILY [facility] Sodium Chloride (Saline 0.9%) 1,000 mls @ 75 mls/hr IV .[id number] [facility] Metoprolol Succinate (Toprol Xl) 50 mg PO DAILY [facility] Last Admin: 11/25/19 05:29 Dose: 50 mg Documented by: Miscellaneous Information (Rx Info: Iv Contrast Was Given) 1 each MISCELLANE DAILY PRN PRN Reason: Per Protocol Stop: 11/27/19 12:05 Nitroglycerin (Nitrostat) 0.4 mg SUBLINGUAL Q5M PRN PRN Reason: Chest Pain Physical examination: VITAL SIGNS: 97.5, 66, 19, 168/80, 96% room air GENERAL: Laying in bed, comfortable EYES: Pupils equal. Conjunctiva normal. HEENT: External appearance of nose and ears normal, oral cavity grossly normal. NECK: JVD not raised; masses not palpable. HEART: Heart sounds irregular, no edema. LUNGS: Respiratory rate normal; clear to auscultation. ABDOMEN: Soft, nontender, liver spleen not palpable, no masses palpable. PSYCH: Alert and oriented x3; mood and affect normal. INVESTIGATIONS, reviewed in the clinical context: White count 5.8 hemoglobin 13.4 Previous testing White count 7.9 hemoglobin 40.4 platelets 270 potassium 3.6 creatinine 0.93 Troponin I-0.018, 0.0-3, 0.017 LDL 128 TSH 2.5 UA-negative EKG tracing personally reviewed by me-atrial fibrillation with some PVCs and some nonspecific ST segment changes Chest x-ray film personally reviewed by me-cardiomegaly, lung tim clear 2-D echocardiogram-moderate concentric LVH, EF 30-35% Cardiac catheterization-minimal disease Assessment -Paroxysmal atrial fibrillation with a rapid ventricular rate. asymptomatic A. fib for quite a while. And is paroxysmal. This time patient was symptomatic. Cardiac catheterization-reveals minimal disease. -Obesity BMI 35.9 -Essential hypertension -Primary osteoarthritis -Gastric bypass surgery -Hypertensive heart disease -IV heparin monitoring Plan: -Patient be resumed on eliquis A. Other medications to continue. Hopefully can be discharged home tomorrow. Also started on beta anais.
[2019-11-25] MEDS: SODIUM CHLORIDE 0.9% 1,000 ML IV SCH (16:30)
[2019-11-25] MEDS: APIXABAN 5 MG TAB PO SCH (20:33)
[2019-11-26] MEDS: SODIUM CHLORIDE 0.9% 1,000 ML IV SCH (05:23)
[2019-11-26 07:55] LABS: Basophils % (A) 0 %; Eosinophils # (A) 0.1 k/uL (0-0.7); Eosinophils % (A) 1 %; HCT 41.1 % (39.0-53.0); HGB 13.4 gm/dL (13.0-17.5); Lymphocytes # (A) 0.7 k/uL (1.0-4.8); Lymphocytes % (A) 8 %; MCH 29.8 pg (25.0-35.0); MCHC 32.5 g/dL (31.0-37.0); MCV 91.9 fL (80.0-100.0); Mean Platelet Volume 8.2; Monocytes # (A) 0.7 k/uL (0-1.0); Monocytes % (A) 8 %; Neutrophils # (A) 7.4 k/uL (1.3-7.7); Neutrophils % (A) 82 %; Platelet Count 223 k/uL (150-450); RBC 4.48 m/uL (4.30-5.90)
[2019-11-26] MEDS ORDERED: ASPIRIN 325 MG TAB PO SCH (09:00)
[2019-11-26] MEDS: APIXABAN 5 MG TAB PO SCH (09:42)
[2019-11-26] MEDS: METOPROLOL SUCCINATE (ER) 50 MG TAB.ER.24H PO SCH (09:42)
[2019-11-26 09:44] VITALS: BP 157/80; RESP 16; TEMP 98.5
--- NOTE | 2019-11-26 10:50 | P.DS ---
Providers Date of admission: 11/23/19 19:40 Attending physician: Alexis Brannon Consults: 11/23/19 19:39 Consult Physician Urgent Consulting Provider: Mirian Barajas Consult Reason/Comments: syncop Do you want consulting provider notified?: Yes Primary care physician: Harshad Shukla [facility] Course: Diagnoses: -Paroxysmal atrial fibrillation with a rapid ventricular rate. Started on Eliquis -Dizzy spells, Cardiac catheterization-reveals minimal disease. Most likely secondary to A. fib. No more dizziness or syncope/presyncope -Nonischemic cardiomyopathy with ejection fraction 30-35% and moderate left ventricular hypertrophy -Obesity BMI 35.9 -Essential hypertension -Primary osteoarthritis -Gastric bypass surgery -Hypertensive heart disease -IV heparin monitoring Diagnoses: This is a pleasant 74-year-old patient of Dr. Ashlee Shukla. Chronic stable medical conditions include hypertension, osteoarthritis, chronic left leg lymphedema, mild macular degeneration both the eyes. Patient had a prior gastric bypass surgery. Patient presents with dizzy spells. Every 6-7 years, over the last 25 years he had such a DC spells which resolved spontaneously as per patient, this time he has 2 of them 2 days prior to come to the hospital in which he feels numbness all over his face and head associated with embolus and digital disorientation and he has to sit down for 2 minutes and it will go away, then he was for 10-15 minutes more to make sure his stable before he started moving and getting. This time he had a friend with him who called the EMS and patient came to the hospital. Patient has been evaluated by warp changer and he underwent cardiac cath on 11/24 : Mild nonobstructive coronary artery disease of the RCA and LAD. Patient also with paroxysmal atrial fibrillation's with RVR upon admission, he started on metoprolol 50 mg and Eliquis 5 mg twice daily Echocardiogram showing ejection fraction of 30-35% with moderate LVH. Patient also was on aspirin 81 mg,which will be discontinued upon discharge as per warp changer recommendation Over the last 2 days while in hospital patient has no more dizzy spells, no dizziness, no syncope/presyncope, no chest pain or dyspnea. No coughing. No change in urine or bowel habits. No fever. Patient thinks he can go home today. Patient was cleared by warp changer Dr. barr for discharge Problems and management plan were discussed with the patient and he verbalized understanding and acceptance Patient was found stable and can be discharged home however he needs follow-up as an outpatient. Patient was instructed to follow up with PCP Dr. Shukla within one week and patient agrees. Also patient was instructed to follow up with warp changer Dr. bullock 2 weeks and he agrees. pt agrees with his appointments with and on 12/02 Gen: patient is a AAOx3, no distress CVS: S1-S2, RRR, no murmur Lungs: B/L CTA, no wheezing Abdomen: soft, no distention, no tenderness, positive bowel sounds Extremity: no leg edema or induration Time spent more than 35 minutes Patient Condition at Discharge: Fair Plan - Discharge Summary Discharge Rx Participant: Yes New Discharge Prescriptions: New Apixaban [Eliquis] 5 mg PO BID #60 tab Nitroglycerin Sl Tabs [Nitrostat] 0.4 mg SUBLINGUAL Q5M PRN #20 tab PRN Reason: Chest Pain Metoprolol Succinate (ER) [Toprol XL] 50 mg PO DAILY #30 tab.er.24h Continue Multivitamin [Men's Multi-Vitamin] 1 tab PO DAILY Discontinued Aspirin EC [Ecotrin Low Dose] 81 mg PO DAILY Discharge Medication List Multivitamin [Men's Multi-Vitamin] 1 tab PO DAILY 12/26/13 [History] Apixaban [Eliquis] 5 mg PO BID #60 tab 11/26/19 [Rx] Metoprolol Succinate (ER) [Toprol XL] 50 mg PO DAILY #30 tab.er.24h 11/26/19 [Rx] Nitroglycerin Sl Tabs [Nitrostat] 0.4 mg SUBLINGUAL Q5M PRN #20 tab 11/26/19 [Rx] Follow up Appointment(s)/Referral(s): Arnold Bullock MD [STAFF PHYSICIAN] - 12/03/19 1:00 pm (Tuesday) Harshad Shukla DO [Primary Care Provider] - 12/03/19 1:30 pm (Tuesday with [facility] [employer]) Patient Instructions/Handouts: *Surgery [facility] - After Heart Catheterization - Oxygen Equipment Technician Instructions Activity/Diet/Wound Care/Special Instructions: Eliquis is covered by insurance - copay is $25 Heart healthy diet Activity is limited till you see your doctor Discharge Disposition: HOME SELF-CARE
--- NOTE | 2019-11-26 14:18 | PN ---
PROGRESS NOTE Mr. Bledsoe is a gentleman who underwent cardiac cath by Dr. Goldberg yesterday, had mild noncritical disease. He has a cardiomyopathy and paroxysmal atrial fibrillation. He is well anticoagulated. The plan is to discharge the patient today. His right groin is clean and dry with a good pulse and he will see Dr. Goldberg in one week. I am recommending that we discharge him on a no aspirin only apixaban 5 mg b.i.d. He will see Dr. Goldberg in one week and I have reviewed his medications and he will continue the beta anais as well as the atorvastatin. He should also be on an LATASHA inhibitor or an ARB. This will be started today and he can be discharged and see Dr. Goldberg in about a week. Physical exam, there are no new significant findings and vital signs are stable. MMODL / IJN: [id number] /
[2019-11-27] MEDS ORDERED: LOSARTAN 50 MG TAB PO SCH (09:00)
== END 2019-11-26 13:27 | disposition home or self-care (01) | DRG 287 ==
LOC: EC 17:33 → 3SCARD 19:40
PROVIDERS: ADMIT Hospitalist; ATTEND Hospitalist
PROC: B2111ZZ Fluoroscopy of Multiple Coronary Arteries using Low Osmolar Contrast (ICD-10-PCS; 2019-11-25)
PROC: 4A023N7 Measurement of Cardiac Sampling and Pressure, Left Heart, Percutaneous Approach (ICD-10-PCS; principal; 2019-11-25 10:00)
DX: I48.0 Paroxysmal atrial fibrillation (principal); Z11.59 Encounter for screening for other viral diseases; I42.8 Other cardiomyopathies; I11.9 Hypertensive heart disease without heart failure; I48.92 Unspecified atrial flutter; E86.0 Dehydration; I25.10 Atherosclerotic heart disease of native coronary artery without angina pectoris; M19.91 Primary osteoarthritis, unspecified site; H35.30 Unspecified macular degeneration; R79.89 Other specified abnormal findings of blood chemistry; I89.0 Lymphedema, not elsewhere classified; E66.9 Obesity, unspecified; Z68.35 Body mass index [BMI] 35.0-35.9, adult; Z79.82 Long term (current) use of aspirin; Z79.899 Other long term (current) drug therapy; Z87.01 Personal history of pneumonia (recurrent); Z98.84 Bariatric surgery status; Z86.19 Personal history of other infectious and parasitic diseases; Z96.653 Presence of artificial knee joint, bilateral; Z98.890 Other specified postprocedural states; Z87.81 Personal history of (healed) traumatic fracture; Z87.891 Personal history of nicotine dependence; Z83.3 Family history of diabetes mellitus; Z86.718 Personal history of other venous thrombosis and embolism
CPT/HCPCS: 36415; 71046; 80053; 80061; 81003; 83605; 83735; 84100; 84443; 84484; 85025; 85610; 85730; 93005; 93306; 93458; 96365; 96366; 96376; 99291

== ENCOUNTER → 2020-03-27 | Outpatient (CLI) | payer MEDICARE, BC ==
--- NOTE | 2020-03-27 11:25 | XR ---
EXAMINATION TYPE: XR chest 2V DATE OF EXAM: 03/27/2020 COMPARISON: Chest x-ray November 23, 2019. CTA chest March 27, 2019 HISTORY: Productive cough for 1 to 2 days. TECHNIQUE: Frontal and lateral views of the chest are obtained. FINDINGS: There is new right mid lung linear opacity, possible atelectasis versus fluid in fissure l ess well-seen on lateral view. New small to tiny bilateral pleural effusions with blunting of posteri or costophrenic angles. Associated bibasilar compressive atelectasis. The cardiac silhouette size is enlarged. Surgical changes epigastric region redemonstrated. Advanced degenerative change bilateral glenohumeral joints left greater than right redemonstrated. IMPRESSION: Suspect CHF exacerbation as well as there is cardiomegaly with new small to tiny bilater al pleural effusions. Correlate clinically.
== END | disposition home or self-care (01) ==
LOC: RADXRMAIN 11:01
PROVIDERS: ATTEND Family Medicine
DX: J90 Pleural effusion, not elsewhere classified (principal)
CPT/HCPCS: 71046

== ENCOUNTER 2021-01-31 03:13 | Emergency (ER) | payer MEDICARE, BC ==
[2021-01-31 03:17] VITALS: BP 125/71; PULSE 102; RESP 19; TEMP 98
[2021-01-31] MEDS ORDERED: IBUPROFEN 800 MG TAB PO STA (03:30)
[2021-01-31] MEDS ORDERED: ACETAMINOPHEN TAB 500 MG TAB PO STA (03:30)
--- NOTE | 2021-01-31 03:30 | ED ---
Upper Extremity HPI - General Chief Complaint: Extremity Injury, Upper Stated Complaint: Left Arm Injury, Fall Time Seen by Provider: 01/31/21 03:15 Source: patient Mode of arrival: ambulatory - Related Data Home Medications Medication Instructions Recorded Confirmed Multivitamin [Men's Multi-Vitamin] 1 tab PO DAILY 12/26/13 11/23/19 Previous Rx's Medication Instructions Recorded Apixaban [Eliquis] 5 mg PO BID #60 tab 11/26/19 Metoprolol Succinate (ER) [Toprol 50 mg PO DAILY #30 tab.er.24h 11/26/19 XL] Nitroglycerin Sl Tabs [Nitrostat] 0.4 mg SUBLINGUAL Q5M PRN #20 tab 11/26/19 Allergies Allergy/AdvReac Type Severity Reaction Status Date / Time No Known Allergies Allergy Verified 01/31/21 03:17 Review of Systems ROS Statement: Those systems with pertinent positive or pertinent negative responses have been documented in the HPI. ROS Other: All systems not noted in ROS Statement are negative. Past Medical History Past Medical History: Atrial Fibrillation, Eye Disorder, Hypertension, Osteoarthritis (OA), Pneumonia, Syncope Additional Past Medical History / Comment(s): 1995 streptococcal infection L leg with necrotizing fascitis/sepsis with lower leg cellulitis and ascending lymphangitis, chronic L leg lymphedema, past htn but pt states was taken off meds about a year ago, pneumonia with pleurisy, anemia after gastric bypass surgery, mild macular degeneration bilateral eyes. History of Any Multi-Drug Resistant Organisms: Other MDRO Date of last positivie culture/infection: 1995 MDRO Source:: l leg Past Surgical History: Bariatric Surgery, Joint Replacement, Orthopedic Surgery Additional Past Surgical History / Comment(s): Gastric bypass, bilateral total knee arhtroplasties, R clavicle fracture with screw which was removed when he had R shoulder dislocation/surgery, L groin lymph node removed d/t lymphadenopathy then surgery for L groin hematoma, colonoscopy. Past Anesthesia/Blood Transfusion Reactions: No Reported Reaction Past Psychological History: No Psychological Hx Reported Smoking Status: Never smoker Past Alcohol Use History: Unable to Obtain Past Drug Use History: None Reported - Past Family History Mother Family Medical History: Diabetes Mellitus Father Family Medical History: Diabetes Mellitus Course Vital Signs 01/31/21 03:15 Temperature 98 F Pulse Rate 102 H Respiratory 19 Rate Blood Pressure 125/71 O2 Sat by Pulse 98 Oximetry Disposition Clinical Impression: Fall, Contusion of left shoulder Disposition: HOME SELF-CARE Condition: Good Instructions (If sedation given, give patient instructions): Shoulder Pain (ED) Is patient prescribed a controlled substance at d/c from ED?: No Referrals: Harshad Shukla DO [Primary Care Provider] - 1-2 days
--- NOTE | 2021-01-31 03:55 | XR ---
EXAMINATION TYPE: XR humerus LT DATE OF EXAM: 01/31/2021 COMPARISON: NONE HISTORY: Fall. Pain TECHNIQUE: 4 views FINDINGS: There is severe narrowing of the shoulder joint space. Elbow joint is intact. I see no frac ture nor dislocation. There is extensive sclerosis on both sides of the glenohumeral joint. IMPRESSION: Advanced arthritic change in the shoulder joint. No fracture seen.
== END 2021-01-31 04:10 | disposition home or self-care (01) ==
LOC: EC 03:13
DX: S40.012A Contusion of left shoulder, initial encounter (principal); I10 Essential (primary) hypertension; I48.91 Unspecified atrial fibrillation; M19.90 Unspecified osteoarthritis, unspecified site; Z79.01 Long term (current) use of anticoagulants; Z79.899 Other long term (current) drug therapy; Z83.3 Family history of diabetes mellitus; W01.0XXA Fall on same level from slipping, tripping and stumbling without subsequent striking against object, initial encounter
CPT/HCPCS: 99284

== ENCOUNTER 2023-10-18 19:37 | Emergency (ER) | payer MEDICARE, BC ==
[2023-10-18 20:26] LABS: Basophils # (A) 0.1 k/uL (0-0.2); Basophils % (A) 1 %; Eosinophils # (A) 0.1 k/uL (0-0.7); Eosinophils % (A) 2 %; HCT 38.2 % (39.0-53.0); Hypochromasia Slight; Lymphocytes # (A) 0.4 k/uL (1.0-4.8); Lymphocytes % (A) 7 %; MCH 27.8 pg (25.0-35.0); MCHC 31.4 g/dL (31.0-37.0); MCV 88.7 fL (80.0-100.0); Mean Platelet Volume 8.7; Monocytes # (A) 0.6 k/uL (0-1.0); Monocytes % (A) 10 %; Neutrophils # (A) 4.4 k/uL (1.3-7.7); Neutrophils % (A) 79 %; Platelet Count 198 k/uL (150-450); RBC 4.31 m/uL (4.30-5.90); RDW 15.5 % (11.5-15.5); WBC 5.6 k/uL (3.8-10.6)
[2023-10-18 20:34] LABS: INR 1.2 (<1.2); Partial Thromboplastin Time 26.6 sec (22.0-30.0); Prothrombin Time 12.4 sec (10.0-12.5)
[2023-10-18 20:36] LABS: ALT 15 U/L (4-49); AST 22 U/L (17-59); African American GFR (CKD) >90 (>60 ml/min/1.73 sqM); Albumin 4.3 g/dL (3.5-5.0); Alkaline Phosphatase 79 U/L (38-126); Anion Gap 6 mmol/L; Blood Urea Nitrogen 7 mg/dL (9-20); Calcium 8.6 mg/dL (8.4-10.2); Carbon Dioxide 28 mmol/L (22-30); Chloride 100 mmol/L (98-107); Glucose 101 mg/dL (74-99); Non-African American GFR(CKD) 88 (>60 ml/min/1.73 sqM); Potassium 4.3 mmol/L (3.5-5.1); Sodium 134 mmol/L (137-145); Total Bilirubin 1.3 mg/dL (0.2-1.3); Total Protein 6.9 g/dL (6.3-8.2)
[2023-10-18 20:45] LABS: NT-Pro-B-Type Natriuretic Pept 4480 pg/mL
[2023-10-18] MEDS: FUROSEMIDE 10 MG/ML 4 ML VIAL IV STA (22:16)
[2023-10-18 22:37] VITALS: TEMP 98.8
--- NOTE | 2023-10-18 22:48 | ED ---
SOB HPI - General Chief Complaint: Shortness of Breath Stated Complaint: SoB Time Seen by Provider: 10/18/23 21:39 Source: patient Mode of arrival: ambulatory Limitations: no limitations - History of Present Illness Initial Comments: This patient is an 78-year-old man who presents to evaluation for shortness of breath that has been getting progressively worse over the past 2 to 3 days. The patient denies chest pain. The patient states that this is similar to previous episodes he has had when his atrial fibrillation flares up. Patient denies palpitations, chest pain, diaphoresis, nausea or vomiting. The patient states that the shortness of breath is mainly exertional. He also does have some bilateral lower extremity edema but states that this has been chronic for many years MD Complaint: shortness of breath Onset/Timin -: days(s) Severity scale (1-10): 0 Consistency: constant, now resolved Improves With: rest Worsens With: exertion Known History Of: other (Atrial fibrillation) Associated Symptoms: denies other symptoms Treatments Prior to Arrival: none - Related Data Home Oxygen Therapy: No Home Medications Medication Instructions Recorded Confirmed Multivitamin [Men's Multi-Vitamin] 1 tab PO DAILY 12/26/13 11/23/19 Previous Rx's Medication Instructions Recorded Apixaban [Eliquis] 5 mg PO BID #60 tab 11/26/19 Metoprolol Succinate (ER) [Toprol 50 mg PO DAILY #30 tab.er.24h 11/26/19 XL] Nitroglycerin Sl Tabs [Nitrostat] 0.4 mg SUBLINGUAL Q5M PRN #20 tab 11/26/19 Furosemide [Lasix] 20 mg PO BID #6 tab 10/18/23 Allergies Allergy/AdvReac Type Severity Reaction Status Date / Time No Known Allergies Allergy Verified 10/18/23 20:04 Review of Systems ROS Statement: Those systems with pertinent positive or pertinent negative responses have been documented in the HPI. ROS Other: All systems not noted in ROS Statement are negative. Constitutional: Denies: fever, chills, weakness Respiratory: Reports: dyspnea. Denies: cough Cardiovascular: Reports: dyspnea on exertion. Denies: chest pain, palpitations, edema, syncope Gastrointestinal: Denies: abdominal pain, nausea, vomiting, diarrhea Genitourinary: Denies: dysuria, hematuria Musculoskeletal: Denies: back pain Skin: Denies: rash Neurological: Denies: headache, weakness, numbness Past Medical History Past Medical History: Atrial Fibrillation, Heart Failure, Eye Disorder, Hypert ension, Osteoarthritis (OA), Pneumonia, Syncope Additional Past Medical History / Comment(s): 1995 streptococcal infection L leg with necrotizing fascitis/sepsis with lower leg cellulitis and ascending lymphangitis, chronic L leg lymphedema, past htn but pt states was taken off meds about a year ago, pneumonia with pleurisy, anemia after gastric bypass surgery, mild macular degeneration bilateral eyes. History of Any Multi-Drug Resistant Organisms: Other MDRO Date of last positivie culture/infection: 1995 MDRO Source:: l leg Past Surgical History: Bariatric Surgery, Joint Replacement, Orthopedic Surgery Additional Past Surgical History / Comment(s): Gastric bypass, bilateral total knee arhtroplasties, R clavicle fracture with screw which was removed when he had R shoulder dislocation/surgery, L groin lymph node removed d/t lymphadenopathy then surgery for L groin hematoma, colonoscopy. Past Anesthesia/Blood Transfusion Reactions: No Reported Reaction Past Psychological History: No Psychological Hx Reported Smoking Status: Never smoker Past Alcohol Use History: Unable to Obtain Past Drug Use History: None Reported - Past Family History Mother Family Medical History: Diabetes Mellitus Father Family Medical History: Diabetes Mellitus General Exam Limitations: no limitations General appearance: alert, in no apparent distress Head exam: Present: atraumatic, normocephalic Eye exam: Present: normal appearance. Absent: scleral icterus, conjunctival injection Neck exam: Present: normal inspection Respiratory exam: Present: rales (Bilateral bases). Absent: respiratory distress, wheezes, rhonchi, stridor, accessory muscle use Cardiovascular Exam: Present: irregular rhythm, normal heart sounds. Absent: systolic murmur, diastolic murmur, rubs, gallop GI/Abdominal exam: Present: soft. Absent: distended, tenderness, guarding, rebound, rigid, mass Extremities exam: Present: normal inspection, normal capillary refill, pedal edema. Absent: calf tenderness Back exam: Present: normal inspection. Absent: CVA tenderness (R), CVA tenderness (L) Neurological exam: Present: alert Skin exam: Present: warm, dry, intact, normal color. Absent: rash Course Vital Signs 10/18/23 10/18/23 10/18/23 20:01 21:53 22:22 Temperature 100.4 F H 98.8 F Pulse Rate 96 106 H 93 Respiratory 20 19 19 Rate Blood Pressure 159/81 148/104 163/102 O2 Sat by Pulse 96 97 96 Oximetry 10/18/23 23:02 Temperature Pulse Rate 99 Respiratory 18 Rate Blood Pressure 154/76 O2 Sat by Pulse 95 Oximetry Medical Decision Making - Medical Decision Making Patient is an 78-year-old man with history and physical suggestive of congestive heart failure. The workup also supports this diagnosis. The patient states that he had previously taken Lasix but has not for some time as he was not having symptoms. Will prescribe short course of this. The patient is offered admission but declines states that he is feeling better and would like to go home. We discussed appropriate further care and follow-up as well as return parameters The patient had chest x-ray which I interpreted as showing cardiomegaly with early CHF change Was pt. sent in by a medical professional or institution (, PA, SCHOOL PSYCHOLOGIST, urgent care, hospital, or detention...) When possible be specific @ -[No] Did you speak to anyone other than the patient for history (EMS, parent, family, police, friend...)? What history was obtained from this source @ -[No] Did you review nursing and triage notes (agree or disagree)? Why? @ -[I reviewed and agree with nursing and triage notes] Were old charts reviewed (outside hosp., previous admission, EMS record, old EKG, old radiological studies, urgent care reports/EKG's, detention records)? Report findings @ -[No old charts were reviewed] Differential Diagnosis (chest pain, altered mental status, abdominal pain women, abdominal pain men, vaginal bleeding, weakness, fever, dyspnea, syncope, headache, dizziness, GI bleed, back pain, seizure, CVA, palpatations, mental health, musculoskeletal)? @ -[Differential Dyspnea: Coronary syndrome, arrhythmia, tamponade, asthma, COPD, pulmonary embolism, pneumonia, pneumothorax, pulmonary effusion, anaphylaxis, diabetic ketoacidosis, flailed chest, pulmonary contusion, diaphragmatic rupture, anemia, neuromuscular, this is not meant to be an all-inclusive list. EKG interpreted by me (3pts min.). @ -[I interpreted as above] X-rays interpreted by me (1pt min.). @ -[I interpreted as above CT interpreted by me (1pt min.). @ -[None done] U/S interpreted by me (1pt. min.). @ -[None done] What testing was considered but not performed or refused? (CT, X-rays, U/S, labs)? Why? @ -[None] What meds were considered but not given or refused? Why? @ -[None] Did you discuss the management of the patient with other professionals (professionals i.e. DrJeremy, PA, SCHOOL PSYCHOLOGIST, lab, RT, psych nurse, older adult social work specialist, high school sports coach, teacher, staff electronic warfare officer, mattress spring encaser)? Give summary @ -[No] Was smoking cessation discussed for >3mins.? @ -[No] Was critical care preformed (if so, how long)? @ -[No] Were there social determinants of health that impacted care today? How? (Homelessness, low income, unemployed, alcoholism, drug addiction, transportation, low edu. Level, literacy, decrease access to med. care, residential, rehab)? @ -[No] Was there de-escalation of care discussed even if they declined (Discuss DNR or withdrawal of care, Hospice)? DNR status @ -[No] What co-morbidities impacted this encounter? (DM, HTN, Smoking, COPD, CAD, Cancer, CVA, ARF, Chemo, Hep., AIDS, mental health diagnosis, sleep apnea, morbid obesity)? @ -[History of congestive heart failure, pretension Was patient admitted / discharged? Hospital course, mention meds given and route, prescriptions, significant lab abnormalities, going to OR and other pertinent info. @ -[See the note above Undiagnosed new problem with uncertain prognosis? @ -[No] Drug Therapy requiring intensive monitoring for toxicity (Heparin, Nitro, Insulin, Cardizem)? @ -[No] Were any procedures done? @ -[No] Diagnosis/symptom? @ -[Acute exacerbation of congestive heart failure Acute, or Chronic, or Acute on Chronic? @ -[Acute Uncomplicated (without systemic symptoms) or Complicated (systemic symptoms)? @ -[default] Side effects of treatment? @ -[No] Exacerbation, Progression, or Severe Exacerbation? @ -[Exacerbation Poses a threat to life or bodily function? How? (Chest pain, USA, MT, pneumonia, PE, COPD, DKA, ARF, appy, cholecystitis, CVA, Diverticulitis, Homicidal, Suicidal, threat to staff... and all critical care pts) @ -[Yes there is risk, patient understands and will have close follow-up, agrees to return if any change in condition or no improvement - Lab Data Result diagrams: 10/18/23 20:15 10/18/23 20:15 Lab Results 10/18/23 10/18/23 10/18/23 Range/Units 20:15 20:15 20:15 WBC 5.6 (3.8-10.6) k/uL RBC 4.31 (4.30-5.90) m/uL Hgb 12.0 L (13.0-17.5) gm/dL Hct 38.2 L (39.0-53.0) % MCV 88.7 (80.0-100.0) fL MCH 27.8 (25.0-35.0) pg MCHC 31.4 (31.0-37.0) g/dL RDW 15.5 (11.5-15.5) % Plt Count 198 (150-450) k/uL MPV 8.7 Neutrophils % 79 % Lymphocytes % 7 % Monocytes % 10 % Eosinophils % 2 % Basophils % 1 % Neutrophils # 4.4 (1.3-7.7) k/uL Lymphocytes # 0.4 L (1.0-4.8) k/uL Monocytes # 0.6 (0-1.0) k/uL Eosinophils # 0.1 (0-0.7) k/uL Basophils # 0.1 (0-0.2) k/uL Hypochromasia Slight PT 12.4 (10.0-12.5) sec INR 1.2 H (<1.2) APTT 26.6 (22.0-30.0) sec Sodium 134 L (137-145) mmol/L Potassium 4.3 (3.5-5.1) mmol/L Chloride 100 (98-107) mmol/L Carbon Dioxide 28 (22-30) mmol/L Anion Gap 6 mmol/L BUN 7 L (9-20) mg/dL Creatinine 0.73 (0.66-1.25) mg/dL Est GFR (CKD-EPI)AfAm >90 (>60 ml/min/1.73 sqM) Est GFR (CKD-EPI)NonAf 88 (>60 ml/min/1.73 sqM) Glucose 101 H (74-99) mg/dL Plasma Lactic Acid Chance (0.7-2.0) mmol/L Calcium 8.6 (8.4-10.2) mg/dL Total Bilirubin 1.3 (0.2-1.3) mg/dL AST 22 (17-59) U/L ALT 15 (4-49) U/L Alkaline Phosphatase 79 (38-126) U/L Troponin I (0.000-0.034) ng/mL NT-Pro-B Natriuret Pep 4480 pg/mL Total Protein 6.9 (6.3-8.2) g/dL Albumin 4.3 (3.5-5.0) g/dL Influenza Type A (PCR) (Not Detectd) Influenza Type B (PCR) (Not Detectd) RSV (PCR) (Not Detectd) SARS-CoV-2 (PCR) (Not Detectd) 10/18/23 10/18/23 10/18/23 Range/Units 20:15 20:15 22:14 WBC (3.8-10.6) k/uL RBC (4.30-5.90) m/uL Hgb (13.0-17.5) gm/dL Hct (39.0-53.0) % MCV (80.0-100.0) fL MCH (25.0-35.0) pg MCHC (31.0-37.0) g/dL RDW (11.5-15.5) % Plt Count (150-450) k/uL MPV Neutrophils % % Lymphocytes % % Monocytes % % Eosinophils % % Basophils % % Neutrophils # (1.3-7.7) k/uL Lymphocytes # (1.0-4.8) k/uL Monocytes # (0-1.0) k/uL Eosinophils # (0-0.7) k/uL Basophils # (0-0.2) k/uL Hypochromasia PT (10.0-12.5) sec INR (<1.2) APTT (22.0-30.0) sec Sodium (137-145) mmol/L Potassium (3.5-5.1) mmol/L Chloride (98-107) mmol/L Carbon Dioxide (22-30) mmol/L Anion Gap mmol/L BUN (9-20) mg/dL Creatinine (0.66-1.25) mg/dL Est GFR (CKD-EPI)AfAm (>60 ml/min/1.73 sqM) Est GFR (CKD-EPI)NonAf (>60 ml/min/1.73 sqM) Glucose (74-99) mg/dL Plasma Lactic Acid Chance 1.3 (0.7-2.0) mmol/L Calcium (8.4-10.2) mg/dL Total Bilirubin (0.2-1.3) mg/dL AST (17-59) U/L ALT (4-49) U/L Alkaline Phosphatase (38-126) U/L Troponin I <0.012 (0.000-0.034) ng/mL NT-Pro-B Natriuret Pep pg/mL Total Protein (6.3-8.2) g/dL Albumin (3.5-5.0) g/dL Influenza Type A (PCR) Detected A (Not Detectd) Influenza Type B (PCR) Not Detected (Not Detectd) RSV (PCR) Not Detected (Not Detectd) SARS-CoV-2 (PCR) Not Detected (Not Detectd) - EKG Data -: EKG Interpreted by Co EKG shows normal: axis (Normal), intervals (Normal) Rate: normal (Approximately 90 bpm) Interpretation: nonspecific ST-T wave changes, other (Underlying rhythm appears to be atrial fibrillation) Disposition Clinical Impression: CHF (congestive heart failure) Disposition: HOME SELF-CARE Condition: Good Instructions (If sedation given, give patient instructions): Heart Failure (DC) Prescriptions: Furosemide [Lasix] 20 mg PO BID #6 tab Is patient prescribed a controlled substance at d/c from ED?: No Referrals: Harshad Shukla DO [Primary Care Provider] - 1-2 days
[2023-10-18 23:03] VITALS: BP 154/76; PULSE 99; RESP 18
--- NOTE | 2023-10-18 23:52 | XR ---
EXAMINATION TYPE: XR chest 2V DATE OF EXAM: 10/18/2023 8:39 PM CLINICAL INDICATION:Male, 78 years old with history of difficulty breathing; [facility] COMPARISON: 03/27/2020 TECHNIQUE: XR chest 2V. Frontal and lateral views of the chest.. FINDINGS: Cardiomediastinal silhouette is stable. Heart is mildly enlarged. Mild pulmonary vascular congestion similar to before. No overt pulmonary edema. Cardio phrenic angles are slightly blunted, similar to before, could suggest minimal effusions. There is mild thin opacity again seen in the right midlung zone less conspicuous than before, may represen t scarring. No focal consolidation, or visible pneumothorax. Osseous structures are grossly unchanged. An acute bony abnormality is not identified. Degenerative c hanges of the left more than right shoulder again noted. IMPRESSION: Overall similar appearance of the chest, could be related to minimal CHF. Otherwise, no acute process evident.
== END 2023-10-18 23:03 | disposition home or self-care (01) ==
LOC: EC 19:37
DX: I11.0 Hypertensive heart disease with heart failure (principal); I50.9 Heart failure, unspecified
CPT/HCPCS: 99285 ×2; 96374 ×2; 36415; 93005; 83880; 80053; 83605; 84484; 85025; 85610; 85730; 87636; 71046; J1940

== ENCOUNTER → 2024-09-19 | Outpatient (CLI) | payer MEDICARE ==
--- NOTE | 2024-09-19 12:50 | US ---
EXAMINATION TYPE: US venous doppler duplex LE LT DATE OF EXAM: 09/19/2024 12:30 PM COMPARISON: Left lower extremity venous ultrasound 03/28/2019, 03/26/2019 CLINICAL INDICATION: Male, 79 years old with history of M79.89 SPECIFIED SOFT TISSUE DISORDERS; no hx of dvt, left leg swelling, no pain, tightness feeling, currently on blood thinners, just ran out, wa iting for prescription , Pain TECHNIQUE: The lower extremity deep venous system is examined utilizing real time linear array sonog isaiah with graded compression, color doppler sonography, and spectral doppler. SIDE PERFORMED: Left FINDINGS: VESSELS IMAGED: Common Femoral Vein Deep Femoral Vein Greater Saphenous Vein * Femoral Vein Popliteal Vein Small Saphenous Vein * Proximal Calf Veins (* superficial vessels) Left Leg: appears negative for dvt , Color Doppler imaging shows patency of the vessels. Spectral wa veforms are within normal limits. IMPRESSION: No evidence of deep vein thrombosis of the left lower extremity. [facility], , 09/19/2024 12:47 PM
--- NOTE | 2024-09-19 12:57 | XR ---
EXAMINATION TYPE: XR chest 2V DATE OF EXAM: 09/19/2024 12:53 PM COMPARISON: Chest radiographs from 10/18/2023 TECHNIQUE: XR chest 2V Frontal and lateral views of the chest. CLINICAL INDICATION:Male, 79 years old with history of I509 HEART FAILURE; FINDINGS: Lungs/Pleura: No pleural effusion. Bibasilar subsegmental atelectasis. No pleural effusions. Pulmonary vascularity: Unremarkable. Heart/mediastinum: Cardiomediastinal silhouette is enlarged and stable. Musculoskeletal: No acute osseous pathology. IMPRESSION: Cardiomegaly with bibasilar subsegmental atelectasis. [facility], , 09/19/2024 12:55 PM
== END | disposition home or self-care (01) ==
LOC: RADUSWWP 12:03
PROVIDERS: ATTEND Family Medicine
DX: I50.9 Heart failure, unspecified (principal); J98.11 Atelectasis; I51.7 Cardiomegaly; M79.89 Other specified soft tissue disorders
CPT/HCPCS: 71046

== ENCOUNTER → 2024-09-20 | Outpatient (CLI) | payer MEDICARE ==
[2024-09-20 18:00] LABS: African American GFR (CKD) >90 (>60 ml/min/1.73 sqM); Blood Urea Nitrogen 11 mg/dL (9-20); Non-African American GFR(CKD) 83 (>60 ml/min/1.73 sqM)
--- NOTE | 2024-09-20 19:02 | CT ---
EXAMINATION TYPE: CT angio chest DATE OF EXAM: 09/20/2024 6:24 PM COMPARISON: 03/27/2019 CLINICAL INDICATION: Male, 79 years old with history of R79.89 Other specified abnormal findings of b lood, Elevated d-dimer., TECHNIQUE: CT of the chest is performed on a spiral scan at 2 mm thick sections. Study is performed with intravenous contrast timed for evaluation for pulmonary embolism. This will limit additional po rtions of the evaluation. 10mm MIP images reconstructed by the technologist are reviewed on the comp uter in the coronal and sagittal planes. Contrast used:100 ml mL of Isovue 370 with IV Contrast, (none if empty) Oral contrast used: (none if empty) CT DLP: 627.7 mGycm, Automated exposure control for dose reduction was used. FINDINGS: No persistent filling defects are evident to suggest an acute pulmonary embolism. There is a 1.2 cm lymph node in the left hilar region. Series 4 image 68r 1.3 cm subcarinal lymph nod e is present. Some shotty lymphadenopathy is within the aortopulmonic window pretracheal space measur es 1.2 cm pretracheal space in the upper region The ascending aorta diameter at the level of the main pulmonary artery is 3.7 cm. The main pulmonary artery diameter at the bifurcation is 2.4r cm. Punctate densities in the posterior right lung. Series 5 image 22. There is a 0.4 cm posterior lateral right upper lung field nodule, series 5 image 56. There is a 0.5 cm nodule adjacent, series 5 image 54. A 0.6 cm nodule slightly inferior, series 5 image 58. Punctate peripheral nodule is on the left. Series 5 image 58 scattered small nodules are within the right pos terior upper lung field on the example series 5 image 60. Additional small nodules are within the sup erior segment right lower lobe. Sample images series 5 image 77. There is some increased density with in the lateral right midlung. Infiltrate and underlying nodules could be considered. Example series 5 image 93. There is a 1.8 cm nodule right middle lobe adjacent to the major fissure. Series 5 image 107. An alexa tional larger nodule measuring 1.4 cm cyst in the posterior right lung. Moderate coronary artery calcifications present. Limited CT sections were through the upper abdomen. Upper abdomen appears unremarkable. IMPRESSION: 1. Multiple new nodules identified within the right lung with enlarged mediastinal and hilar lymphade nopathy. Findings are suspicious for metastatic disease. Consider PET CT for additional evaluation. 2. No acute pulmonary embolism. A [place] critical message alert has been initiated for Harshad Shukla DO via the [employer] Critical Results System on 09/20/2024 7:00 PM. This message alert has been sent to Harshad Shukla DO via the preferences provided by the clinician for the receipt of Radiology Critical Findings. [facility] ID [id number]. [facility], Workstation: [facility], 09/20/2024 7:00 PM
== END | disposition home or self-care (01) ==
LOC: RADCTMAIN 17:03
PROVIDERS: ATTEND Family Medicine
DX: R91.8 Other nonspecific abnormal finding of lung field (principal); R79.89 Other specified abnormal findings of blood chemistry; R59.0 Localized enlarged lymph nodes
CPT/HCPCS: 71275; 82565; 84520

== ENCOUNTER → 2024-11-02 | Outpatient (CLI) | payer MEDICARE ==
--- NOTE | 2024-11-04 21:51 | PE ---
EXAMINATION TYPE: PET CT fusion skull to thigh DATE OF EXAM: 11/02/2024 COMPARISON: CTA chest 09/20/2024 Prior PET/CT: None at this location CLINICAL INDICATION: Male, 79 years old with history of R91.1 nodule, TECHNIQUE: Following the intravenous administration of 9.43 mCi of F-18 FDG, whole body images are p erformed PET CT fusion skull to thigh. Images are reviewed on the computer in the coronal, axial, an d sagittal planes. Reconstructed rotating images are created on independent workstation and reviewed on the computer. A localization and attenuation correction CT is performed in conjunction with the PET scan. DLP: 1745 mGycm SCAN: Initial Blood glucose: 103 mg/dL Average Mediastinum SUV: 2.23 Average Liver SUV: 3.01 FINDINGS: NECK: No abnormal uptake. No suspicious lymph node uptake evident. Area epiglottic fold is without i ncreased signal. Direct Visualization recommended. THORAX: No abnormal uptake ABDOMEN: No abnormal uptake PELVIS: No abnormal uptake. Uptake within the prominent inguinal adenopathy present bilaterally is be low baseline without suspicious uptake. OSSEOUS STRUCTURES: No abnormal uptake LOCALIZATION CT: Shotty lymphadenopathy in the mediastinum. Moderate coronary artery calcification is present. Heart size is at the upper limits for normal. Hiatal hernia is present. Prostate is promine nt. COMPARISON: Area of epiglottic fold prominence remains present on the current exam. No increased radi otracer in this region. IMPRESSION: 1. No suspicious radiotracer accumulation. 2. Persistence of the area epiglottic fold prominence. Direct visualization recommended. 3. There are a couple of bilateral inguinal lymph nodes which are prominent but do not have abnormal uptake which may be inflammatory in nature. [facility], , 11/04/2024 9:49 PM
== END | disposition home or self-care (01) ==
LOC: RADPETMAIN 10:40
PROVIDERS: ATTEND Internal Medicine Critical Care Medicine
DX: R91.1 Solitary pulmonary nodule (principal); R93.89 Abnormal findings on diagnostic imaging of other specified body structures
CPT/HCPCS: 78815; A9552

== ENCOUNTER → 2024-11-20 | Day surgery (SDC) | payer MEDICARE ==
[~2024-11-20] MED LIST changes: +ATROPINE SULFATE 0.4 MG/ML 1 ML VIAL IM ONE; -DEXAMETHASONE SOD PHOSPHATE 10 MG/ML 1 ML VIAL IV ONE; -HYDROmorphone 0.5 MG/0.5 ML SYRINGE IVP PRN; +LACTATED RINGERS 1,000 ML IV SCH; +LIDOCAINE 1% INJ 10MG/ML (20 ML MDV) ONE; -MIDAZOLAM 2 MG/2 ML VIAL IV PRN; -ONDANSETRON 4 MG/2 ML VIAL IVP ONE; +PROPOFOL 10 MG/ML 20 ML VIAL IV ONE
[2024-11-20] MEDS: IV FLUID CONTINUATION 1,000 ML IV ONE (12:56)
[2024-11-20 13:21] VITALS: TEMP 97.8
[2024-11-20 13:25] LABS: Glucose,Whole Blood 100 mg/dL (70-110)
[2024-11-20] MEDS: LIDOCAINE 2% GLYDO JELLY 6 ML APPL MISCELLANE ONE ×2 (13:42→13:45)
[2024-11-20] MEDS: LIDOCAINE 2% INJ 20 MG/ML INTRATRACH ONE ×2 (13:43→13:46)
[2024-11-20 14:01] VITALS: PULSE 88; RESP 16
[2024-11-20 14:17] VITALS: BP 130/70
--- NOTE | 2024-11-20 15:38 | PCN ---
PROCEDURE NOTE PROCEDURE: Bronchoscopy, airway examination, and therapeutic lavage without BAL. PREOPERATIVE DIAGNOSIS: Abnormal PET scan in the area of hypopharynx. POSTOPERATIVE DIAGNOSIS: Abnormal PET scan in the area of hypopharynx. The patient's procedure took place in [facility] room #1. There was informed consent and universal timeout. DESCRIPTION OF PROCEDURE: Anesthesia provided monitored anesthesia care. After the patient was adequately sedated and being fully monitored, the bronchoscope was inserted through the right nostril. It passed through the right nasopharynx into the oropharynx. The hypopharynx was identified and evaluated carefully. All the hypopharyngeal structures appeared normal including the epiglottis, vallecula, vocal cords, true and false, anterior commissure, piriform sinuses, right and left, etc. I do not see any distinct abnormalities or lesions in this area. Next, the glottic opening was topicalized. The bronchoscope was pushed through the glottic opening into the trachea. The trachea appeared relatively normal. 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 The tracheal danielle was sharp. The right and left mainstem were topicalized. The right upper lobe and its 3 segments, right middle lobe and its 2 segments, the right lower lobe and its 5 segments all appeared relatively normal. There was mild bronchitis throughout. There was mild erythema of the airways. There was no distinct mass or tumor. On the left side, left upper lobe and its 2 segments, the lingula and its 2 segments and left lower lobe and its 4 segments all had similar findings of mild diffuse bronchitis with erythema. No distinct mass or tumor was noted. No significant secretions were noted. The bronchoscope was slowly pulled back up into the distal trachea. From there, we again evaluated the trachea, throughout, there were no abnormalities noted. Next, we sat right above the vocal cords, and again evaluated the area of the hypopharynx very closely. The anterior commissure, was normal. Vocal cords through false were normal. Epiglottis was normal. The vallecula was also normal. The piriform sinuses right and left were normal. The arytenoids right and left were normal. I did not see any abnormalities to speak of. The picture was taken. The bronchoscope was completely withdrawn and the patient will be recovered. I did speak to the patient's daughter, Chela, after the procedure. The patient will follow with me in the office. There was no immediate complication. There was no sample taken. MMODL / IJN: [id number] /
== END ==
LOC: ORWHC2ENDO 12:22
PROVIDERS: ATTEND Internal Medicine Critical Care Medicine
DX: R59.1 Generalized enlarged lymph nodes (principal); I48.91 Unspecified atrial fibrillation; I11.0 Hypertensive heart disease with heart failure; I50.9 Heart failure, unspecified; R73.03 Prediabetes; M19.90 Unspecified osteoarthritis, unspecified site; Z89.231 Acquired absence of right shoulder; Z88.8 Allergy status to other drugs, medicaments and biological substances; Z79.899 Other long term (current) drug therapy
CPT/HCPCS: 31624; J2003 ×2; J2704; 31645